=== PATIENT | male | born 1990 | race Caucasian/White ===

== ENCOUNTER 2017-02-11 14:02 | Inpatient (IN) | payer BC, OTHER ==
[~2017-02-11] VITALS: Ht 188 cm; Wt 154.7 kg
[~2017-02-11 14:02] MED LIST: PIPERACILLIN/TAZOBACTAM 4.5 GM/NS 100 ML IVPB IV SCH
--- NOTE | 2017-02-11 14:36 | ED Abdominal Pain ---
General Chief Complaint: Abdominal/GI Problems Stated Complaint: ABD PAIN Nursing Triage Note: FREQUENT UTI'S, BLOODY BM OVER THE PAST YEAR. Sepsis Screen: No Definite Risk Source of Information: Patient Exam Limitations: No Limitations History of Present Illness Time Seen By Provider: 14:34 Initial Comments To ER with intermittent abdominal pain suprapubic and left lower quadrant in location over the past year. [facility] and is told that he has a urinary tract infection but they recur. He also states that he lost about 50 pounds over the past year and has occasionally some bloody or dark black stools. He was told at one point that someone thought he had ulcerative colitis but he is never seen a surgeon for colonoscopy. Timing/Duration: 1-2 Days Severity/Quality: Cramping Location: Suprapubic Radiation: No Radiation Activities at Onset: None Associated Symptoms: No Fever/Chills, No Nausea/Vomiting Allergies and Home Medications Allergies Coded Allergies: No Allergy Information Available (Unverified , 02/11/17) Home Medications Ciprofloxacin HCl 500 Mg Tablet, 500 MG PO BID, #20 Prescribed by: YESY MOSS on 02/11/17 1626 Hydrocodone/Acetaminophen 1 Each Tablet, 1 EACH PO Q4H PRN for PAIN-MODERATE TO SEVERE, #14 Prescribed by: YESY MOSS on 02/11/176 Metronidazole 500 Mg Tablet, 500 MG PO TID for 30 Days Prescribed by: YESY MOSS on 02/11/176 Review of Systems Constitutional: see HPI EENTM: No Symptoms Reported Respiratory: No Symptoms Reported Cardiovascular: No Symptoms Reported Gastrointestinal: See HPI, Abdominal Pain Genitourinary: No Symptoms Reported Musculoskeletal: no symptoms reported Skin: no symptoms reported Psychiatric/Neurological: No Symptoms Reported Endocrine: No Symptoms Reported Hematologic/Lymphatic: No Symptoms Reported Past Mgjgtun-Meycro-Xipjva Hx Patient Social History Alcohol Use: Denies Use Recreational Drug Use: No Smoking Status: Never a Smoker Type Used: Electronic/Vapor Recent Foreign Travel: No Contact w/Someone Who Travel: No Recent Infectious Disease Expo: No Recent Hopitalizations: No Surgeries HX Surgeries: No Respiratory Hx Respiratory Disorders: No Cardiovascular Hx Cardiac Disorders: No Neurological Hx Neurological Disorders: No Genitourinary Hx Genitourinary Disorders: No Musculoskeletal Hx Musculoskeletal Disorders: No Endocrine Hx Endocrine Disorders: No Cancer Hx Cancer: No Physical Exam Vital Signs VS - Last 72 Hours, by Label 02/11/17 14:23 Temp 98.3 Pulse 100 Resp 18 B/P (MAP) 146/102 Pulse Ox 97 Capillary Refill : Less Than 3 Seconds General Appearance: WD/WN, no apparent distress, obese HEENT: PERRL/EOMI, normal ENT inspection Neck: non-tender, full range of motion Respiratory: lungs clear, normal breath sounds, no respiratory distress, no accessory muscle use Cardiovascular: regular rate, rhythm, no murmur Gastrointestinal: normal bowel sounds, non tender, soft Extremities: normal range of motion, non-tender, normal inspection Neurologic/Psychiatric: alert, normal mood/affect, oriented x 3 Skin: normal color, warm/dry Progress/Results/Core Measures Results/Orders Lab Results Laboratory Tests Test 02/11/17 14:22 02/11/17 14:27 02/11/17 14:30 Range/Units White Blood Count 19.2 H 4.3-11.0 10^3/uL Red Blood Count 5.23 4.35-5.85 10^6/uL Hemoglobin 15.5 13.3-17.7 G/DL Hematocrit 45 40-54 % Mean Corpuscular Volume 86 80-99 FL Mean Corpuscular Hemoglobin 30 25-34 PG Mean Corpuscular Hemoglobin Concent 34 32-36 G/DL Red Cell Distribution Width 13.3 10.0-14.5 % Platelet Count 314 130-400 10^3/uL Mean Platelet Volume 9.7 7.4-10.4 FL Neutrophils (%) (Auto) 85 H 42-75 % Lymphocytes (%) (Auto) 8 L 12-44 % Monocytes (%) (Auto) 6 0-12 % Eosinophils (%) (Auto) 1 0-10 % Basophils (%) (Auto) 0 0-10 % Neutrophils # (Auto) 16.3 H 1.8-7.8 X 10^3 Lymphocytes # (Auto) 1.6 1.0-4.0 X 10^3 Monocytes # (Auto) 1.2 H 0.0-1.0 X 10^3 Eosinophils # (Auto) 0.1 0.0-0.3 10^3/uL Basophils # (Auto) 0.1 0.0-0.1 10^3/uL Neutrophils % (Manual) 86 % Lymphocytes % (Manual) 3 % Monocytes % (Manual) 8 % Eosinophils % (Manual) 0 % Basophils % (Manual) 0 % Band Neutrophils 3 % Blood Morphology Comment NORMAL Erythrocyte Sedimentation Rate 5 0-15 MM/HR Sodium Level 139 135-145 MMOL/L Potassium Level 4.3 3.6-5.0 MMOL/L Chloride Level 104 98-107 MMOL/L Carbon Dioxide Level 26 21-32 MMOL/L Anion Gap 9 5-14 MMOL/L Blood Urea Nitrogen 10 7-18 MG/DL Creatinine 0.84 0.60-1.30 MG/DL Estimat Glomerular Filtration Rate > 60 BUN/Creatinine Ratio 12 Glucose Level 94 70-105 MG/DL Calcium Level 9.5 8.5-10.1 MG/DL Total Bilirubin 1.3 H 0.1-1.0 MG/DL Aspartate Amino Transf (AST/SGOT) 26 5-34 U/L Alanine Aminotransferase (ALT/SGPT) 45 0-55 U/L Alkaline Phosphatase 70 40-136 U/L Total Protein 8.5 H 6.4-8.2 G/DL Albumin 4.6 H 3.2-4.5 G/DL Urine Color YELLOW Urine Clarity CLEAR Urine pH 7 5-9 Urine Specific [place] 1.010 L 1.016-1.022 Urine Protein NEGATIVE NEGATIVE Urine Glucose (UA) NEGATIVE NEGATIVE Urine Ketones NEGATIVE NEGATIVE Urine Nitrite NEGATIVE NEGATIVE Urine Bilirubin NEGATIVE NEGATIVE Urine Urobilinogen 1 NORMAL MG/DL Urine Leukocyte Esterase 1+ H NEGATIVE Urine RBC (Auto) NEGATIVE NEGATIVE Urine RBC NONE /HPF Urine WBC RARE /HPF Urine Squamous Epithelial Cells 2-5 /HPF Urine Crystals NONE /LPF Urine Bacteria NEGATIVE /HPF Urine Casts NONE /LPF Urine Mucus NEGATIVE /LPF Urine Culture Indicated NO My Orders Orders - YESY MOSS APRN Cbc With Automated Diff (02/11/17 14:33) Comprehensive Metabolic Panel (02/11/17 14:33) Ua Culture If Indicated (02/11/17 14:33) Saline Lock/Iv-Start (02/11/17 14:33) Erythrocyte Sedimentation Rate (02/11/17 14:33) Ct Abdomen/Pelvis W (02/11/17 14:33) Manual Differential (02/11/17 14:22) Piperacillin Sodium/Tazobactam (Zosyn Vi (02/11/17 16:15) Ketorolac Injection (Toradol Injection) (02/11/17 16:15) Fentanyl Injection (Sublimaze Injection (02/11/17 16:15) Medications Given in ED Current Medications Medications Dose Ordered Sig/Sharon Route Start Time Stop Time Status Last Admin Dose Admin Fentanyl Citrate 50 mcg ONCE ONCE IVP 02/11/17 16:15 02/11/17 16:16 DC 02/11/17 16:41 50 MCG Ketorolac Tromethamine 30 mg ONCE ONCE IVP 02/11/17 16:15 02/11/17 16:16 DC 02/11/17 16:41 30 MG Piperacillin Sod/ Tazobactam Sod 4.5 gm/Sodium Chloride 100 ml @ 200 mls/hr ONCE ONCE IV 02/11/17 16:15 02/11/17 16:44 DC 02/11/17 16:44 200 MLS/HR Vital Signs/I&O Vital Sign - Last 12Hours 02/11/17 14:23 Temp 98.3 Pulse 100 Resp 18 B/P (MAP) 146/102 Pulse Ox 97 Blood Pressure Mean: 117 Departure Communication Time/Spoke to Admitting Phy: 17:29 Communication I discussed the case with Dr. SALDAÑA will review the CT scan and labs and waxes recommend inpatient admission. I just spoke with Dr. Yao Valera who has agreed to see the patient this Saturday at 10 a.m. to establish care. [facility] but states that he is seen him several times for this and couldn't seem to get a straight answer and would like his care transferred. Time/Spoke to Consulting Physi: 17:30 Communication/Consulting We will admit to Dr. Yao Valera, consult Dr. Saldaña. Impression Impression: Primary Impression: Sigmoid diverticulitis Disposition: ADMITTED INPATIENT Condition: Stable Departure-Patient Inst. Decision time for Depature: 16:22 Referrals: [facility] [place]) Primary Care Physician YAO VALERA MD Patient Instructions: Diverticulitis (DC) Add. Discharge Instructions: 1. Clear liquids only for the next 24 hours this includes soup, Gatorade, Jell- O, chicken broth or anything that you can see through 2. You must return probably to the emergency room for any high fevers, worsening pain or other concerns 3. Start the antibiotics tonight 4. Your scheduled to see Dr. Yao Valera Saturday morning at 11 a.m. at his office. The address is been provided. You should bring your insurance card and a photo ID with you. All discharge instructions reviewed with patient and/ or family. Voiced understanding. Scripts Metronidazole (Flagyl) 500 Mg Tablet 500 MG PO TID for 30 Days, TAB Prov: YESY MOSS APRN 02/11/17 Ciprofloxacin HCl (Cipro) 500 Mg Tablet 500 MG PO BID, #20 TAB Prov: YESY MOSS APRN 02/11/17 Hydrocodone/Acetaminophen ([place] 5-325 Tablet) 1 Each Tablet 1 EACH PO Q4H Y for PAIN-MODERATE TO SEVERE, #14 TAB Prov: YESY MOSS APRN 02/11/17 Work/School Note: Work Release Form Date Seen in the Emergency Department: Feb 14, 2017 Return to Work: Feb 11, 2017 Restrictions: No Restrictions Copy Copies To 1: YAO VALERA MD, PETER J APRN Feb 11, 2017 14:36
[2017-02-11 14:42] LABS: BASOPHILS # (AUTO) 0.1 10^3/uL (0.0-0.1); BASOPHILS % (AUTO) 0 % (0-10); EOSINOPHILS # (AUTO) 0.1 10^3/uL (0.0-0.3); EOSINOPHILS % (AUTO) 1 % (0-10); LYMPHOCYTES # (AUTO) 1.6 X 10^3 (1.0-4.0); LYMPHOCYTES % (AUTO) 8 % (12-44); MEAN CORPUSCULAR HEMOGLOBIN 30 PG (25-34); MEAN CORPUSCULAR HGB CONC 34 G/DL (32-36); MEAN CORPUSCULAR VOLUME 86 FL (80-99); MEAN PLATELET VOLUME 9.7 FL (7.4-10.4); MONOCYTES # (AUTO) 1.2 X 10^3 (0.0-1.0); MONOCYTES % (AUTO) 6 % (0-12); NEUTROPHILS # (AUTO) 16.3 X 10^3 (1.8-7.8); NEUTROPHILS % (AUTO) 85 % (42-75); PLATELET COUNT 314 10^3/uL (130-400); RED BLOOD COUNT 5.23 10^6/uL (4.35-5.85); RED CELL DISTRIBUTION WIDTH 13.3 % (10.0-14.5); WHITE BLOOD COUNT 19.2 10^3/uL (4.3-11.0)
[2017-02-11 14:49] LABS: BILIRUBIN,URINE NEGATIVE (NEGATIVE); KETONES,URINE NEGATIVE (NEGATIVE); LEUKOCYTE ESTERASE ,URINE 1+ (NEGATIVE); NITRITE,URINE NEGATIVE (NEGATIVE); PH,URINE 7 (5-9); PROTEIN,URINE NEGATIVE (NEGATIVE); UROBILINOGEN,URINE 1 MG/DL (NORMAL)
[2017-02-11 14:55] LABS: WBC,URINE RARE /HPF
[2017-02-11 14:57] LABS: BAND NEUTROPHILS 3 %; BASOPHILS % (MANUAL) 0 %; EOSINOPHILS % (MANUAL) 0 %; LYMPHOCYTES % (MANUAL) 3 %; NEUTROPHILS % (MANUAL) 86 %
[2017-02-11 15:02] LABS: ERYTHROCYTE SEDIMENTATION RATE 5 MM/HR (0-15)
[2017-02-11 15:02] LABS: ALANINE AMINOTRANSFERASE 45 U/L (0-55); ALBUMIN 4.6 G/DL (3.2-4.5); ANION GAP 9 MMOL/L (5-14); ASPARTATE AMINO TRANSFERASE 26 U/L (5-34); BILIRUBIN,TOTAL 1.3 MG/DL (0.1-1.0); BLOOD UREA NITROGEN 10 MG/DL (7-18); BUN/CREATININE RATIO 12; CALCIUM 9.5 MG/DL (8.5-10.1); CARBON DIOXIDE 26 MMOL/L (21-32); CHLORIDE 104 MMOL/L (98-107); CREATININE SERUM 0.84 MG/DL (0.60-1.30); GFR ESTIMATED > 60; GLUCOSE 94 MG/DL (70-105); POTASSIUM 4.3 MMOL/L (3.6-5.0); SODIUM 139 MMOL/L (135-145); TOTAL PROTEIN 8.5 G/DL (6.4-8.2)
--- NOTE | 2017-02-11 16:12 | Diagnostic Imaging Report ---
PROCEDURE: CT abdomen and pelvis with contrast. TECHNIQUE: Multiple contiguous axial images were obtained through the abdomen and pelvis after administration of intravenous contrast. INDICATION: Abdominal pain. 100 mL of Omnipaque-350 is administered intravenously. FINDINGS: There is sigmoid diverticulitis with significant inflammation around the sigmoid colon and loculated air anteriorly probably related to the ruptured diverticulum. There is minimal amount of fluid seen with no abscess formation. Small amount of free fluid in the pelvis in the cul-de-sac and adjacent to the superior right side aspect of the urinary bladder also noted. There is normal appearance of the appendix. There is no bowel obstruction. The abdominal aorta is normal in caliber. No para-aortic significantly enlarged lymph node is seen. No free air. The kidneys have symmetric contrast enhancement. There is a nonobstructive stone in the mid right kidney measuring 4 mm. No hydronephrosis. The liver demonstrates diffuse steatosis. No focal lesion seen. The gallbladder demonstrates no calcified stone. The spleen is 16.2 cm in AP dimension, mildly enlarged. The adrenals and the pancreas appear unremarkable. The lung bases appear clear. The osseous structures appear grossly unremarkable. IMPRESSION: Acute sigmoid diverticulitis. No abscess. The findings were discussed with Pio Jones, the ER physician esl instructional assistant taking care of the patient, at time of dictation. Dictated by: Dictated on workstation # [id number]
[2017-02-11] MEDS ORDERED: fentaNYL INJECTION 100 MCG/2 ML AMP IVP ONE (16:15)
[2017-02-11] MEDS ORDERED: PIPERACILLIN SODIUM/TAZOBACTAM 4.5 GM in NS (IVPB) 100 ML IV ONE (16:15)
[2017-02-11] MEDS ORDERED: KETOROLAC 30 MG/ML VIAL IVP ONE (16:15)
[2017-02-11] MEDS ORDERED: METR500T PO (16:26)
[2017-02-11] MEDS ORDERED: HYDR-757 PO (16:26)
[2017-02-11] MEDS ORDERED: CIPR-225 PO (16:26)
[2017-02-11] MEDS ORDERED: NS IV 1000 ML 1,000 ML IV SCH (19:15)
--- NOTE | 2017-02-11 19:15 | Consultation ---
History of Present Illness History of Present Illness Patient Consulted On(tyrone/time) 02/11/17 19:08 Date of Admission 02/11/17 History of Present Illness Surgery is consulted regarding Diverticulitis. HPI: Chief Complaint: Abdominal/GI Problems, Pt to ER with intermittent abdominal pain suprapubic and left lower quadrant in location over the past year ; "since March". He has been to [facility] for these episodes and was told that he had a urinary tract infection. However, he states they recur every month. He also states that he lost about 50 pounds over the past year and has occasionally some bloody or dark black stools. He was told at one point that someone thought he had ulcerative colitis but he is never seen a surgeon for colonoscopy. He also states he was told "my liver tests are elevated". Complains of changes in bowel habits, "loose stools and then constipation". Rating the pain as 4-5 out of 10, on 1-10 scale. Helped by taking ABX, not really sure if anything makes it worse. Denies seeing any air, flecks of brown while urinating. This episode has lasted 1-2 Days. Describes it as more of a cramping. Located suprapubically, used to radiate into his back...but not with this episode. Pt denies Fever/Chills, No Nausea/Vomiting. No elevated temp this time, but has had 101 and 102 temps with previous episodes. He thinks it usually starts in LLQ and goes down toward "bladder". Allergies and Home Medications Allergies Coded Allergies: No Allergy Information Available (Unverified , 02/11/17) Home Medications Ciprofloxacin HCl 500 Mg Tablet, 500 MG PO BID, #20 Prescribed by: YESY MOSS on 02/11/17 1626 Hydrocodone/Acetaminophen 1 Each Tablet, 1 EACH PO Q4H PRN for PAIN-MODERATE TO SEVERE, #14 Prescribed by: YESY MOSS on 02/11/17 1626 Metronidazole 500 Mg Tablet, 500 MG PO TID for 30 Days Prescribed by: YESY MOSS on 02/11/17 1626 Past Bpqgjpq-Kfwfvu-Hgkghn Hx Patient Social History Alcohol Use: Denies Use Recreational Drug Use: No Smoking Status: Never a Smoker Type Used: Electronic/Vapor Recent Foreign Travel: No Contact w/Someone Who Travel: No Recent Infectious Disease Expo: No Recent Hopitalizations: No Surgeries HX Surgeries: No Respiratory Hx Respiratory Disorders: No Cardiovascular Hx Cardiac Disorders: No Neurological Hx Neurological Disorders: No Genitourinary Hx Genitourinary Disorders: No Musculoskeletal Hx Musculoskeletal Disorders: No Endocrine Hx Endocrine Disorders: No Cancer Hx Cancer: No Family Medical History Significant Family History: Diabetes (mother type I, father and grandparents type II), GI Disease (Pt denies any history of colon problems in his family) Review of Systems-General Constitutional: No chills, No diaphoresis, No dizziness, malaise, weight loss ( 50 lbs since March) EENTM: No blurred vision, No dental problems, No double vision, No ear pain, No throat pain, No throat swelling Respiratory: No cough, No dyspnea on exertion, No hemoptysis, No short of breath Cardiovascular: No chest pain, No edema, No palpitations Gastrointestinal: LLQ, constipation, diarrhea, melena, No vomiting Genitourinary: dysuria, frequency, No hematuria Musculoskeletal: back pain, No joint pain, No muscle pain, No muscle weakness Skin: No change in color, No change in hair/nails, No lesions Psychiatric/Neurological: Denies Anxiety, Denies Seizure, Denies Tingling, Denies Tremors Other pt denies any abnormal bleeding, no heat or cold intolerance. Denies any swollen lymph nodes Physical Exam-General Problems Physical Exam Vital Signs Vital Sign - Last 12Hours 02/11/17 14:23 Temp 98.3 Pulse 100 Resp 18 B/P (MAP) 146/102 Pulse Ox 97 Capillary Refill : Less Than 3 Seconds General Appearance: WD/WN, mild distress, obese Eyes: Bilateral Eye EOMI, Bilateral Eye PERRL HEENT: pharynx normal, No scleral icterus (R), No scleral icterus (L), No pale conjunctivae (R), No pale conjunctivae (L) Neck: non-tender, full range of motion, supple, normal inspection Respiratory: chest non-tender, lungs clear, normal breath sounds, no respiratory distress, no accessory muscle use Cardiovascular: regular rate, rhythm, no edema, no gallop, no murmur Peripheral Pulses: 4+ Carotid (R), 4+ Carotid (L), 4+ Radial Pulses (R), 4+ Radial Pulses (L) Gastrointestinal: normal bowel sounds, no organomegaly, no pulsatile mass, guarding (voluntary in LLQ), No rebound, hernia (small UH, questionable small RIH) Back: normal inspection, no CVA tenderness, no vertebral tenderness Extremities: normal range of motion, non-tender, normal inspection, no pedal edema, no calf tenderness 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3H, Lymphocytes # (Auto) 1.6, Monocytes # (Auto) 1.2H, Eosinophils # (Auto) 0.1, Basophils # (Auto) 0.1, Neutrophils % (Manual) 86, Lymphocytes % (Manual) 3, Monocytes % (Manual) 8, Eosinophils % (Manual) 0, Basophils % (Manual) 0, Band Neutrophils 3, Blood Morphology Comment NORMAL, Erythrocyte Sedimentation Rate 5 02/11/17 14:27: Sodium Level 139, Potassium Level 4.3, Chloride Level 104, Carbon Dioxide Level 26, Anion Gap 9, Blood Urea Nitrogen 10, Creatinine 0.84, Estimat Glomerular Filtration Rate > 60, BUN/Creatinine Ratio 12, Glucose Level 94, Calcium Level 9.5, Total Bilirubin 1.3H, Aspartate Amino Transf (AST/SGOT) 26, Alanine Aminotransferase (ALT/SGPT) 45, Alkaline Phosphatase 70, Total Protein 8.5H, Albumin 4.6H 02/11/17 14:30: Urine Color YELLOW, Urine Clarity CLEAR, Urine pH 7, Urine Specific [place] 1.010L, Urine Protein NEGATIVE, Urine Glucose (UA) NEGATIVE, Urine Ketones NEGATIVE, Urine Nitrite NEGATIVE, Urine Bilirubin NEGATIVE, Urine Urobilinogen 1 , Urine Leukocyte Esterase 1+H, Urine RBC (Auto) NEGATIVE, Urine RBC NONE, Urine WBC RARE, Urine Squamous Epithelial Cells 2-5, Urine Crystals NONE, Urine Bacteria NEGATIVE, Urine Casts NONE, Urine Mucus NEGATIVE, Urine Culture Indicated NO Assessment/Plan Assessment/Plan Assessment/Plan 1. Acute Diverticulitis with contained perforation 2. Chronic UTI's 3. Leukocytosis secondary to #1 4. Hypertension Plan is IVF, IV ABX, NPO, recheck labs. Pt may have a [place]-vesical fistula, will obtain a Urology consult (which can be done as an outpt). Pt will need a colonoscopy, also can probably be done as an outpt. I talked with pt and his for over 40 min, we talked about the amount of time he has had symptoms and problems. Discussed the natural course of Diverticulitis and whether it is affecting his daily life. I also talked about my suspicions of a fistula. He most likely will need surgery sooner rather than; but not during this admission. We talked about surgery and timing; don't want to risk a possible ostomy. All questions answered to their satisfaction. I will follow while he is in the hospital and then would schedule a visit once he is discharged. His high blood pressure may be due to pain, but could be due to body habitus; should be monitored. BESS JACKSON DO Feb 11, 2017 19:15
[2017-02-11] MEDS: LACTATED RINGERS 1,000 ML IV SCH (19:53)
[2017-02-11 19:55] VITALS: BP 122/69
[2017-02-11] MEDS: fentaNYL INJECTION 100 MCG/2 ML AMP IVP PRN (20:47)
--- NOTE | 2017-02-11 21:49 | History & Physical ---
History of Present Illness History of Present Illness Reason for visit/HPI 26 yo Male admitted for acute sigmoid diverticulitis- patient reports this abdominal pain has been going on for a while estimates about March 2016 at least. Patient has been a patient of [facility] and plans to transfer to [facility] for further evaluation of his medical concerns. Patient reports he's had approximately 10 urinary tract infections and he has been on antibiotics by [facility] and he improves during the duration of being on antibiotic but the abdominal pain returns. He has not had any further workup for these recurrent UTIs just treated with antibiotics each time. Patient does report a 50 pound weight loss over the past year but he cannot explain it as he hasn't really changed his diet much nor has he increased his exercise regimen. Patient has had bloody and/or dark black stools along with sometimes diarrhea sometimes constipation. 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 Patient denies any drug use nor any tobacco use but does use a vapor device. Patient also quit drinking right after his honeymoon as he was told his liver function tests were elevated. Patient's abdominal pain is LLQ currently- IVF, zosyn and fentanyl are helping him currently. He is NPO. CT of abdomen demonstrating diverticulitis concern for possible contained perforation. Admitted for further work up. Dr. Kong consulted and on the case. He he got in August 2016 and reports he remembers taking pain medications just to get through wedding pictures. Date of Admission Feb 11, 2017 at 17:25 I consulted on this patient on 02/11/17 21:37 Attending Physician Yao Valera MD Admitting Physician Yao Valera MD Consult Dr. Kong Allergies and Home Medications Allergies Coded Allergies: cat dander (Verified Allergy, Unknown, 02/11/17) Home Medications Loratadine 10 Mg Tablet, 10 MG PO DAILY PRN for ALLERGIES, (Reported) Naproxen Sodium 220 Mg Tablet, 220-440 MG PO Q8H PRN for PAIN-MILD, (Reported) Past Bsnoxbo-Omobbd-Zyeita Hx Patient Social History Alcohol Use: Denies Use Recreational Drug Use: No Smoking Status: Never a Smoker Type Used: Electronic/Vapor Recent Foreign Travel: No Contact w/other who traveled: No Recent Hopitalizations: No Recent Infectious Disease Expo: No Surgeries HX Surgeries: No Respiratory Hx Respiratory Disorders: No Cardiovascular Hx Cardiovascular Disorders: No Neurological Hx Neurological Disorders: No Genitourinary Hx Genitourinary Disorders: No Musculoskeletal Hx Musculoskeletal Disorders: No Endocrine Hx Endocrine Disorders: No Cancer Hx Cancer: No Family Medical History Significant Family History: Diabetes (mother type I, father and grandparents type II), GI Disease (Pt denies any history of colon problems in his family) Family Hx: Diabetes mellitus 19 FATHER 19 MOTHER Review of Systems Review of Systems General: No Chills, No Night Sweats, Fatigue, Malaise, Appetite HEENT: Head Aches (occassional) Pulmonary: No Dyspnea, No Cough Cardiovascular: No: Chest Pain, Palpitations Gastrointestinal: Abdominal Pain, No: Nausea, Vomiting Genitourinary: No Dysuria Musculoskeletal: back pain, No: neck pain Neurological: No: Numbness, Weakness Physical Exam Vital Signs Vital Sign - Last 12Hours 02/11/17 02/11/17 14:23 19:55 Temp 98.3 Pulse 100 Resp 18 B/P (MAP) 146/102 Pulse Ox 97 O2 Delivery Room Air Capillary Refill : Less Than 3 Seconds General Appearance: Mild Distress HEENT: PERRL/EOMI Neck: Full Range of Motion, Non Tender Respiratory: Chest Non Tender, Lungs Clear, Normal Breath Sounds, No Accessory Muscle Use, No Respiratory Distress Cardiovascular: Regular Rate, Rhythm, No Edema Gastrointestinal: Normal Bowel Sounds, Tenderness (LLQ) Rectal: Deferred Back: No CVA Tenderness Extremity: Non Tender, No Calf Tenderness Neurologic/Psychiatric: Alert, Oriented x3, No Motor/Sensory Deficits, Normal Mood/Affect Skin: Warm/Dry Assessment/Plan Assessment/Plan Assessment/Plan 26 yo M Acute sigmoid diverticulitis- IVF, fentanyl, zosyn- NPO for now- monitor WBC , fever, appetite -ulcerative colitis? Abdominal pain due to above- plan as above elevated BP w/o diagnosis of HTN- monitor, may be due to pain h/o recurrent UTIs- no work up- urology outpt referral for cystoscopy- possible fistula (colo-vesicular fistula)- Dispo: IVF, pain management, NPO- monitor- plan to d/c 02/13 or 2016- will need outpt colonoscopy- and likely surgery to resect bowel. Outpt workup with urology for recurrent uti. Problems: YAO VALERA MD Feb 11, 2017 21:49
[2017-02-11] MEDS: ONDANSETRON 4 MG/2 ML (SDV) Z0FRAN IVP PRN (22:44)
[2017-02-11] MEDS: PIPERACILLIN/TAZOBACTAM 4.5 GM/NS 100 ML IVPB IV SCH ×2 (22:57)
[2017-02-12 00:35] VITALS: BP 121/59
[2017-02-12] MEDS: LACTATED RINGERS 1,000 ML IV SCH ×4 (01:51→18:17)
[2017-02-12 04:28] VITALS: BP 110/55
[2017-02-12 05:12] LABS: BASOPHILS % (AUTO) 0 % (0-10); EOSINOPHILS % (AUTO) 0 % (0-10); LYMPHOCYTES % (AUTO) 11 % (12-44); MEAN CORPUSCULAR HEMOGLOBIN 30 PG (25-34); MEAN CORPUSCULAR HGB CONC 34 G/DL (32-36); MEAN CORPUSCULAR VOLUME 88 FL (80-99); MEAN PLATELET VOLUME 9.9 FL (7.4-10.4); MONOCYTES % (AUTO) 11 % (0-12); NEUTROPHILS # (AUTO) 14.4 X 10^3 (1.8-7.8); NEUTROPHILS % (AUTO) 78 % (42-75); PLATELET COUNT 287 10^3/uL (130-400); RED BLOOD COUNT 4.63 10^6/uL (4.35-5.85); RED CELL DISTRIBUTION WIDTH 13.2 % (10.0-14.5); WHITE BLOOD COUNT 18.4 10^3/uL (4.3-11.0)
[2017-02-12] MEDS: PIPERACILLIN/TAZOBACTAM 4.5 GM/NS 100 ML IVPB IV SCH ×6 (06:02→23:53)
[2017-02-12] MEDS: fentaNYL INJECTION 100 MCG/2 ML AMP IVP PRN ×2 (06:05→08:32)
[2017-02-12] MEDS: ONDANSETRON 4 MG/2 ML (SDV) Z0FRAN IVP PRN (06:05)
[2017-02-12 06:24] LABS: ALANINE AMINOTRANSFERASE 31 U/L (0-55); ALBUMIN 3.8 G/DL (3.2-4.5); ANION GAP 13 MMOL/L (5-14); ASPARTATE AMINO TRANSFERASE 21 U/L (5-34); BLOOD UREA NITROGEN 10 MG/DL (7-18); BUN/CREATININE RATIO 11; CALCIUM 8.9 MG/DL (8.5-10.1); CARBON DIOXIDE 23 MMOL/L (21-32); CHLORIDE 101 MMOL/L (98-107); CREATININE SERUM 0.89 MG/DL (0.60-1.30); GFR ESTIMATED > 60; GLUCOSE 104 MG/DL (70-105); POTASSIUM 3.9 MMOL/L (3.6-5.0); SODIUM 137 MMOL/L (135-145); TOTAL PROTEIN 7.1 G/DL (6.4-8.2)
[2017-02-12 08:00] VITALS: BP 138/86
[2017-02-12] MEDS ORDERED: NAPR220T66 PO (08:37)
[2017-02-12] MEDS ORDERED: LORA10TA76 PO (08:37)
[2017-02-12] MEDS: morphine INJ 4 MG/ML 1 ML (VIAL/SYRINGE) IVP PRN ×4 (10:33→22:24)
[2017-02-12 11:40] VITALS: BP 154/80
--- NOTE | 2017-02-12 13:12 | Progress Note ---
Subjective Subjective/Events-last exam Pt seen and examined, was having more pain this am; not helped by Fentanyl. I switched him to IV Morphine and that has helped. He states he felt "dehydrated" and was given some ice chips. Has not had a fever (not 100.4 or more yet). Pain rated as 3 out of 10 after morphine, but comes back in 2 hours. Review of Systems General: Fatigue, Malaise HEENT: No Head Aches, No Eye Pain Pulmonary: No Dyspnea, No Cough Cardiovascular: No: Chest Pain, Palpitations Gastrointestinal: Abdominal Pain, No: Vomiting Genitourinary: Dysuria, No Hematuria Objective Exam Vital Signs Date Time Temp Pulse Resp B/P (MAP) Pulse Ox O2 Delivery O2 Flow Rate FiO2 02/12/17 11:40 100.0 106 16 154/80 93 Room Air 02/12/17 10:10 98 02/12/17 08:36 99.8 02/12/17 08:00 97.6 83 18 138/86 98 Room Air 02/12/17 04:28 98.7 85 18 110/55 97 Room Air 02/12/17 00:35 97.7 100 20 121/59 97 Room Air 02/11/17 19:55 99.4 112 18 122/69 98 Room Air 02/11/17 18:44 98 16 96 02/11/17 14:23 98.3 100 18 146/102 97 I & O 02/12/17 07:00 Intake Total 1200 ml Output Total 825 ml Balance 375 ml Capillary Refill : Less Than 3 Seconds General Appearance: WD/WN, Mild Distress HEENT: PERRL/EOMI Neck: Full Range of Motion, Non Tender Respiratory: Chest Non Tender, Lungs Clear, Normal Breath Sounds, No Accessory Muscle Use, No Respiratory Distress Cardiovascular: Regular Rate, Rhythm, No Edema Peripheral Pulses: 4+ Carotid (R), 4+ Carotid (L), 4+ Radial Pulses (R), 4+ Radial Pulses (L) Gastrointestinal: normal bowel sounds, no organomegaly, no pulsatile mass, guarding (voluntary in LLQ), No rebound, hernia (small UH, questionable small RIH) Extremity: Non Tender, No Calf Tenderness Neurologic/Psychiatric: Alert, Oriented x3, No Motor/Sensory Deficits, Normal Mood/Affect Skin: Warm/Dry Results Lab Laboratory Tests 02/11/17 14:22: White Blood Count 19.2H, Red Blood Count 5.23, Hemoglobin 15.5, Hematocrit 45, Mean Corpuscular Volume 86, Mean Corpuscular Hemoglobin 30, Mean Corpuscular Hemoglobin Concent 34, Red Cell Distribution Width 13.3, Platelet Count 314, Mean Platelet Volume 9.7, Neutrophils (%) (Auto) 85H, Lymphocytes (%) (Auto) 8L , Monocytes (%) (Auto) 6, Eosinophils (%) (Auto) 1, Basophils (%) (Auto) 0, Neutrophils # (Auto) 16.3H, Lymphocytes # (Auto) 1.6, Monocytes # (Auto) 1.2H, Eosinophils # (Auto) 0.1, Basophils # (Auto) 0.1, Neutrophils % (Manual) 86, Lymphocytes % (Manual) 3, Monocytes % (Manual) 8, Eosinophils % (Manual) 0, Basophils % (Manual) 0, Band Neutrophils 3, Blood Morphology Comment NORMAL, Erythrocyte Sedimentation Rate 5 02/11/17 14:27: Sodium Level 139, Potassium Level 4.3, Chloride Level 104, Carbon Dioxide Level 26, Anion Gap 9, Blood Urea Nitrogen 10, Creatinine 0.84, Estimat Glomerular Filtration Rate > 60, BUN/Creatinine Ratio 12, Glucose Level 94, Calcium Level 9.5, Total Bilirubin 1.3H, Aspartate Amino Transf (AST/SGOT) 26, Alanine Aminotransferase (ALT/SGPT) 45, Alkaline Phosphatase 70, Total Protein 8.5H, Albumin 4.6H 02/11/17 14:30: Urine Color YELLOW, Urine Clarity CLEAR, Urine pH 7, Urine Specific [place] 1.010L, Urine Protein NEGATIVE, Urine Glucose (UA) NEGATIVE, Urine Ketones NEGATIVE, Urine Nitrite NEGATIVE, Urine Bilirubin NEGATIVE, Urine Urobilinogen 1 , Urine Leukocyte Esterase 1+H, Urine RBC (Auto) NEGATIVE, Urine RBC NONE, Urine WBC RARE, Urine Squamous Epithelial Cells 2-5, Urine Crystals NONE, Urine Bacteria NEGATIVE, Urine Casts NONE, Urine Mucus NEGATIVE, Urine Culture Indicated NO 02/12/17 04:10: White Blood Count 18.4H, Red Blood Count 4.63, Hemoglobin 13.9, Hematocrit 41, Mean Corpuscular Volume 88, Mean Corpuscular Hemoglobin 30, Mean Corpuscular Hemoglobin Concent 34, Red Cell Distribution Width 13.2, Platelet Count 287, Mean Platelet Volume 9.9, Neutrophils (%) (Auto) 78H, Lymphocytes (%) (Auto) 11L , Monocytes (%) (Auto) 11, Eosinophils (%) (Auto) 0, Basophils (%) (Auto) 0, Neutrophils # (Auto) 14.4H, Lymphocytes # (Auto) 2.0, Monocytes # (Auto) 2.0H, Eosinophils # (Auto) 0.0, Basophils # (Auto) 0.0, Sodium Level 137, Potassium Level 3.9, Chloride Level 101, Carbon Dioxide Level 23, Anion Gap 13, Blood Urea Nitrogen 10, Creatinine 0.89, Estimat Glomerular Filtration Rate > 60, BUN/ Creatinine Ratio 11, Glucose Level 104, Calcium Level 8.9, Total Bilirubin 2.0H , Aspartate Amino Transf (AST/SGOT) 21, Alanine Aminotransferase (ALT/SGPT) 31, Alkaline Phosphatase 58, Total Protein 7.1, Albumin 3.8 Assessment/Plan Assessment/Plan Assessment/Plan 1. Acute Sigmoid Diverticulitis with ?? Colovesical fistula 2. HTN 3. Chronic UTI 4. Elevated Bilirubin Plan: Continue IV fluids and IV ABX. Recheck labs. Not sure why Bilirubin is elevated, will order liver panel. Switched pain meds for better pain control. Spoke with Dr. Castillo, will see pt as outpt. Ice chips ok, would avoid PO because Diverticulitis does not seem to be improving quickly. Would hold PO until pain almost gone and WBC down to almost normal. Dr. Byrd will cover for me from 02/13-02/18. Clinical Quality Measures DVT/VTE Risk/Contraindication: Risk Factor Score Per Nursin RFS Level Per Nursing on Admit: 2=Moderate BESS JACKSON DO Feb 12, 2017 13:12
[2017-02-12 16:32] VITALS: BP 104/62
[2017-02-12 20:55] VITALS: BP 103/66
[2017-02-12] MEDS: metroNIDAZOLE 500MG/100ML IVPB 100 ML IV SCH (22:23)
--- NOTE | 2017-02-12 23:13 | Progress Note (SOAP) ---
Subjective Subjective 26 yo M- doing okay- feels dehydrated- would like a drink of water- feels like he would improve if he could get some fluids. Fentanyl not quite lasting long enough for pain management. Denies having a bowel movement- as he thought he would have one overnight. Review of Systems General: Fatigue, Malaise HEENT: No Head Aches, No Eye Pain Pulmonary: No Dyspnea, No Cough Cardiovascular: No: Chest Pain, Palpitations Gastrointestinal: Abdominal Pain, No: Vomiting Genitourinary: Dysuria, No Hematuria Musculoskeletal: back pain, No: neck pain Neurological: No: Numbness, Weakness Objective Exam Vital Signs Vital Signs Date Time Temp Pulse Resp B/P (MAP) Pulse Ox O2 Delivery O2 Flow Rate FiO2 02/12/17 20:55 101.9 101 20 103/66 97 Room Air 02/12/17 16:32 101.8 120 20 104/62 92 Room Air 02/12/17 11:40 100.0 106 16 154/80 93 Room Air 02/12/17 10:10 98 02/12/17 08:36 99.8 02/12/17 08:00 97.6 83 18 138/86 98 Room Air 02/12/17 04:28 98.7 85 18 110/55 97 Room Air 02/12/17 00:35 97.7 100 20 121/59 97 Room Air I & O 02/12/17 07:00 Intake Total 1200 ml Output Total 825 ml Balance 375 ml General Appearance: WD/WN, Mild Distress Eyes: Bilateral Eye EOMI, Bilateral Eye PERRL HEENT: PERRL/EOMI Neck: Full Range of Motion, Non Tender Respiratory: Chest Non Tender, Lungs Clear, Normal Breath Sounds, No Accessory Muscle Use, No Respiratory Distress Cardiovascular: Regular Rate, Rhythm, No Edema Gastrointestinal: Normal Bowel Sounds, Tenderness (LLQ) Rectal: Deferred Back: No CVA Tenderness Extremity: Non Tender, No Calf Tenderness Neurologic/Psychiatric: Alert, Oriented x3, No Motor/Sensory Deficits, Normal Mood/Affect Skin: Warm/Dry Results Lab Laboratory Tests 02/12/17 04:10: White Blood Count 18.4H, Red Blood Count 4.63, Hemoglobin 13.9, Hematocrit 41, Mean Corpuscular Volume 88, Mean Corpuscular Hemoglobin 30, Mean Corpuscular Hemoglobin Concent 34, Red Cell Distribution Width 13.2, Platelet Count 287, Mean Platelet Volume 9.9, Neutrophils (%) (Auto) 78H, Lymphocytes (%) (Auto) 11L , Monocytes (%) (Auto) 11, Eosinophils (%) (Auto) 0, Basophils (%) (Auto) 0, Neutrophils # (Auto) 14.4H, Lymphocytes # (Auto) 2.0, Monocytes # (Auto) 2.0H, Eosinophils # (Auto) 0.0, Basophils # (Auto) 0.0, Sodium Level 137, Potassium Level 3.9, Chloride Level 101, Carbon Dioxide Level 23, Anion Gap 13, Blood Urea Nitrogen 10, Creatinine 0.89, Estimat Glomerular Filtration Rate > 60, BUN/ Creatinine Ratio 11, Glucose Level 104, Calcium Level 8.9, Total Bilirubin 2.0H , Aspartate Amino Transf (AST/SGOT) 21, Alanine Aminotransferase (ALT/SGPT) 31, Alkaline Phosphatase 58, Total Protein 7.1, Albumin 3.8 02/12/17 13:20: 02/12/17 16:10: Lactic Acid Level 1.33 Assessment/Plan Assessment/Plan Assessment/Plan 26 yo M sepsis due to Acute sigmoid diverticulitis- IVF, morphine, zosyn- NPO for now - monitor WBC, fever, appetite may have ice chips. -ulcerative colitis? Abdominal pain due to above- plan as above elevated BP w/o diagnosis of HTN- monitor, may be due to pain- currently low normal. h/o recurrent UTIs- he has not had a work up- urology Dr. Castillo as an outpt referral for cystoscopy- possible fistula (colo-vesicular fistula)- Dispo: IVF, pain management, NPO- monitor- will need outpt colonoscopy- and likely surgery to resect bowel. Outpt workup with urology for recurrent uti. Condition- guarded- will monitor clinic exam. Problems: Clinical Quality Measures DVT/VTE Risk/Contraindication: Risk Factor Score Per Nursin RFS Level Per Nursing on Admit: 2=Moderate GILDARDO VALERA MD Feb 12, 2017 23:13
[2017-02-13] VITALS (7 sets, daily range): BP systolic 107–133; BP diastolic 56–88
[2017-02-13] MEDS: ACETAMINOPHEN 500 MG TAB (TYLENOL) PO PRN ×3 (00:32→18:29)
[2017-02-13] MEDS: morphine INJ 4 MG/ML 1 ML (VIAL/SYRINGE) IVP PRN ×3 (03:36→15:01)
[2017-02-13 05:05] LABS: BASOPHILS % (AUTO) 0 % (0-10); EOSINOPHILS % (AUTO) 0 % (0-10); LYMPHOCYTES % (AUTO) 5 % (12-44); MEAN CORPUSCULAR HEMOGLOBIN 30 PG (25-34); MEAN CORPUSCULAR HGB CONC 34 G/DL (32-36); MEAN CORPUSCULAR VOLUME 87 FL (80-99); MONOCYTES # (AUTO) 1.2 X 10^3 (0.0-1.0); MONOCYTES % (AUTO) 6 % (0-12); NEUTROPHILS % (AUTO) 89 % (42-75); PLATELET COUNT 268 10^3/uL (130-400); RED BLOOD COUNT 4.68 10^6/uL (4.35-5.85); RED CELL DISTRIBUTION WIDTH 13.4 % (10.0-14.5); WHITE BLOOD COUNT 20.3 10^3/uL (4.3-11.0)
[2017-02-13 05:29] LABS: ALBUMIN 3.7 G/DL (3.2-4.5); BILIRUBIN,DIRECT 1.2 MG/DL (0.0-0.3); BILIRUBIN,INDIRECT 1.2 MG/DL; BILIRUBIN,TOTAL 2.4 MG/DL (0.1-1.0); TOTAL PROTEIN 7.2 G/DL (6.4-8.2)
[2017-02-13] MEDS: metroNIDAZOLE 500MG/100ML IVPB 100 ML IV SCH (05:39)
[2017-02-13] MEDS: LACTATED RINGERS 1,000 ML IV SCH ×3 (05:39→17:42)
[2017-02-13] MEDS: ONDANSETRON 4 MG/2 ML (SDV) Z0FRAN IVP PRN ×3 (06:02→15:30)
[2017-02-13] MEDS: PIPERACILLIN/TAZOBACTAM 4.5 GM/NS 100 ML IVPB IV SCH ×4 (07:25→15:02)
--- NOTE | 2017-02-13 09:24 | Progress Note ---
Subjective Subjective/Events-last exam Patient states able to draw out pain medication more. Pain overall feeling better. Wbc up a little. Patient with fever overnight but 98.6 this am. No new complaints. Objective Exam Vital Signs Date Time Temp Pulse Resp B/P (MAP) Pulse Ox O2 Delivery O2 Flow Rate FiO2 02/13/17 08:00 98.6 91 16 129/84 96 Room Air 02/13/17 04:52 97.9 102 16 112/56 92 Room Air 02/13/17 01:31 98.9 02/13/17 00:32 101.2 02/13/17 00:00 101.2 111 20 122/60 91 Room Air 02/12/17 20:55 101.9 101 20 103/66 97 Room Air 02/12/17 16:32 101.8 120 20 104/62 92 Room Air 02/12/17 11:40 100.0 106 16 154/80 93 Room Air 02/12/17 10:10 98 I & O 02/13/17 07:00 Intake Total 2400 ml Output Total 275 ml Balance 2125 ml Capillary Refill : Less Than 3 Seconds General Appearance: Mild Distress HEENT: PERRL/EOMI Neck: Full Range of Motion, Non Tender Respiratory: Chest Non Tender, Lungs Clear, Normal Breath Sounds, No Accessory Muscle Use, No Respiratory Distress Cardiovascular: Regular Rate, Rhythm, No Edema Peripheral Pulses: 4+ Carotid (R), 4+ Carotid (L), 4+ Radial Pulses (R), 4+ Radial Pulses (L) Gastrointestinal: normal bowel sounds, no organomegaly, no pulsatile mass, No guarding, No rebound, tenderness (minimal tenderness suprapubic/llq), hernia ( small UH, questionable small RIH) Extremity: Non Tender, No Calf Tenderness Neurologic/Psychiatric: Alert, Oriented x3, No Motor/Sensory Deficits, Normal Mood/Affect Skin: Warm/Dry Lymphatic: No Adenopathy Results Lab Laboratory Tests 02/12/17 13:20: Hepatitis A IgM Antibody Non-Reactive, Hepatitis B Surface Antigen Non-Reactive , Hepatitis B Core IgM Antibody Non-Reactive, Hepatitis C Antibody Non-Reactive 02/12/17 16:10: Lactic Acid Level 1.33 02/13/17 04:05: White Blood Count 20.3H, Red Blood Count 4.68, Hemoglobin 14.0, Hematocrit 41, Mean Corpuscular Volume 87, Mean Corpuscular Hemoglobin 30, Mean Corpuscular Hemoglobin Concent 34, Red Cell Distribution Width 13.4, Platelet Count 268, Mean Platelet Volume 10.0, Neutrophils (%) (Auto) 89H, Lymphocytes (%) (Auto) 5L , Monocytes (%) (Auto) 6, Eosinophils (%) (Auto) 0, Basophils (%) (Auto) 0, Neutrophils # (Auto) 18.0H, Lymphocytes # (Auto) 1.0, Monocytes # (Auto) 1.2H, Eosinophils # (Auto) 0.0, Basophils # (Auto) 0.0, Total Bilirubin 2.4H, Direct Bilirubin 1.2H, Indirect Bilirubin 1.2, Aspartate Amino Transf (AST/SGOT) 14, Alanine Aminotransferase (ALT/SGPT) 23, Alkaline Phosphatase 56, Total Protein 7.2, Albumin 3.7 Assessment/Plan Assessment/Plan Assessment/Plan acute diverticulitis with 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 patient wbc up. fever overnight which is back to normal will continue to monitor fever bilirubin has been elevating up unknown cause. will switch to Meropenem May need repeat ct scan if no improvement, could be forming abscess will continue conservative management at this time Clinical Quality Measures DVT/VTE Risk/Contraindication: Risk Factor Score Per Nursin RFS Level Per Nursing on Admit: 2=Moderate CHHAYA WINTERS DO Feb 13, 2017 09:24
[2017-02-13] MEDS: MEROPENEM 500 MG/NS 100 ML IVPB IV SCH ×6 (10:11→20:35)
--- NOTE | 2017-02-13 10:22 | Progress Note (SOAP) ---
Subjective Subjective 26 yo M- doing okay- he did have a few fevers- apap given. Pt down in spirit this AM due to not getting progressively better- he would like to drink fluids and/or eat. Abdominal pain doing okay. Not worsening. He is passing gas, belching. No bowel movements. Review of Systems General: No Chills, No Night Sweats, Fatigue, Malaise, Appetite HEENT: Head Aches (occassional) Pulmonary: No Dyspnea, No Cough Cardiovascular: No: Chest Pain, Palpitations Gastrointestinal: Abdominal Pain, No: Nausea, Vomiting Genitourinary: No Dysuria Musculoskeletal: back pain, No: neck pain Neurological: No: Numbness, Weakness Objective Exam Vital Signs Vital Signs Date Time Temp Pulse Resp B/P (MAP) Pulse Ox O2 Delivery O2 Flow Rate FiO2 02/13/17 08:00 98.6 91 16 129/84 96 Room Air 02/13/17 04:52 97.9 102 16 112/56 92 Room Air 02/13/17 01:31 98.9 02/13/17 00:32 101.2 02/13/17 00:00 101.2 111 20 122/60 91 Room Air 02/12/17 20:55 101.9 101 20 103/66 97 Room Air 02/12/17 16:32 101.8 120 20 104/62 92 Room Air 02/12/17 11:40 100.0 106 16 154/80 93 Room Air I & O 02/13/17 07:00 Intake Total 2400 ml Output Total 275 ml Balance 2125 ml General Appearance: Mild Distress Eyes: Bilateral Eye EOMI, Bilateral Eye PERRL HEENT: PERRL/EOMI Neck: Full Range of Motion, Non Tender Respiratory: Chest Non Tender, Lungs Clear, Normal Breath Sounds, No Accessory Muscle Use, No Respiratory Distress Cardiovascular: Regular Rate, Rhythm, No Edema Gastrointestinal: Normal Bowel Sounds, Tenderness (LLQ) Rectal: Deferred Back: No CVA Tenderness Extremity: Non Tender, No Calf Tenderness Neurologic/Psychiatric: Alert, Oriented x3, No Motor/Sensory Deficits, Normal Mood/Affect Skin: Warm/Dry Lymphatic: No Adenopathy Results Lab Laboratory Tests 02/12/17 13:20: Hepatitis A IgM Antibody Non-Reactive, Hepatitis B Surface Antigen Non-Reactive , Hepatitis B Core IgM Antibody Non-Reactive, Hepatitis C Antibody Non-Reactive 02/12/17 16:10: Lactic Acid Level 1.33 02/13/17 04:05: White Blood Count 20.3H, Red Blood Count 4.68, Hemoglobin 14.0, Hematocrit 41, Mean Corpuscular Volume 87, Mean Corpuscular Hemoglobin 30, Mean Corpuscular Hemoglobin Concent 34, Red Cell Distribution Width 13.4, Platelet Count 268, Mean Platelet Volume 10.0, Neutrophils (%) (Auto) 89H, Lymphocytes (%) (Auto) 5L , Monocytes (%) (Auto) 6, Eosinophils (%) (Auto) 0, Basophils (%) (Auto) 0, Neutrophils # (Auto) 18.0H, Lymphocytes # (Auto) 1.0, Monocytes # (Auto) 1.2H, Eosinophils # (Auto) 0.0, Basophils # (Auto) 0.0, Total Bilirubin 2.4H, Direct Bilirubin 1.2H, Indirect Bilirubin 1.2, Aspartate Amino Transf (AST/SGOT) 14, Alanine Aminotransferase (ALT/SGPT) 23, Alkaline Phosphatase 56, Total Protein 7.2, Albumin 3.7 Assessment/Plan Assessment/Plan Assessment/Plan 26 yo M sepsis due to Acute sigmoid diverticulitis- IVF, morphine, zosyn/flagyl- adding meropenem- NPO for now- monitor WBC, fever, appetite may have ice chips. -ulcerative colitis? Abdominal pain due to above- plan as above elevated BP w/o diagnosis of HTN- monitor, may be due to pain- currently low normal. h/o recurrent UTIs- he has not had a work up- urology Dr. Castillo as an outpt referral for cystoscopy- possible fistula (colo-vesicular fistula)- hyperbilirubinemia- mild- will monitor- may be Gilbert disease. Dispo: IVF, pain management, NPO- monitor- will need outpt colonoscopy- and likely surgery to resect bowel. Outpt workup with urology for recurrent uti. Condition- guarded- will monitor clinic exam and labs - likely will have repeat CT abdomen tomorrow to reevaluate if fever continues and WBC continue to trend up. Problems: Clinical Quality Measures DVT/VTE Risk/Contraindication: Risk Factor Score Per Nursin RFS Level Per Nursing on Admit: 2=Moderate GILDARDO VALERA MD Feb 13, 2017 10:22
[2017-02-13] MEDS ORDERED: NS IV 500 ML 500 ML IV SCH (16:45)
[2017-02-13] MEDS: PANTOPRAZOLE 40 MG/10 ML (PROTONIX) VIAL IV SCH (17:08)
[2017-02-13] MEDS ORDERED: METOCLOPRAMIDE INJ 10 MG/2 ML (REGLAN) IVP PRN (18:00)
[2017-02-13] MEDS ORDERED: NS IV 1000 ML 1,000 ML ONE (18:14)
[2017-02-13] MEDS ORDERED: fentaNYL INJECTION 100 MCG/2 ML AMP IVP PRN (18:15)
[2017-02-13] MEDS ORDERED: NS IV 1000 ML 1,000 ML IV SCH (18:15)
[2017-02-13] MEDS: fentaNYL INJECTION 100 MCG/2 ML AMP IVP PRN ×2 (18:28→23:42)
[2017-02-13 19:10] LABS: KETONES,URINE 4+ (NEGATIVE); LEUKOCYTE ESTERASE ,URINE 1+ (NEGATIVE); NITRITE,URINE NEGATIVE (NEGATIVE); PH,URINE 6.5 (5-9); PROTEIN,URINE 2+ (NEGATIVE); UROBILINOGEN,URINE 8 MG/DL (NORMAL)
[2017-02-13 19:23] LABS: BILIRUBIN,URINE 1+ (NEGATIVE)
[2017-02-13 19:24] LABS: SQUAMOUS EPITHELIAL CELL,UR 0-2 /HPF; WBC,URINE 0-2 /HPF
[2017-02-14] VITALS (20 sets, daily range): BP systolic 98–133; BP diastolic 34–77
[2017-02-14] MEDS: LACTATED RINGERS 1,000 ML IV SCH ×4 (01:33→19:59)
[2017-02-14] MEDS: MEROPENEM 500 MG/NS 100 ML IVPB IV SCH ×10 (01:33→23:44)
[2017-02-14] MEDS: fentaNYL INJECTION 100 MCG/2 ML AMP IVP PRN ×16 (02:37→23:45)
[2017-02-14] MEDS: ACETAMINOPHEN 500 MG TAB (TYLENOL) PO PRN ×4 (03:17→19:58)
[2017-02-14 04:39] LABS: BASOPHILS % (AUTO) 0 % (0-10); EOSINOPHILS # (AUTO) 0.1 10^3/uL (0.0-0.3); EOSINOPHILS % (AUTO) 1 % (0-10); LYMPHOCYTES # (AUTO) 1.2 X 10^3 (1.0-4.0); LYMPHOCYTES % (AUTO) 6 % (12-44); MEAN CORPUSCULAR HEMOGLOBIN 29 PG (25-34); MEAN CORPUSCULAR HGB CONC 34 G/DL (32-36); MEAN CORPUSCULAR VOLUME 87 FL (80-99); MEAN PLATELET VOLUME 9.9 FL (7.4-10.4); MONOCYTES # (AUTO) 1.4 X 10^3 (0.0-1.0); MONOCYTES % (AUTO) 7 % (0-12); NEUTROPHILS % (AUTO) 86 % (42-75); PLATELET COUNT 277 10^3/uL (130-400); RED BLOOD COUNT 4.32 10^6/uL (4.35-5.85); RED CELL DISTRIBUTION WIDTH 13.1 % (10.0-14.5); WHITE BLOOD COUNT 19.8 10^3/uL (4.3-11.0)
[2017-02-14 05:05] LABS: ALANINE AMINOTRANSFERASE 16 U/L (0-55); ALBUMIN 3.2 G/DL (3.2-4.5); ANION GAP 11 MMOL/L (5-14); ASPARTATE AMINO TRANSFERASE 12 U/L (5-34); BILIRUBIN,TOTAL 1.4 MG/DL (0.1-1.0); BLOOD UREA NITROGEN 8 MG/DL (7-18); BUN/CREATININE RATIO 11; CALCIUM 8.6 MG/DL (8.5-10.1); CARBON DIOXIDE 24 MMOL/L (21-32); CHLORIDE 101 MMOL/L (98-107); CREATININE SERUM 0.75 MG/DL (0.60-1.30); GFR ESTIMATED > 60; GLUCOSE 104 MG/DL (70-105); POTASSIUM 3.3 MMOL/L (3.6-5.0); SODIUM 136 MMOL/L (135-145); TOTAL PROTEIN 6.5 G/DL (6.4-8.2)
[2017-02-14] MEDS: CATHETER FLUSH 10 ML SYR IV PRN (07:52)
[2017-02-14] MEDS: PANTOPRAZOLE 40 MG/10 ML (PROTONIX) VIAL IV SCH (07:52)
--- NOTE | 2017-02-14 08:18 | Progress Note (SOAP) ---
Subjective Subjective 26 yo M- admitted for abdominal pain, diverticutilitis- he did have fevers yesterday evening and overnight- he was given 1.5L IVF bolus- and apap. Pt also complaining of increased belching and GERD- started on PPI iv with improvement- Pt does not feel much worse with the fever. He does feel a little better with have a couple bowel movements- no issue urinating. Review of Systems General: No Chills, No Night Sweats, Fatigue, Malaise, Appetite, Other (fever) HEENT: Head Aches (occassional) Pulmonary: No Dyspnea, No Cough Cardiovascular: No: Chest Pain, Palpitations Gastrointestinal: Abdominal Pain (lower abdomen), No: Nausea, Vomiting Genitourinary: No Dysuria Musculoskeletal: back pain, No: neck pain Neurological: No: Numbness, Weakness Objective Exam Vital Signs Vital Signs Date Time Temp Pulse Resp B/P (MAP) Pulse Ox O2 Delivery O2 Flow Rate FiO2 02/14/17 04:17 99.8 96 18 124/58 93 Room Air 02/14/17 03:17 99.8 02/14/17 01:37 100.7 100 16 132/61 95 Room Air 02/14/17 00:00 100.8 101 20 126/63 94 Room Air 02/13/17 20:32 100.8 101 18 111/73 95 Room Air 02/13/17 19:48 101.8 101 20 111/74 95 Room Air 02/13/17 19:47 101.4 02/13/17 18:29 103.5 02/13/17 17:32 102.9 02/13/17 16:00 103.4 123 20 107/63 92 Room Air 02/13/17 12:00 100.0 114 16 133/88 96 Room Air I & O 02/14/17 07:00 Intake Total 3000 ml Output Total 1000 ml Balance 2000 ml General Appearance: Mild Distress Eyes: Bilateral Eye EOMI, Bilateral Eye PERRL HEENT: PERRL/EOMI Neck: Full Range of Motion, Non Tender Respiratory: Chest Non Tender, Lungs Clear, Normal Breath Sounds, No Accessory Muscle Use, No Respiratory Distress Cardiovascular: Regular Rate, Rhythm, No Edema Gastrointestinal: Normal Bowel Sounds, Tenderness (LLQ, RLLQ, low middle abdomen) Rectal: Deferred Back: No CVA Tenderness Extremity: Non Tender, No Calf Tenderness Neurologic/Psychiatric: Alert, Oriented x3, No Motor/Sensory Deficits, Normal Mood/Affect Skin: Warm/Dry Lymphatic: No Adenopathy Results Lab Laboratory Tests 02/13/17 17:05: Lactic Acid Level 1.02 02/13/17 18:30: Urine Color AMBERH, Urine Clarity SLIGHTLY CLOUDY, Urine pH 6.5, Urine Specific [place] 1.015L, Urine Protein 2+H, Urine Glucose (UA) NEGATIVE, Urine Ketones 4+ H, Urine Nitrite NEGATIVE, Urine Bilirubin 1+H, Urine Urobilinogen 8H, Urine Leukocyte Esterase 1+H, Urine RBC (Auto) 1+H, Urine RBC RARE, Urine WBC 0-2, Urine Squamous Epithelial Cells 0-2, Urine Crystals NONE, Urine Bacteria NEGATIVE, Urine Casts NONE, Urine Mucus SMALLH, Urine Culture Indicated NO 02/14/17 04:10: White Blood Count 19.8H, Red Blood Count 4.32L, Hemoglobin 12.7L, Hematocrit 38L , Mean Corpuscular Volume 87, Mean Corpuscular Hemoglobin 29, Mean Corpuscular Hemoglobin Concent 34, Red Cell Distribution Width 13.1, Platelet Count 277, Mean Platelet Volume 9.9, Neutrophils (%) (Auto) 86H, Lymphocytes (%) (Auto) 6L , Monocytes (%) (Auto) 7, Eosinophils (%) (Auto) 1, Basophils (%) (Auto) 0, Neutrophils # (Auto) 17.0H, Lymphocytes # (Auto) 1.2, Monocytes # (Auto) 1.4H, Eosinophils # (Auto) 0.1, Basophils # (Auto) 0.0, Sodium Level 136, Potassium Level 3.3L, Chloride Level 101, Carbon Dioxide Level 24, Anion Gap 11, Blood Urea Nitrogen 8, Creatinine 0.75, Estimat Glomerular Filtration Rate > 60, BUN/ Creatinine Ratio 11, Glucose Level 104, Calcium Level 8.6, Total Bilirubin 1.4H , Aspartate Amino Transf (AST/SGOT) 12, Alanine Aminotransferase (ALT/SGPT) 16, Alkaline Phosphatase 54, Total Protein 6.5, Albumin 3.2, Smear Scan YES Assessment/Plan Assessment/Plan Assessment/Plan 26 yo M sepsis due to Acute sigmoid diverticulitis- IVF, morphine, fentanyl, meropenem 02/13/17- NPO for now- monitor WBC, fever, appetite may have ice chips. -ulcerative colitis? -blood culture pending Abdominal pain due to above- plan as above elevated BP w/o diagnosis of HTN- monitor, may be due to pain- currently low normal. h/o recurrent UTIs- he has not had a work up- urology Dr. Castillo as an outpt referral for cystoscopy- possible fistula (colo-vesicular fistula)- hyperbilirubinemia- mild- will monitor- Dispo: IVF, pain management, NPO- monitor- Condition- guarded- will monitor clinic exam and labs - likely will have repeat CT abdomen to reevaluate if fever continues and WBC continue to trend up. -clinical exam has not changed much- minimal abdominal pain to palpation. will need outpt colonoscopy- and likely surgery to resect bowel. Outpt workup with urology for recurrent uti. Problems: Clinical Quality Measures DVT/VTE Risk/Contraindication: Risk Factor Score Per Nursin RFS Level Per Nursing on Admit: 2=Moderate GILDARDO VALERA MD Feb 14, 2017 08:18
--- NOTE | 2017-02-14 09:15 | Progress Note ---
Subjective Subjective/Events-last exam Patient rest in Chair by bedside. Even respirations. No distress. Alert and oriented x 3. c/o of pain to abdomen around the periumbilical area. Rates 4/10 with no movement. Patient reports recently having a bowel movement and passing gas. Objective Exam Vital Signs Date Time Temp Pulse Resp B/P (MAP) Pulse Ox O2 Delivery O2 Flow Rate FiO2 02/14/17 08:00 100.5 95 16 116/70 93 Room Air 02/14/17 04:17 99.8 96 18 124/58 93 Room Air 02/14/17 03:17 99.8 02/14/17 01:37 100.7 100 16 132/61 95 Room Air 02/14/17 00:00 100.8 101 20 126/63 94 Room Air 02/13/17 20:32 100.8 101 18 111/73 95 Room Air 02/13/17 19:48 101.8 101 20 111/74 95 Room Air 02/13/17 19:47 101.4 02/13/17 18:29 103.5 02/13/17 17:32 102.9 02/13/17 16:00 103.4 123 20 107/63 92 Room Air 02/13/17 12:00 100.0 114 16 133/88 96 Room Air I & O 02/14/17 07:00 Intake Total 3000 ml Output Total 1000 ml Balance 2000 ml Capillary Refill : Less Than 3 Seconds General Appearance: Mild Distress HEENT: PERRL/EOMI Neck: Full Range of Motion, Non Tender Respiratory: Chest Non Tender, No Accessory Muscle Use, No Respiratory Distress Cardiovascular: Regular Rate, Rhythm Peripheral Pulses: 4+ Carotid (R), 4+ Carotid (L), 4+ Radial Pulses (R), 4+ Radial Pulses (L) Gastrointestinal: soft, no organomegaly, no pulsatile mass, No guarding, No rebound, tenderness (minimal tenderness umbilical area. rate 4/10. dull in nature. ), hernia (small UH, questionable small RIH) Extremity: Non Tender, No Calf Tenderness Neurologic/Psychiatric: Alert, Oriented x3, No Motor/Sensory Deficits, Normal Mood/Affect Skin: Warm/Dry Lymphatic: No Adenopathy Results Lab Laboratory Tests Test 02/12/17 13:20 02/12/17 16:10 02/13/17 04:05 02/13/17 17:05 Range/Units Hepatitis A IgM Antibody Non-Reactive Non-Reactive Hepatitis B Surface Antigen Non-Reactive Non-Reactive Hepatitis B Core IgM Antibody Non-Reactive Non-Reactive Hepatitis C Antibody Non-Reactive Non-Reactive Lactic Acid Level 1.33 1.02 0.50-2.00 MMOL/L White Blood Count 20.3 H 4.3-11.0 10^3/uL Red Blood Count 4.68 4.35-5.85 10^6/uL Hemoglobin 14.0 13.3-17.7 G/DL Hematocrit 41 40-54 % Mean Corpuscular Volume 87 80-99 FL Mean Corpuscular Hemoglobin 30 25-34 PG Mean Corpuscular Hemoglobin Concent 34 32-36 G/DL Red Cell Distribution Width 13.4 10.0-14.5 % Platelet Count 268 130-400 10^3/uL Mean Platelet Volume 10.0 7.4-10.4 FL Neutrophils (%) (Auto) 89 H 42-75 % Lymphocytes (%) (Auto) 5 L 12-44 % Monocytes (%) (Auto) 6 0-12 % Eosinophils (%) (Auto) 0 0-10 % Basophils (%) (Auto) 0 0-10 % Neutrophils # (Auto) 18.0 H 1.8-7.8 X 10^3 Lymphocytes # (Auto) 1.0 1.0-4.0 X 10^3 Monocytes # (Auto) 1.2 H 0.0-1.0 X 10^3 Eosinophils # (Auto) 0.0 0.0-0.3 10^3/uL Basophils # (Auto) 0.0 0.0-0.1 10^3/uL Total Bilirubin 2.4 H 0.1-1.0 MG/DL Direct Bilirubin 1.2 H 0.0-0.3 MG/DL Indirect Bilirubin 1.2 MG/DL Aspartate Amino Transf (AST/SGOT) 14 5-34 U/L Alanine Aminotransferase (ALT/SGPT) 23 0-55 U/L Alkaline Phosphatase 56 40-136 U/L Total Protein 7.2 6.4-8.2 G/DL Albumin 3.7 3.2-4.5 G/DL Test 02/13/17 18:30 02/14/17 04:10 Range/Units Urine Color CATALINA H Urine Clarity SLIGHTLY CLOUDY Urine pH 6.5 5-9 Urine Specific [place] 1.015 L 1.016-1.022 Urine Protein 2+ H NEGATIVE Urine Glucose (UA) NEGATIVE NEGATIVE Urine Ketones 4+ H NEGATIVE Urine Nitrite NEGATIVE NEGATIVE Urine Bilirubin 1+ H NEGATIVE Urine Urobilinogen 8 H NORMAL MG/DL Urine Leukocyte Esterase 1+ H NEGATIVE Urine RBC (Auto) 1+ H NEGATIVE Urine RBC RARE /HPF Urine WBC 0-2 /HPF Urine Squamous Epithelial Cells 0-2 /HPF Urine Crystals NONE /LPF Urine Bacteria NEGATIVE /HPF Urine Casts NONE /LPF Urine Mucus SMALL H /LPF Urine Culture Indicated NO White Blood Count 19.8 H 4.3-11.0 10^3/uL Red Blood Count 4.32 L 4.35-5.85 10^6/uL Hemoglobin 12.7 L 13.3-17.7 G/DL Hematocrit 38 L 40-54 % Mean Corpuscular Volume 87 80-99 FL Mean Corpuscular Hemoglobin 29 25-34 PG Mean Corpuscular Hemoglobin Concent 34 32-36 G/DL Red Cell Distribution Width 13.1 10.0-14.5 % Platelet Count 277 130-400 10^3/uL Mean Platelet Volume 9.9 7.4-10.4 FL Neutrophils (%) (Auto) 86 H 42-75 % Lymphocytes (%) (Auto) 6 L 12-44 % Monocytes (%) (Auto) 7 0-12 % Eosinophils (%) (Auto) 1 0-10 % Basophils (%) (Auto) 0 0-10 % Neutrophils # (Auto) 17.0 H 1.8-7.8 X 10^3 Lymphocytes # (Auto) 1.2 1.0-4.0 X 10^3 Monocytes # (Auto) 1.4 H 0.0-1.0 X 10^3 Eosinophils # (Auto) 0.1 0.0-0.3 10^3/uL Basophils # (Auto) 0.0 0.0-0.1 10^3/uL Sodium Level 136 135-145 MMOL/L Potassium Level 3.3 L 3.6-5.0 MMOL/L Chloride Level 101 98-107 MMOL/L Carbon Dioxide Level 24 21-32 MMOL/L Anion Gap 11 5-14 MMOL/L Blood Urea Nitrogen 8 7-18 MG/DL Creatinine 0.75 0.60-1.30 MG/DL Estimat Glomerular Filtration Rate > 60 BUN/Creatinine Ratio 11 Glucose Level 104 70-105 MG/DL Calcium Level 8.6 8.5-10.1 MG/DL Total Bilirubin 1.4 H 0.1-1.0 MG/DL Aspartate Amino Transf (AST/SGOT) 12 5-34 U/L Alanine Aminotransferase (ALT/SGPT) 16 0-55 U/L Alkaline Phosphatase 54 40-136 U/L Total Protein 6.5 6.4-8.2 G/DL Albumin 3.2 3.2-4.5 G/DL Smear Scan YES Laboratory Tests 02/13/17 17:05: Lactic Acid Level 1.02 02/13/17 18:30: Urine Color AMBERH, Urine Clarity SLIGHTLY CLOUDY, Urine pH 6.5, Urine Specific [place] 1.015L, Urine Protein 2+H, Urine Glucose (UA) NEGATIVE, Urine Ketones 4+ H, Urine Nitrite NEGATIVE, Urine Bilirubin 1+H, Urine Urobilinogen 8H, Urine Leukocyte Esterase 1+H, Urine RBC (Auto) 1+H, Urine RBC RARE, Urine WBC 0-2, Urine Squamous Epithelial Cells 0-2, Urine Crystals NONE, Urine Bacteria NEGATIVE, Urine Casts NONE, Urine Mucus SMALLH, Urine Culture Indicated NO 02/14/17 04:10: White Blood Count 19.8H, Red Blood Count 4.32L, Hemoglobin 12.7L, Hematocrit 38L , Mean Corpuscular Volume 87, Mean Corpuscular Hemoglobin 29, Mean Corpuscular Hemoglobin Concent 34, Red Cell Distribution Width 13.1, Platelet Count 277, Mean Platelet Volume 9.9, Neutrophils (%) (Auto) 86H, Lymphocytes (%) (Auto) 6L , Monocytes (%) (Auto) 7, Eosinophils (%) (Auto) 1, Basophils (%) (Auto) 0, Neutrophils # (Auto) 17.0H, Lymphocytes # (Auto) 1.2, Monocytes # (Auto) 1.4H, Eosinophils # (Auto) 0.1, Basophils # (Auto) 0.0, Sodium Level 136, Potassium Level 3.3L, Chloride Level 101, Carbon Dioxide Level 24, Anion Gap 11, Blood Urea Nitrogen 8, Creatinine 0.75, Estimat Glomerular Filtration Rate > 60, BUN/ Creatinine Ratio 11, Glucose Level 104, Calcium Level 8.6, Total Bilirubin 1.4H , Aspartate Amino Transf (AST/SGOT) 12, Alanine Aminotransferase (ALT/SGPT) 16, Alkaline Phosphatase 54, Total Protein 6.5, Albumin 3.2, Smear Scan YES Assessment/Plan Assessment/Plan Assessment/Plan acute diverticulitis with 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 patient wbc is trending down slightly. Pt receiving Tylenol for fever. bilirubin is trending down. Meropenem will continue conservative management at this time CT scan of abdomen and pelvis with IV and Rectal contrast possible. Patient encouraged to do IS 10x Q1hr Carson- 02/14/17 Patient with fever overnight. Patient abdominal pain better. No nausea or vomiting. Passes some flatus and small bm. general laying in bed heart reg lungs nonlabored abdomen minimal tenderness llq no guarding or rebounding. ext nontender acute diverticultis with contained perforation and colovesicular fistula suspect abscess with fevers will repeat ct abd/pelv drain if necessary continue meropenem Clinical Quality Measures DVT/VTE Risk/Contraindication: Risk Factor Score Per Nursin RFS Level Per Nursing on Admit: 2=Moderate VITALIY TAYLOR APRN Feb 14, 2017 9:15 am CHHAYA WINTERS DO Feb 15, 2017 8:28 am
[2017-02-14] MEDS ORDERED: IOHEXOL 350 MG/ML 100 ML (OMNIPAQUE 350) VIAL IV ONE (10:00)
[2017-02-14] MEDS ORDERED: CATHETER FLUSH 10 ML SYR IV PRN (10:00)
[2017-02-14] MEDS ORDERED: NS 100 ML (IVPB) BAG IV ONE (10:00)
[2017-02-14] MEDS ORDERED: NS IV 1000 ML 1,000 ML IV SCH (10:00)
[2017-02-14] MEDS ORDERED: DIATRIZOATE MEGLUM/SODIUM 37% 120 ML (GASTROGRAFIN) PO ONE (10:00)
[2017-02-14] MEDS ORDERED: LIDOCAINE 1% INJ 20 ML (XYLOCAINE) VIAL ONE (11:23)
[2017-02-14] MEDS: ONDANSETRON 4 MG/2 ML (SDV) Z0FRAN IVP PRN ×2 (11:34→19:58)
[2017-02-14] MEDS ORDERED: MIDAZOLAM 2 MG/2 ML (VERSED) VIAL ONE (11:55)
[2017-02-14] MEDS: MIDAZOLAM 10 MG/2 ML (VERSED) VIAL IVP PRN ×3 (12:00→12:18)
[2017-02-14] MEDS ORDERED: LIDOCAINE 1% INJ 20 ML (XYLOCAINE) VIAL INJ ONE (12:15)
--- NOTE | 2017-02-14 12:44 | Pre-Op Note & Conscious Sedat ---
Pre-Operative Progress Note H&P Reviewed The H&P was reviewed, patient examined and no changes noted. Date H&P Reviewed: Feb 14, 2017 Time H&P Reviewed: 11:30 Pre-Op Diagnosis: abscesses Conscious Sedation Pre-Proced Time Reviewed: 11:40 ASA Class: 2 Airway Mallampati Classification: (la posta appropriate class) I. II. III, IV Lungs Heart ASA score ASA 1: a normal healthy patient ASA 2: a patient with a mild systemic disease (mid diabetes, controlled hypertension, obesity ASA 3: a patient with a severe systemic disease that limits activity (angina , COPD, prior Myocardial infarction) ASA 4: a patient with an incapacitating disease that is a constant threat to life (CHF, renal failure) ASA 5: a moribund patient not expected to survive 24 hrs. (ruptured aneurysm) ASA 6: a declared brain patient whose organs are being harvested. For emergent operations, add the letter E after the classification Grade 3 Sedation Plan: Analgesia Note The patient is an appropriate candidate to undergo the planned procedure, sedation, and anesthesia. The patient immediately re-assessed prior to indication. MANE CHADWICK MD Feb 14, 2017 12:43
--- NOTE | 2017-02-14 12:45 | Radiology Progress Note ---
Progress Note-Radiology Progress Note s/p drain placement x2. see full note under imaging. Pus obtained and sent for cultures. MANE CHADWICK MD Feb 14, 2017 12:45
--- NOTE | 2017-02-14 13:01 | Diagnostic Imaging Report ---
PROCEDURE: CT abdomen and pelvis with contrast. TECHNIQUE: Multiple contiguous axial images were obtained through the abdomen and pelvis after administration of intravenous contrast. INDICATION: Acute diverticulitis and colovesicular fistula. CONTRAST: 14 cc of rectal contrast was administered. 100 mL of Omnipaque-350 was also administered. COMPARISON: 02/11/2017. FINDINGS: There is bilateral lung base atelectasis. There is diffuse hepatic steatosis. No calcified gallstones. The spleen is mildly enlarged measuring 17 cm in length. The pancreas and adrenal glands appear unremarkable. The kidneys have symmetric enhancement and contrast excretion. The aorta is normal in caliber. No para-aortic significantly enlarged lymph nodes are seen. There is an interval significant worsening of the inflammation in the lower abdomen and pelvis. There is an abscess in the lower abdomen measuring 8 x 3.3 x 3.3 cm. This has an air-fluid level and significant surrounding inflammation with posterior deep superior extension near the root of the mesentery. Other fluid collections without internal air are seen measuring 3.5 x 2.7 cm in the anterior right side of the mid pelvis and another mid pelvic fluid collection measuring 6.6 x 4.7 cm. These have enhancing sotelo suggestive of abscesses. The inflamed thickened segments of the distal descending and proximal sigmoid colon are again noted with no evidence of active leakage of rectal contrast seen. The upper left side aspect of the urinary bladder is thickened with question of connection to the sigmoid colon. No intravesical air is seen at this time. IMPRESSION: 1. There is worsening of inflammation with abscess formation in the lower abdomen and in the anterior and posterior mid pelvis. Significant inflammation around the descending/sigmoid colon junction from diverticulitis is still present. 2. Thickening of the anterior left superior aspect of the urinary bladder without intravesical air seen at this time. A small colovesical fistula is still suspected. The findings were discussed with Dr. Byrd by Dr. White at time of dictation. Dictated by: Dictated on workstation # [id number]
--- NOTE | 2017-02-14 14:06 | Diagnostic Imaging Report ---
EXAMINATION: CT-guided drain placement. Abdomen. INDICATION: Diverticulitis complicated by the lower abdominal and pelvic abscesses. The patient's vital signs, cardiac rhythm, and pulse oximetry with observed throughout the procedure by qualified nursing personnel. Sedation/medications: Versed 1.5 mg and fentanyl 150 mcg with the total sedation time of one hour utilized. CONSENT: Informed consent was obtained from the patient. The risks, benefits, potential complications and alternatives were reviewed and all questions answered to the patient's satisfaction. FINDINGS: Pelvic and abdominal abscesses PROCEDURE: After maximal sterile barrier preparation and draping, 1% lidocaine was utilized for local anesthesia. With the patient in supine position, anterior approach was selected. A 19-gauge Yueh sheathed needle was introduced utilizing CT guidance into the lower abdominal abscess. CT images confirm appropriate positioning. After standard over a guidewire exchange technique and after serial dilatation, a 12 Guamanian drain is placed and distal loop formed in the collection. A 60 ml of purulent fluid is aspirated and sent to microbiology. The drainage catheter is connected to suction type draining bag. The patient tolerated the procedure well with no immediate complications. IMPRESSION: Successful CT-guided, 12 Guamanian, drain placement in lower abdominal abscess. Dictated by: Dictated on workstation # [id number]
--- NOTE | 2017-02-14 14:10 | Diagnostic Imaging Report ---
EXAMINATION: CT-guided aspiration pelvis. CT-guided drain placement. Pelvis. INDICATION: Diverticulitis complicated by the lower abdominal and pelvic abscesses. 2 separate the pelvic collections are seen. The patient's vital signs, cardiac rhythm, and pulse oximetry with observed throughout the procedure by qualified nursing personnel. Sedation/medications: Versed 1.5 mg and fentanyl 150 mcg with the total sedation time of one hour utilized. CONSENT: Informed consent was obtained from the patient. The risks, benefits, potential complications and alternatives were reviewed and all questions answered to the patient's satisfaction. FINDINGS: Pelvic and abdominal abscesses. 2 separate pelvic collections are seen. The abdominal collection. PROCEDURE: After maximal sterile barrier preparation and draping, 1% lidocaine was utilized for local anesthesia. With the patient in supine position, anterior approach was selected. A 19-gauge Yueh sheathed needle was introduced utilizing CT guidance into the anterior right the pelvic fluid collection. Aspiration is performed and the thin yellow serous fluid is obtained. Based on the appearance of serous noninfected fluid, a separate the drain is not inserted into this collection. Afterwards, 19-gauge Yueh sheathed needle was advanced into the deeper posterior central pelvic fluid collection. Initial aspiration obtained puss confirming diagnosis of abscess. CT images confirm appropriate positioning. After standard over a guidewire exchange technique and after serial dilatation, a 12 Albanian drain is placed and distal loop formed in the collection. A 40 ml of purulent fluid is aspirated and sent to microbiology. The drainage catheter is connected to suction type draining bag. The patient tolerated the procedure well with no immediate complications. IMPRESSION: Successful CT-guided, 12 Albanian, drain placement in deep pelvis abscess. The more superficial smaller right pelvic fluid collection anteriorly was aspirated demonstrating serous yellow fluid. A dedicated drain was not placed in this more superficial collection. Dictated by: Dictated on workstation # [id number]
[2017-02-14] MEDS: CATHETER FLUSH 10 ML SYR IV SCH (21:15)
[2017-02-14] MEDS: PROCHLORPERAZINE 10 MG TAB (COMPAZINE) PO PRN (22:44)
[2017-02-15] VITALS (7 sets, daily range): BP systolic 103–131; BP diastolic 57–77
[2017-02-15] MEDS: fentaNYL INJECTION 100 MCG/2 ML AMP IVP PRN ×12 (01:45→23:25)
[2017-02-15] MEDS: LACTATED RINGERS 1,000 ML IV SCH ×3 (03:34→17:20)
[2017-02-15] MEDS: PROCHLORPERAZINE 10 MG TAB (COMPAZINE) PO PRN ×3 (05:27→21:41)
[2017-02-15] MEDS: MEROPENEM 500 MG/NS 100 ML IVPB IV SCH ×8 (05:28→23:25)
--- NOTE | 2017-02-15 08:19 | Progress Note ---
Subjective Subjective/Events-last exam Patient is resting in the bed. Reports that the pain that he was feeling yesterday is diminished. His pain currently is from the drains put in by Dr. White to drain abscess from his abdomen. Patient is alert and oriented x 3. Objective Exam Vital Signs Date Time Temp Pulse Resp B/P (MAP) Pulse Ox O2 Delivery O2 Flow Rate FiO2 02/15/17 04:10 99.8 78 20 105/57 97 Room Air 02/15/17 00:10 98.5 88 20 103/66 96 Room Air 02/14/17 21:00 Room Air 02/14/17 19:50 101.0 97 18 110/63 94 Room Air 02/14/17 16:40 100.2 92 20 111/67 93 Room Air 02/14/17 15:40 100.7 88 20 102/65 94 Room Air 02/14/17 14:20 101.4 78 16 102/68 94 Room Air 02/14/17 13:50 101.8 78 16 110/70 95 02/14/17 13:35 101.0 78 18 106/61 96 Room Air 02/14/17 13:20 87 20 110/77 95 Room Air 02/14/17 13:05 73 18 98/53 94 Room Air 02/14/17 12:50 100.2 70 18 103/55 95 Room Air 02/14/17 12:25 91 18 128/68 96 Nasal Cannula 2.00 02/14/17 12:20 83 18 123/51 96 Nasal Cannula 2.00 02/14/17 12:15 72 18 108/34 96 Nasal Cannula 2.00 02/14/17 12:10 76 18 117/54 94 Nasal Cannula 2.00 02/14/17 12:03 76 18 132/53 94 Nasal Cannula 2.00 02/14/17 11:54 88 18 133/68 94 Nasal Cannula 2.00 02/14/17 11:20 98.0 89 16 117/57 95 Room Air 02/14/17 09:00 Room Air I & O 02/15/17 06:59 Intake Total 4200 ml Output Total 1755 ml Balance 2445 ml Capillary Refill : Less Than 3 Seconds General Appearance: Mild Distress HEENT: PERRL/EOMI Neck: Full Range of Motion, Non Tender Respiratory: Chest Non Tender, No Accessory Muscle Use, No Respiratory Distress Cardiovascular: Regular Rate, Rhythm Peripheral Pulses: 4+ Carotid (R), 4+ Carotid (L), 4+ Radial Pulses (R), 4+ Radial Pulses (L) Gastrointestinal: soft, no organomegaly, no pulsatile mass, No guarding, No rebound, tenderness (tenderness from drain incision ), hernia (small UH, questionable small RIH) Extremity: Non Tender, No Calf Tenderness Neurologic/Psychiatric: Alert, Oriented x3, No Motor/Sensory Deficits, Normal Mood/Affect Skin: Warm/Dry Lymphatic: No Adenopathy Results Lab Laboratory Tests Test 02/13/17 17:05 02/13/17 18:30 02/14/17 04:10 Range/Units Lactic Acid Level 1.02 0.50-2.00 MMOL/L Urine Color CATALINA H Urine Clarity SLIGHTLY CLOUDY Urine pH 6.5 5-9 Urine Specific [place] 1.015 L 1.016-1.022 Urine Protein 2+ H NEGATIVE Urine Glucose (UA) NEGATIVE NEGATIVE Urine Ketones 4+ H NEGATIVE Urine Nitrite NEGATIVE NEGATIVE Urine Bilirubin 1+ H NEGATIVE Urine Urobilinogen 8 H NORMAL MG/DL Urine Leukocyte Esterase 1+ H NEGATIVE Urine RBC (Auto) 1+ H NEGATIVE Urine RBC RARE /HPF Urine WBC 0-2 /HPF Urine Squamous Epithelial Cells 0-2 /HPF Urine Crystals NONE /LPF Urine Bacteria NEGATIVE /HPF Urine Casts NONE /LPF Urine Mucus SMALL H /LPF Urine Culture Indicated NO White Blood Count 19.8 H 4.3-11.0 10^3/uL Red Blood Count 4.32 L 4.35-5.85 10^6/uL Hemoglobin 12.7 L 13.3-17.7 G/DL Hematocrit 38 L 40-54 % Mean Corpuscular Volume 87 80-99 FL Mean Corpuscular Hemoglobin 29 25-34 PG Mean Corpuscular Hemoglobin Concent 34 32-36 G/DL Red Cell Distribution Width 13.1 10.0-14.5 % Platelet Count 277 130-400 10^3/uL Mean Platelet Volume 9.9 7.4-10.4 FL Neutrophils (%) (Auto) 86 H 42-75 % Lymphocytes (%) (Auto) 6 L 12-44 % Monocytes (%) (Auto) 7 0-12 % Eosinophils (%) (Auto) 1 0-10 % Basophils (%) (Auto) 0 0-10 % Neutrophils # (Auto) 17.0 H 1.8-7.8 X 10^3 Lymphocytes # (Auto) 1.2 1.0-4.0 X 10^3 Monocytes # (Auto) 1.4 H 0.0-1.0 X 10^3 Eosinophils # (Auto) 0.1 0.0-0.3 10^3/uL Basophils # (Auto) 0.0 0.0-0.1 10^3/uL Sodium Level 136 135-145 MMOL/L Potassium Level 3.3 L 3.6-5.0 MMOL/L Chloride Level 101 98-107 MMOL/L Carbon Dioxide Level 24 21-32 MMOL/L Anion Gap 11 5-14 MMOL/L Blood Urea Nitrogen 8 7-18 MG/DL Creatinine 0.75 0.60-1.30 MG/DL Estimat Glomerular Filtration Rate > 60 BUN/Creatinine Ratio 11 Glucose Level 104 70-105 MG/DL Calcium Level 8.6 8.5-10.1 MG/DL Total Bilirubin 1.4 H 0.1-1.0 MG/DL Aspartate Amino Transf (AST/SGOT) 12 5-34 U/L Alanine Aminotransferase (ALT/SGPT) 16 0-55 U/L Alkaline Phosphatase 54 40-136 U/L Total Protein 6.5 6.4-8.2 G/DL Albumin 3.2 3.2-4.5 G/DL Smear Scan YES Microbiology 02/13/17 Blood Culture - Preliminary, Resulted No growth 02/14/17 Gram Stain - Final, Resulted 02/14/17 Anaerobic Culture, Resulted Pending 02/14/17 Surgical Culture - Preliminary, Resulted Escherichia Coli Assessment/Plan Assessment/Plan Assessment/Plan acute diverticulitis with colovesicular fistula. Pelvic Abscess with S/P Drainage CT Scan of the abdomen and pelvis with IV and Rectal contrast. The impression reported that There was a worsening of inflammation with abscess formation in the lower abdomen and in the anterior and posterior mid pelvis. Significant inflammation around the descending/sigmoid colon junction from diverticulitis is still present.There was an abscess in the lower abdomen measuring 8 x 3.3 x 3.3 cm. This has an air-fluid level and significant surrounding inflammation with posterior deep superior extension near the root of the mesentery. Other fluid collections without internal air are seen measuring 3.5 x 2.7 cm in the anterior right side of the mid pelvis and another mid pelvic fluid collection measuring 6.6 x 4.7 cm. These have enhancing sotelo suggestive of abscesses. accessed the abscess with a 2 12French drain is placed and distal loop formed in the collection. 100ml of abscess collection was sent for culture. Patient encouraged to do IS 10x Q1hr. Medical Management. We will continue to monitor patient. Carson- Patient feeling better. WBC down. Passing flatus and bm. Patient had drains placed yesterday into abscess. pain rates around a 2-4/10 general no acute distress heart reg lungs nonlabored abdomen soft, no significant tenderness. 2 drains placed ext nontender assessment as above continue Meropenem npo conservative management Clinical Quality Measures DVT/VTE Risk/Contraindication: Risk Factor Score Per Nursin RFS Level Per Nursing on Admit: 2=Moderate VITALIY TAYLOR APRN Feb 15, 2017 08:19 CHHAYA WINTERS DO Feb 15, 2017 11:19
[2017-02-15 08:51] LABS: BASOPHILS % (AUTO) 0 % (0-10); EOSINOPHILS # (AUTO) 0.3 10^3/uL (0.0-0.3); EOSINOPHILS % (AUTO) 2 % (0-10); LYMPHOCYTES # (AUTO) 1.1 X 10^3 (1.0-4.0); LYMPHOCYTES % (AUTO) 8 % (12-44); MEAN CORPUSCULAR HEMOGLOBIN 29 PG (25-34); MEAN CORPUSCULAR HGB CONC 34 G/DL (32-36); MEAN CORPUSCULAR VOLUME 88 FL (80-99); MEAN PLATELET VOLUME 9.4 FL (7.4-10.4); MONOCYTES % (AUTO) 8 % (0-12); NEUTROPHILS # (AUTO) 11.1 X 10^3 (1.8-7.8); NEUTROPHILS % (AUTO) 82 % (42-75); PLATELET COUNT 313 10^3/uL (130-400); RED BLOOD COUNT 4.15 10^6/uL (4.35-5.85); RED CELL DISTRIBUTION WIDTH 13.3 % (10.0-14.5); WHITE BLOOD COUNT 13.5 10^3/uL (4.3-11.0)
[2017-02-15] MEDS: CATHETER FLUSH 10 ML SYR IV PRN (09:02)
[2017-02-15] MEDS: PANTOPRAZOLE 40 MG/10 ML (PROTONIX) VIAL IV SCH (09:02)
[2017-02-15] MEDS: CATHETER FLUSH 10 ML SYR IV SCH ×2 (09:02→21:41)
[2017-02-15] MEDS: POTASSIUM CL 10MEQ/50ML IVPB 50 ML IV SCH ×6 (09:02→16:06)
[2017-02-15 09:15] LABS: ALANINE AMINOTRANSFERASE 14 U/L (0-55); ALBUMIN 3.1 G/DL (3.2-4.5); ANION GAP 12 MMOL/L (5-14); ASPARTATE AMINO TRANSFERASE 15 U/L (5-34); BILIRUBIN,TOTAL 0.9 MG/DL (0.1-1.0); BLOOD UREA NITROGEN 7 MG/DL (7-18); BUN/CREATININE RATIO 10; CALCIUM 8.2 MG/DL (8.5-10.1); CARBON DIOXIDE 25 MMOL/L (21-32); CHLORIDE 100 MMOL/L (98-107); CREATININE SERUM 0.69 MG/DL (0.60-1.30); GFR ESTIMATED > 60; GLUCOSE 89 MG/DL (70-105); MAGNESIUM 1.7 MG/DL (1.8-2.4); SODIUM 137 MMOL/L (135-145); TOTAL PROTEIN 6.4 G/DL (6.4-8.2)
[2017-02-15 09:32] LABS: BAND NEUTROPHILS 0 %; BASOPHILS % (MANUAL) 0 %; EOSINOPHILS % (MANUAL) 2 %; LYMPHOCYTES % (MANUAL) 5 %; NEUTROPHILS % (MANUAL) 89 %
[2017-02-15] MEDS ORDERED: fentaNYL PCA 300 MCG/30 ML VIAL IV PRN (09:45)
[2017-02-15] MEDS ORDERED: MAGNESIUM 1 GM/100 ML IVPB 100 ML IV NR (09:45)
--- NOTE | 2017-02-15 11:59 | Progress Note (SOAP) ---
Subjective Subjective 26 yo M- admitted for abdominal pain, diverticutilitis- Fevers continued- CT repeated with abscessed noted- radiology placed 2 drains with purulent drainage noted. Pain continued overnight- needing fentanyl q1hr. Denies nausea/vomiting. Review of Systems General: No Chills, No Night Sweats, Fatigue, Malaise, Appetite, Other (fever) HEENT: Head Aches (occassional) Pulmonary: No Dyspnea, No Cough Cardiovascular: No: Chest Pain, Palpitations Gastrointestinal: Abdominal Pain (lower abdomen), No: Nausea, Vomiting Genitourinary: No Dysuria Musculoskeletal: back pain, No: neck pain Neurological: No: Numbness, Weakness Objective Exam Vital Signs Vital Sign - Last 12Hours 02/11/17 02/11/17 02/14/17 14:23 19:55 11:54 Temp 98.3 Pulse 100 Resp 18 B/P (MAP) 146/102 Pulse Ox 97 O2 Delivery Room Air O2 Flow Rate 2.00 Capillary Refill : Less Than 3 Seconds General Appearance: Mild Distress Eyes: Bilateral Eye EOMI, Bilateral Eye PERRL HEENT: PERRL/EOMI Neck: Full Range of Motion, Non Tender Respiratory: Chest Non Tender, No Accessory Muscle Use, No Respiratory Distress Cardiovascular: Regular Rate, Rhythm Gastrointestinal: Normal Bowel Sounds, Soft, Tenderness (LLQ, RLLQ, low middle abdomen), Other (2 drains noted draining purulent- lower abdomen.) Rectal: Deferred Back: No CVA Tenderness Extremity: Non Tender, No Calf Tenderness Neurologic/Psychiatric: Alert, Oriented x3, No Motor/Sensory Deficits, Normal Mood/Affect Skin: Warm/Dry Lymphatic: No Adenopathy Results Lab Laboratory Tests 02/15/17 08:24: White Blood Count 13.5H, Red Blood Count 4.15L, Hemoglobin 12.2L, Hematocrit 36L , Mean Corpuscular Volume 88, Mean Corpuscular Hemoglobin 29, Mean Corpuscular Hemoglobin Concent 34, Red Cell Distribution Width 13.3, Platelet Count 313, Mean Platelet Volume 9.4, Neutrophils (%) (Auto) 82H, Lymphocytes (%) (Auto) 8L , Monocytes (%) (Auto) 8, Eosinophils (%) (Auto) 2, Basophils (%) (Auto) 0, Neutrophils # (Auto) 11.1H, Lymphocytes # (Auto) 1.1, Monocytes # (Auto) 1.0, Eosinophils # (Auto) 0.3, Basophils # (Auto) 0.0, Neutrophils % (Manual) 89, Lymphocytes % (Manual) 5, Monocytes % (Manual) 4, Eosinophils % (Manual) 2, Basophils % (Manual) 0, Band Neutrophils 0, Blood Morphology Comment NORMAL, Sodium Level 137, Potassium Level 3.0L, Chloride Level 100, Carbon Dioxide Level 25, Anion Gap 12, Blood Urea Nitrogen 7, Creatinine 0.69, Estimat Glomerular Filtration Rate > 60, BUN/Creatinine Ratio 10, Glucose Level 89, Calcium Level 8.2L, Magnesium Level 1.7L, Total Bilirubin 0.9, Aspartate Amino Transf (AST/SGOT) 15, Alanine Aminotransferase (ALT/SGPT) 14, Alkaline Phosphatase 55, Total Protein 6.4, Albumin 3.1L, Smear Scan NO Microbiology 02/13/17 Blood Culture - Preliminary, Resulted No growth 02/14/17 Gram Stain - Final, Resulted 02/14/17 Anaerobic Culture, Resulted Pending 02/14/17 Surgical Culture - Preliminary, Resulted Escherichia Coli Assessment/Plan Assessment/Plan Assessment/Plan 26 yo M sepsis due to Acute sigmoid diverticulitis- IVF, fentanyl, meropenem 02/13/17 - NPO for now- monitor WBC, fever, appetite may have ice chips. -ulcerative colitis vs Crohns? 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 Abdominal abscesses- culture growing e.coli elevated BP w/o diagnosis of HTN- monitor, may be due to pain- currently normal. h/o recurrent UTIs- he has not had a work up- urology Dr. 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 Outpt workup with urology for recurrent uti. continue meropenem- monitor cultures- abscess growing E.coli monitor pain. Continue conservative management. Surgery -Dr. Byrd covering. Problems: Clinical Quality Measures DVT/VTE Risk/Contraindication: Risk Factor Score Per Nursin RFS Level Per Nursing on Admit: 2=Moderate GILDARDO VALERA MD Feb 15, 2017 11:59
[2017-02-15] MEDS ORDERED: MAGNESIUM 1 GM/100 ML IVPB 100 ML IV SCH (13:30)
[2017-02-15] MEDS ORDERED: MAGNESIUM 1 GM/100 ML IVPB 100 ML IV ONE (14:30)
[2017-02-16] MEDS: fentaNYL INJECTION 100 MCG/2 ML AMP IVP PRN ×11 (01:22→22:32)
[2017-02-16] MEDS: LACTATED RINGERS 1,000 ML IV SCH ×4 (02:15→21:57)
[2017-02-16 04:04] VITALS: BP 103/69
[2017-02-16 04:30] LABS: BASOPHILS # (AUTO) 0.1 10^3/uL (0.0-0.1); BASOPHILS % (AUTO) 1 % (0-10); EOSINOPHILS # (AUTO) 0.3 10^3/uL (0.0-0.3); EOSINOPHILS % (AUTO) 2 % (0-10); LYMPHOCYTES # (AUTO) 1.7 X 10^3 (1.0-4.0); LYMPHOCYTES % (AUTO) 14 % (12-44); MEAN CORPUSCULAR HEMOGLOBIN 30 PG (25-34); MEAN CORPUSCULAR HGB CONC 34 G/DL (32-36); MEAN CORPUSCULAR VOLUME 88 FL (80-99); MEAN PLATELET VOLUME 9.3 FL (7.4-10.4); MONOCYTES # (AUTO) 1.1 X 10^3 (0.0-1.0); MONOCYTES % (AUTO) 9 % (0-12); NEUTROPHILS # (AUTO) 9.2 X 10^3 (1.8-7.8); NEUTROPHILS % (AUTO) 75 % (42-75); PLATELET COUNT 339 10^3/uL (130-400); RED CELL DISTRIBUTION WIDTH 13.2 % (10.0-14.5); WHITE BLOOD COUNT 12.3 10^3/uL (4.3-11.0)
[2017-02-16 04:55] LABS: ALANINE AMINOTRANSFERASE 14 U/L (0-55); ANION GAP 12 MMOL/L (5-14); ASPARTATE AMINO TRANSFERASE 19 U/L (5-34); BILIRUBIN,TOTAL 0.8 MG/DL (0.1-1.0); BLOOD UREA NITROGEN 8 MG/DL (7-18); BUN/CREATININE RATIO 11; CALCIUM 8.2 MG/DL (8.5-10.1); CARBON DIOXIDE 24 MMOL/L (21-32); CHLORIDE 102 MMOL/L (98-107); CREATININE SERUM 0.72 MG/DL (0.60-1.30); GFR ESTIMATED > 60; GLUCOSE 86 MG/DL (70-105); MAGNESIUM 2.2 MG/DL (1.8-2.4); POTASSIUM 3.2 MMOL/L (3.6-5.0); SODIUM 138 MMOL/L (135-145); TOTAL PROTEIN 6.2 G/DL (6.4-8.2)
[2017-02-16] MEDS: MEROPENEM 500 MG/NS 100 ML IVPB IV SCH ×8 (05:23→23:39)
[2017-02-16] MEDS: PROCHLORPERAZINE 10 MG TAB (COMPAZINE) PO PRN ×3 (05:24→22:32)
[2017-02-16 07:35] VITALS: BP 120/64
--- NOTE | 2017-02-16 09:16 | Progress Note ---
Subjective Subjective/Events-last exam continues to feel better. Pain improving. Patient passing flatus and bm. wbc trending down. urine output improved. Objective Exam Vital Signs Date Time Temp Pulse Resp B/P (MAP) Pulse Ox O2 Delivery O2 Flow Rate FiO2 02/16/17 07:35 99.2 82 16 120/64 94 Room Air 02/16/17 04:04 100.1 89 16 103/69 97 Room Air 02/15/17 23:59 100.8 87 20 118/77 95 Room Air 02/15/17 21:40 Room Air 02/15/17 20:40 98.9 87 18 115/74 95 Room Air 02/15/17 16:21 99.8 93 18 131/66 96 Room Air 02/15/17 14:37 100.5 02/15/17 12:30 100.8 87 19 115/74 93 Room Air 02/15/17 10:17 16 02/15/17 10:05 92 2.00 I & O 02/16/17 07:00 Intake Total 2500 ml Output Total 2983 ml Balance -483 ml Capillary Refill : Less Than 3 Seconds General Appearance: No Apparent Distress HEENT: PERRL/EOMI Neck: Full Range of Motion, Non Tender Respiratory: Chest Non Tender, No Accessory Muscle Use, No Respiratory Distress Cardiovascular: Regular Rate, Rhythm Peripheral Pulses: 4+ Carotid (R), 4+ Carotid (L), 4+ Radial Pulses (R), 4+ Radial Pulses (L) Gastrointestinal: soft, no organomegaly, no pulsatile mass, No guarding, No rebound, tenderness (at drains, minimal tenderness otherwise.), hernia (small UH , questionable small RIH) Extremity: Non Tender, No Calf Tenderness Neurologic/Psychiatric: Alert, Oriented x3, No Motor/Sensory Deficits, Normal Mood/Affect Skin: Warm/Dry Lymphatic: No Adenopathy Results Lab Laboratory Tests 02/16/17 03:51: White Blood Count 12.3H, Red Blood Count 4.10L, Hemoglobin 12.1L, Hematocrit 36L , Mean Corpuscular Volume 88, Mean Corpuscular Hemoglobin 30, Mean Corpuscular Hemoglobin Concent 34, Red Cell Distribution Width 13.2, Platelet Count 339, Mean Platelet Volume 9.3, Neutrophils (%) (Auto) 75, Lymphocytes (%) (Auto) 14, Monocytes (%) (Auto) 9, Eosinophils (%) (Auto) 2, Basophils (%) (Auto) 1, Neutrophils # (Auto) 9.2H, Lymphocytes # (Auto) 1.7, Monocytes # (Auto) 1.1H, Eosinophils # (Auto) 0.3, Basophils # (Auto) 0.1, Sodium Level 138, Potassium Level 3.2L, Chloride Level 102, Carbon Dioxide Level 24, Anion Gap 12, Blood Urea Nitrogen 8, Creatinine 0.72, Estimat Glomerular Filtration Rate > 60, BUN/ Creatinine Ratio 11, Glucose Level 86, Calcium Level 8.2L, Magnesium Level 2.2, Total Bilirubin 0.8, Aspartate Amino Transf (AST/SGOT) 19, Alanine Aminotransferase (ALT/SGPT) 14, Alkaline Phosphatase 54, Total Protein 6.2L, Albumin 3.0L Microbiology 02/13/17 Blood Culture - Preliminary, Resulted No growth 02/14/17 Gram Stain - Final, Resulted 02/14/17 Anaerobic Culture, Resulted Pending 02/14/17 Surgical Culture - Preliminary, Resulted Escherichia Coli Assessment/Plan Assessment/Plan Assessment/Plan acute diverticulitis with contained perforation, colovesicular fistula pelvic abscess s/p IR drain placement patient feeling better and wbc trending down. cultures sensitive to Meropenem continue may have sips of clears continue conservative management Clinical Quality Measures DVT/VTE Risk/Contraindication: Risk Factor Score Per Nursin RFS Level Per Nursing on Admit: 2=Moderate CHHAYA WINTERS DO Feb 16, 2017 09:16
[2017-02-16] MEDS: PANTOPRAZOLE 40 MG/10 ML (PROTONIX) VIAL IV SCH (09:46)
[2017-02-16] MEDS: CATHETER FLUSH 10 ML SYR IV SCH ×2 (09:47→21:58)
--- NOTE | 2017-02-16 10:53 | Progress Note (SOAP) ---
Subjective Subjective/Events-last exam Fwup acute diverticulitis with perforation and abdominal abscess. Abdominal pain improving. Passing flatus. Objective Exam Vital Signs Date Time Temp Pulse Resp B/P (MAP) Pulse Ox O2 Delivery O2 Flow Rate FiO2 02/16/17 07:35 99.2 82 16 120/64 94 Room Air 02/16/17 04:04 100.1 89 16 103/69 97 Room Air 02/15/17 23:59 100.8 87 20 118/77 95 Room Air 02/15/17 21:40 Room Air 02/15/17 20:40 98.9 87 18 115/74 95 Room Air 02/15/17 16:21 99.8 93 18 131/66 96 Room Air 02/15/17 14:37 100.5 02/15/17 12:30 100.8 87 19 115/74 93 Room Air I & O 02/16/17 07:00 Intake Total 2500 ml Output Total 2983 ml Balance -483 ml Capillary Refill : Less Than 3 Seconds General Appearance: No Apparent Distress Neck: Supple Respiratory: Lungs Clear Cardiovascular: Regular Rate, Rhythm Gastrointestinal: normal bowel sounds, non tender, soft, other (bilateral drains in place) Extremity: Non Tender, No Calf Tenderness, No Pedal Edema Neurologic/Psychiatric: Alert, Oriented x3 Results Lab Laboratory Tests 02/16/17 03:51: White Blood Count 12.3H, Red Blood Count 4.10L, Hemoglobin 12.1L, Hematocrit 36L , Mean Corpuscular Volume 88, Mean Corpuscular Hemoglobin 30, Mean Corpuscular Hemoglobin Concent 34, Red Cell Distribution Width 13.2, Platelet Count 339, Mean Platelet Volume 9.3, Neutrophils (%) (Auto) 75, Lymphocytes (%) (Auto) 14, Monocytes (%) (Auto) 9, Eosinophils (%) (Auto) 2, Basophils (%) (Auto) 1, Neutrophils # (Auto) 9.2H, Lymphocytes # (Auto) 1.7, Monocytes # (Auto) 1.1H, Eosinophils # (Auto) 0.3, Basophils # (Auto) 0.1, Sodium Level 138, Potassium Level 3.2L, Chloride Level 102, Carbon Dioxide Level 24, Anion Gap 12, Blood Urea Nitrogen 8, Creatinine 0.72, Estimat Glomerular Filtration Rate > 60, BUN/ Creatinine Ratio 11, Glucose Level 86, Calcium Level 8.2L, Magnesium Level 2.2, Total Bilirubin 0.8, Aspartate Amino Transf (AST/SGOT) 19, Alanine Aminotransferase (ALT/SGPT) 14, Alkaline Phosphatase 54, Total Protein 6.2L, Albumin 3.0L Microbiology 02/13/17 Blood Culture - Preliminary, Resulted No growth 02/14/17 Gram Stain - Final, Resulted 02/14/17 Anaerobic Culture, Resulted Pending 02/14/17 Surgical Culture - Preliminary, Resulted Escherichia Coli Assessment/Plan Assessment/Plan Assess & Plan/Chief Complaint 1. Acute Diverticulitis with abdominal abscess and drains in place--continue abx, WBC count trending down, slowly advance diet per surgery Clinical Quality Measures DVT/VTE Risk/Contraindication: Risk Factor Score Per Nursin RFS Level Per Nursing on Admit: 2=Moderate DONAL ETIENNE DO Feb 16, 2017 10:53 am
[2017-02-16 12:00] VITALS: BP 132/72
[2017-02-16] MEDS: POTASSIUM CL 10MEQ/50ML IVPB 50 ML IV SCH ×4 (12:58→16:34)
[2017-02-16 16:05] VITALS: BP 117/70
[2017-02-16 20:00] VITALS: BP 121/68
[2017-02-17 00:11] VITALS: BP 131/69
[2017-02-17] MEDS: fentaNYL INJECTION 100 MCG/2 ML AMP IVP PRN ×7 (01:09→23:29)
[2017-02-17 04:00] VITALS: BP 110/67
[2017-02-17] MEDS: MEROPENEM 500 MG/NS 100 ML IVPB IV SCH ×8 (05:00→23:30)
[2017-02-17] MEDS: LACTATED RINGERS 1,000 ML IV SCH ×4 (06:40→22:33)
[2017-02-17 08:00] VITALS: BP 112/61
[2017-02-17] MEDS: PANTOPRAZOLE 40 MG/10 ML (PROTONIX) VIAL IV SCH (08:49)
[2017-02-17] MEDS: PROCHLORPERAZINE 10 MG TAB (COMPAZINE) PO PRN ×2 (08:49→18:21)
[2017-02-17] MEDS: CATHETER FLUSH 10 ML SYR IV SCH ×2 (08:50→22:33)
[2017-02-17 09:03] LABS: BASOPHILS # (AUTO) 0.3 10^3/uL (0.0-0.1); BASOPHILS % (AUTO) 3 % (0-10); EOSINOPHILS # (AUTO) 0.3 10^3/uL (0.0-0.3); EOSINOPHILS % (AUTO) 2 % (0-10); LYMPHOCYTES # (AUTO) 1.9 X 10^3 (1.0-4.0); LYMPHOCYTES % (AUTO) 16 % (12-44); MEAN CORPUSCULAR HEMOGLOBIN 30 PG (25-34); MEAN CORPUSCULAR HGB CONC 34 G/DL (32-36); MEAN CORPUSCULAR VOLUME 87 FL (80-99); MEAN PLATELET VOLUME 8.9 FL (7.4-10.4); MONOCYTES # (AUTO) 1.1 X 10^3 (0.0-1.0); MONOCYTES % (AUTO) 9 % (0-12); NEUTROPHILS # (AUTO) 8.3 X 10^3 (1.8-7.8); NEUTROPHILS % (AUTO) 70 % (42-75); PLATELET COUNT 365 10^3/uL (130-400); RED BLOOD COUNT 4.13 10^6/uL (4.35-5.85); RED CELL DISTRIBUTION WIDTH 13.3 % (10.0-14.5); WHITE BLOOD COUNT 11.8 10^3/uL (4.3-11.0)
[2017-02-17 09:14] LABS: ANION GAP 10 MMOL/L (5-14); BLOOD UREA NITROGEN 6 MG/DL (7-18); BUN/CREATININE RATIO 9; CALCIUM 8.1 MG/DL (8.5-10.1); CARBON DIOXIDE 24 MMOL/L (21-32); CHLORIDE 104 MMOL/L (98-107); CREATININE SERUM 0.66 MG/DL (0.60-1.30); GFR ESTIMATED > 60; GLUCOSE 95 MG/DL (70-105); POTASSIUM 3.2 MMOL/L (3.6-5.0); SODIUM 138 MMOL/L (135-145)
--- NOTE | 2017-02-17 10:31 | Progress Note (SOAP) ---
Subjective Subjective/Events-last exam Fwup acute diverticulitis with perforation and abdominal abscess. Denies pain. Tolerated clear liquids. Passing flatus and small amount of stool. Objective Exam Vital Signs Date Time Temp Pulse Resp B/P (MAP) Pulse Ox O2 Delivery O2 Flow Rate FiO2 02/17/17 08:00 98.5 70 20 112/61 93 Room Air 02/17/17 04:00 97.0 70 19 110/67 94 Room Air 02/17/17 00:11 98.2 81 19 131/69 97 Room Air 02/16/17 21:50 Room Air 02/16/17 20:00 99.1 80 18 121/68 94 Room Air 02/16/17 16:05 96.4 83 20 117/70 96 Room Air 02/16/17 12:00 98.8 89 20 132/72 94 Room Air I & O 02/17/17 07:00 Intake Total 3040 ml Output Total 4410 ml Balance -1370 ml Capillary Refill : Less Than 3 Seconds General Appearance: No Apparent Distress Respiratory: Lungs Clear Cardiovascular: Regular Rate, Rhythm Gastrointestinal: normal bowel sounds, non tender, soft, other (drains in place in bilateral lower quadrants) Extremity: Non Tender, No Calf Tenderness Neurologic/Psychiatric: Alert, Oriented x3 Results Lab Laboratory Tests 02/17/17 08:52: White Blood Count 11.8H, Red Blood Count 4.13L, Hemoglobin 12.3L, Hematocrit 36L , Mean Corpuscular Volume 87, Mean Corpuscular Hemoglobin 30, Mean Corpuscular Hemoglobin Concent 34, Red Cell Distribution Width 13.3, Platelet Count 365, Mean Platelet Volume 8.9, Neutrophils (%) (Auto) 70, Lymphocytes (%) (Auto) 16, Monocytes (%) (Auto) 9, Eosinophils (%) (Auto) 2, Basophils (%) (Auto) 3, Neutrophils # (Auto) 8.3H, Lymphocytes # (Auto) 1.9, Monocytes # (Auto) 1.1H, Eosinophils # (Auto) 0.3, Basophils # (Auto) 0.3H, Sodium Level 138, Potassium Level 3.2L, Chloride Level 104, Carbon Dioxide Level 24, Anion Gap 10, Blood Urea Nitrogen 6L, Creatinine 0.66, Estimat Glomerular Filtration Rate > 60, BUN/ Creatinine Ratio 9, Glucose Level 95, Calcium Level 8.1L Microbiology 02/13/17 Blood Culture - Preliminary, Resulted No growth 02/14/17 Gram Stain - Final, Resulted 02/14/17 Anaerobic Culture, Resulted Pending 02/14/17 Surgical Culture - Preliminary, Resulted Escherichia Coli Assessment/Plan Assessment/Plan Assess & Plan/Chief Complaint 1. Acute Diverticulitis with abdominal abscess and drains in place--continue abx, WBC count trending down, slowly advance diet per surgery Clinical Quality Measures DVT/VTE Risk/Contraindication: Risk Factor Score Per Nursin RFS Level Per Nursing on Admit: 2=Moderate DONAL ETIENNE DO Feb 17, 2017 10:31 am
--- NOTE | 2017-02-17 10:37 | Progress Note ---
Subjective Subjective/Events-last exam Continues to feel better. Tolerating sips of clears. WBC continues to go down. Passing flatus and small bm. Denies n/v fever sweats chills shortness of breath or chest pain. Objective Exam Vital Signs Date Time Temp Pulse Resp B/P (MAP) Pulse Ox O2 Delivery O2 Flow Rate FiO2 02/17/17 08:00 98.5 70 20 112/61 93 Room Air 02/17/17 04:00 97.0 70 19 110/67 94 Room Air 02/17/17 00:11 98.2 81 19 131/69 97 Room Air 02/16/17 21:50 Room Air 02/16/17 20:00 99.1 80 18 121/68 94 Room Air 02/16/17 16:05 96.4 83 20 117/70 96 Room Air 02/16/17 12:00 98.8 89 20 132/72 94 Room Air I & O 02/17/17 07:00 Intake Total 3040 ml Output Total 4410 ml Balance -1370 ml Capillary Refill : Less Than 3 Seconds General Appearance: No Apparent Distress HEENT: PERRL/EOMI Neck: Supple Respiratory: Lungs Clear Cardiovascular: Regular Rate, Rhythm Peripheral Pulses: 4+ Carotid (R), 4+ Carotid (L), 4+ Radial Pulses (R), 4+ Radial Pulses (L) Gastrointestinal: normal bowel sounds, non tender, soft, other (drains- bilateral lower quadrants ) Extremity: Non Tender, No Calf Tenderness Neurologic/Psychiatric: Alert, Oriented x3 Skin: Warm/Dry Lymphatic: No Adenopathy Results Lab Laboratory Tests 02/17/17 08:52: White Blood Count 11.8H, Red Blood Count 4.13L, Hemoglobin 12.3L, Hematocrit 36L , Mean Corpuscular Volume 87, Mean Corpuscular Hemoglobin 30, Mean Corpuscular Hemoglobin Concent 34, Red Cell Distribution Width 13.3, Platelet Count 365, Mean Platelet Volume 8.9, Neutrophils (%) (Auto) 70, Lymphocytes (%) (Auto) 16, Monocytes (%) (Auto) 9, Eosinophils (%) (Auto) 2, Basophils (%) (Auto) 3, Neutrophils # (Auto) 8.3H, Lymphocytes # (Auto) 1.9, Monocytes # (Auto) 1.1H, Eosinophils # (Auto) 0.3, Basophils # (Auto) 0.3H, Sodium Level 138, Potassium Level 3.2L, Chloride Level 104, Carbon Dioxide Level 24, Anion Gap 10, Blood Urea Nitrogen 6L, Creatinine 0.66, Estimat Glomerular Filtration Rate > 60, BUN/ Creatinine Ratio 9, Glucose Level 95, Calcium Level 8.1L Microbiology 02/13/17 Blood Culture - Preliminary, Resulted No growth 02/14/17 Gram Stain - Final, Resulted 02/14/17 Anaerobic Culture, Resulted Pending 02/14/17 Surgical Culture - Preliminary, Resulted Escherichia Coli Assessment/Plan Assessment/Plan Assessment/Plan Acute Diverticulitis with abdominal abscess colovesicular fistula s/p drains patient continue on ABX sips clears to clear liquid diet since tolerating Clinical Quality Measures DVT/VTE Risk/Contraindication: Risk Factor Score Per Nursin RFS Level Per Nursing on Admit: 2=Moderate CHHAYA WINTERS DO Feb 17, 2017 10:37 am
[2017-02-17 12:00] VITALS: BP 120/69
[2017-02-17] MEDS: POTASSIUM CL 10MEQ/50ML IVPB 50 ML IV SCH ×4 (12:36→16:12)
[2017-02-17 16:24] VITALS: BP 115/68
[2017-02-17 20:00] VITALS: BP 115/57
[2017-02-18 00:06] VITALS: BP 115/64
[2017-02-18] MEDS: PROCHLORPERAZINE 10 MG TAB (COMPAZINE) PO PRN ×3 (01:34→21:27)
[2017-02-18] MEDS: fentaNYL INJECTION 100 MCG/2 ML AMP IVP PRN ×5 (02:58→21:07)
[2017-02-18 04:14] VITALS: BP 116/60
[2017-02-18] MEDS: LACTATED RINGERS 1,000 ML IV SCH ×3 (05:43→16:12)
[2017-02-18] MEDS: MEROPENEM 500 MG/NS 100 ML IVPB IV SCH ×6 (06:20→18:00)
[2017-02-18 08:00] VITALS: BP 124/61
[2017-02-18] MEDS: CATHETER FLUSH 10 ML SYR IV SCH ×2 (08:03→21:00)
[2017-02-18] MEDS: PANTOPRAZOLE 40 MG/10 ML (PROTONIX) VIAL IV SCH (08:03)
[2017-02-18] MEDS: POTASSIUM CL 10MEQ/50ML IVPB 50 ML IV SCH ×3 (08:56→11:41)
[2017-02-18 08:59] LABS: BASOPHILS # (AUTO) 0.1 10^3/uL (0.0-0.1); BASOPHILS % (AUTO) 1 % (0-10); EOSINOPHILS # (AUTO) 0.3 10^3/uL (0.0-0.3); EOSINOPHILS % (AUTO) 2 % (0-10); LYMPHOCYTES # (AUTO) 1.7 X 10^3 (1.0-4.0); LYMPHOCYTES % (AUTO) 16 % (12-44); MEAN CORPUSCULAR HEMOGLOBIN 29 PG (25-34); MEAN CORPUSCULAR HGB CONC 34 G/DL (32-36); MEAN CORPUSCULAR VOLUME 88 FL (80-99); MONOCYTES # (AUTO) 0.8 X 10^3 (0.0-1.0); MONOCYTES % (AUTO) 8 % (0-12); NEUTROPHILS # (AUTO) 7.7 X 10^3 (1.8-7.8); NEUTROPHILS % (AUTO) 73 % (42-75); PLATELET COUNT 416 10^3/uL (130-400); RED BLOOD COUNT 4.33 10^6/uL (4.35-5.85); RED CELL DISTRIBUTION WIDTH 13.3 % (10.0-14.5); WHITE BLOOD COUNT 10.5 10^3/uL (4.3-11.0)
--- NOTE | 2017-02-18 09:01 | Progress Note (SOAP) ---
Subjective Subjective 26 yo M- admitted for abdominal pain, diverticutilitis- Doing better. Sitting up in the chair - drains decreasing output- 10cc overnight. Denies nausea/vomiting. Review of Systems General: No Chills, No Night Sweats, Fatigue, Malaise, Appetite HEENT: Head Aches Pulmonary: No Dyspnea, No Cough Cardiovascular: No: Chest Pain, Palpitations Gastrointestinal: Abdominal Pain (lower abdomen where the drains are), No: Nausea, Vomiting Genitourinary: No Dysuria Musculoskeletal: back pain, No: neck pain Neurological: No: Numbness, Weakness Objective Exam Vital Signs Vital Signs Date Time Temp Pulse Resp B/P (MAP) Pulse Ox O2 Delivery O2 Flow Rate FiO2 02/18/17 08:00 98.2 63 16 124/61 94 02/18/17 04:14 98.9 66 20 116/60 96 02/18/17 00:06 99.3 80 18 115/64 94 Room Air 02/17/17 21:00 Room Air 02/17/17 20:00 98.7 74 18 115/57 94 Room Air 02/17/17 16:24 98.5 85 20 115/68 95 Room Air 02/17/17 12:00 98.2 66 16 120/69 96 Room Air 02/17/17 09:00 Room Air I & O 02/18/17 07:00 Intake Total 5180 ml Output Total 4427 ml Balance 753 ml General Appearance: No Apparent Distress Eyes: Bilateral Eye EOMI, Bilateral Eye PERRL HEENT: PERRL/EOMI Neck: Supple Respiratory: Lungs Clear Cardiovascular: Regular Rate, Rhythm Gastrointestinal: Normal Bowel Sounds, Soft, Other (2 drains- lower abdomen.) Rectal: Deferred Back: No CVA Tenderness Extremity: Non Tender, No Calf Tenderness Neurologic/Psychiatric: Alert, Oriented x3 Skin: Warm/Dry Lymphatic: No Adenopathy Results Lab Laboratory Tests 02/18/17 08:38: Microbiology 02/13/17 Blood Culture - Preliminary, Resulted No growth 02/14/17 Gram Stain - Final, Resulted 02/14/17 Anaerobic Culture - Preliminary, Resulted Bacteroides Fragilis Group 02/14/17 Surgical Culture - Preliminary, Resulted Escherichia Coli Enterococcus Faecalis Probable Actinomyces Yeast Species Assessment/Plan Assessment/Plan Assessment/Plan 26 yo M sepsis due to Acute sigmoid diverticulitis- IVF, fentanyl, meropenem 02/13/17 - sips/chips- -ulcerative colitis vs Crohns? given concern for the fistula -blood culture NGTD Abdominal pain due to above and drain placement- plan as above Abdominal abscesses- culture -multi organisms. elevated BP w/o diagnosis of HTN- monitor, may be due to pain- currently normal. h/o recurrent UTIs- he has not had a work up- urology Dr. 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 Outpt workup with urology for recurrent uti. Problems: Clinical Quality Measures DVT/VTE Risk/Contraindication: Risk Factor Score Per Nursin RFS Level Per Nursing on Admit: 2=Moderate GLIDARDO VALERA MD Feb 18, 2017 09:01
--- NOTE | 2017-02-18 10:57 | Progress Note ---
Subjective Subjective/Events-last exam Pt seen and examined, no new complaints. Pt denies abdominal pain, tolerating clears and ambulating. + BM's and passing flatus, denies hematochezia. Denies problems urinating. Review of Systems General: No Chills, No Night Sweats HEENT: No Head Aches, No Visual Changes Pulmonary: No Dyspnea, No Cough Cardiovascular: No: Chest Pain, Palpitations Gastrointestinal: No: Abdominal Pain, Nausea, Vomiting Genitourinary: No Dysuria, No Hematuria Objective Exam Vital Signs Date Time Temp Pulse Resp B/P (MAP) Pulse Ox O2 Delivery O2 Flow Rate FiO2 02/18/17 08:00 98.2 63 16 124/61 94 02/18/17 04:14 98.9 66 20 116/60 96 02/18/17 00:06 99.3 80 18 115/64 94 Room Air 02/17/17 21:00 Room Air 02/17/17 20:00 98.7 74 18 115/57 94 Room Air 02/17/17 16:24 98.5 85 20 115/68 95 Room Air 02/17/17 12:00 98.2 66 16 120/69 96 Room Air I & O 02/18/17 07:00 Intake Total 5180 ml Output Total 4427 ml Balance 753 ml Capillary Refill : Less Than 3 Seconds General Appearance: No Apparent Distress, WD/WN HEENT: PERRL/EOMI, No Scleral Icterus (L), No Scleral Icterus (R) Neck: Full Range of Motion, Supple Respiratory: Lungs Clear, No Accessory Muscle Use Cardiovascular: Regular Rate, Rhythm, No Murmur Peripheral Pulses: 4+ Carotid (R), 4+ Carotid (L), 4+ Radial Pulses (R), 4+ Radial Pulses (L) Gastrointestinal: normal bowel sounds, non tender, soft, other (drains- bilateral lower quadrants ) Extremity: Non Tender, No Calf Tenderness Neurologic/Psychiatric: Alert, Oriented x3 Skin: Warm/Dry Lymphatic: No Adenopathy Results Lab Laboratory Tests 02/18/17 08:38: White Blood Count 10.5, Red Blood Count 4.33L, Hemoglobin 12.7L, Hematocrit 38L , Mean Corpuscular Volume 88, Mean Corpuscular Hemoglobin 29, Mean Corpuscular Hemoglobin Concent 34, Red Cell Distribution Width 13.3, Platelet Count 416H, Mean Platelet Volume 9.0, Neutrophils (%) (Auto) 73, Lymphocytes (%) (Auto) 16, Monocytes (%) (Auto) 8, Eosinophils (%) (Auto) 2, Basophils (%) (Auto) 1, Neutrophils # (Auto) 7.7, Lymphocytes # (Auto) 1.7, Monocytes # (Auto) 0.8, Eosinophils # (Auto) 0.3, Basophils # (Auto) 0.1 Microbiology 02/13/17 Blood Culture - Preliminary, Resulted No growth 02/14/17 Gram Stain - Final, Resulted 02/14/17 Anaerobic Culture - Preliminary, Resulted Bacteroides Fragilis Group 02/14/17 Surgical Culture - Preliminary, Resulted Escherichia Coli Enterococcus Faecalis Probable Actinomyces Yeast Species Assessment/Plan Assessment/Plan Assessment/Plan Acute sigmoid diverticulitis with perforation- s/p CT guided drainage, WBC down to normal, no abdominal pain, tolerating clears abscesses drained and cultured, pt on correct ABX. Plan to switch to soft diet, change to oral ABX tomorrow. Hopefully can send home by Saturday with drains. Abdominal abscesses- culture -multi organisms. h/o recurrent UTIs- he has not had a work up- urology Dr. 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
[2017-02-18 16:37] VITALS: BP 117/60
[2017-02-19] VITALS: BP 124/63
[2017-02-19] MEDS: fentaNYL INJECTION 100 MCG/2 ML AMP IVP PRN ×3 (00:06→06:01)
[2017-02-19] MEDS: LACTATED RINGERS 1,000 ML IV SCH ×4 (00:06→21:55)
[2017-02-19] MEDS: MEROPENEM 500 MG/NS 100 ML IVPB IV SCH ×6 (00:06→12:38)
[2017-02-19] MEDS: PROCHLORPERAZINE 10 MG TAB (COMPAZINE) PO PRN ×2 (06:01→18:40)
[2017-02-19 06:19] LABS: ALBUMIN 3.1 G/DL (3.2-4.5); ANION GAP 10 MMOL/L (5-14); BLOOD UREA NITROGEN 5 MG/DL (7-18); BUN/CREATININE RATIO 8; CALCIUM 8.3 MG/DL (8.5-10.1); CARBON DIOXIDE 23 MMOL/L (21-32); CHLORIDE 105 MMOL/L (98-107); CREATININE SERUM 0.63 MG/DL (0.60-1.30); GFR ESTIMATED > 60; GLUCOSE 89 MG/DL (70-105); MAGNESIUM 2.2 MG/DL (1.8-2.4); POTASSIUM 3.6 MMOL/L (3.6-5.0); SODIUM 138 MMOL/L (135-145)
[2017-02-19 08:00] VITALS: BP 119/57
[2017-02-19] MEDS: CATHETER FLUSH 10 ML SYR IV SCH ×2 (10:01→20:21)
[2017-02-19] MEDS: oxyCODONE/APAP 5/325MG (PERCOCET 5) TABLET PO PRN ×2 (10:01→18:34)
[2017-02-19] MEDS: PANTOPRAZOLE 40 MG/10 ML (PROTONIX) VIAL IV SCH (10:01)
[2017-02-19] MEDS: CATHETER FLUSH 10 ML SYR IV PRN (10:01)
[2017-02-19 15:20] VITALS: BP 109/58
--- NOTE | 2017-02-19 17:03 | Progress Note (SOAP) ---
Subjective Subjective 26 yo M- admitted for abdominal pain, diverticutilitis- Doing better. Sitting up in the chair - drains decreasing output- Denies nausea/vomiting. No new issues- pt would like drains to be removed cutting back on fentanyl- transition to po oxycodone/apap Review of Systems General: No Chills, No Night Sweats HEENT: No Head Aches, No Visual Changes Pulmonary: No Dyspnea, No Cough Cardiovascular: No: Chest Pain, Palpitations Gastrointestinal: No: Abdominal Pain, Nausea, Vomiting Genitourinary: No Dysuria, No Hematuria Musculoskeletal: back pain, No: neck pain Neurological: No: Numbness, Weakness Objective Exam Vital Signs Vital Signs Date Time Temp Pulse Resp B/P (MAP) Pulse Ox O2 Delivery O2 Flow Rate FiO2 02/20/17 00:37 98.0 55 20 114/67 99 Room Air 02/19/17 15:20 99.0 63 16 109/58 94 Room Air I & O 02/20/17 07:00 Intake Total 5415 ml Output Total 5180 ml Balance 235 ml General Appearance: No Apparent Distress, WD/WN Eyes: Bilateral Eye EOMI, Bilateral Eye PERRL HEENT: PERRL/EOMI, No Scleral Icterus (L), No Scleral Icterus (R) Neck: Full Range of Motion, Supple Respiratory: Lungs Clear, No Accessory Muscle Use Cardiovascular: Regular Rate, Rhythm, No Murmur Gastrointestinal: Normal Bowel Sounds, Soft, Other (2 drains- lower abdomen.) Rectal: Deferred Back: No CVA Tenderness Extremity: Non Tender, No Calf Tenderness Neurologic/Psychiatric: Alert, Oriented x3 Skin: Warm/Dry Lymphatic: No Adenopathy Results Lab Laboratory Tests 02/19/17 04:30: Sodium Level 138, Potassium Level 3.6, Chloride Level 105, Carbon Dioxide Level 23, Anion Gap 10, Blood Urea Nitrogen 5L, Creatinine 0.63, Estimat Glomerular Filtration Rate > 60, BUN/Creatinine Ratio 8, Glucose Level 89, Calcium Level 8.3L, Phosphorus Level 4.0, Magnesium Level 2.2, Albumin 3.1L Microbiology 02/13/17 Blood Culture - Final, Complete No growth 02/14/17 Gram Stain - Final, Complete 02/14/17 Anaerobic Culture - Final, Complete Bacteroides Fragilis Group 02/14/17 Surgical Culture - Final, Complete Escherichia Coli Enterococcus Faecalis Probable Actinomyces Presumptive Katie Albicans Assessment/Plan Assessment/Plan Assessment/Plan 26 yo M sepsis due to Acute sigmoid diverticulitis- IVF, meropenem 02/13/17-02/19/17 advancing diet. switching to flagyl, ciprofloxacin -ulcerative colitis vs Crohns? given concern for the fistula actinomyces in culture- -blood culture NGTD Abdominal pain due to above and drain placement- plan as above Abdominal abscesses- culture -multi organisms. including bacteroides, ecoli, actinomyces -- abdominal actinomycosis elevated BP w/o diagnosis of HTN- monitor h/o recurrent UTIs- he has not had a work up- urology Dr. 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 Kong next week. will need outpt colonoscopy- and likely surgery to resect bowel. Outpt workup with urology for recurrent uti. Problems: Clinical Quality Measures DVT/VTE Risk/Contraindication: Risk Factor Score Per Nursin RFS Level Per Nursing on Admit: 2=Moderate GILDARDO VALERA MD Feb 19, 2017 17:03
[2017-02-19] MEDS: metroNIDAZOLE 500 MG (FLAGYL) TAB PO SCH (20:21)
[2017-02-19] MEDS: CIPROFLOXACIN 500 MG (CIPRO) TABLET PO SCH (20:21)
[2017-02-20 00:37] VITALS: BP 114/67
[2017-02-20] MEDS: oxyCODONE/APAP 5/325MG (PERCOCET 5) TABLET PO PRN (04:23)
[2017-02-20] MEDS: metroNIDAZOLE 500 MG (FLAGYL) TAB PO SCH (07:55)
[2017-02-20] MEDS: CIPROFLOXACIN 500 MG (CIPRO) TABLET PO SCH (07:55)
[2017-02-20] MEDS: CATHETER FLUSH 10 ML SYR IV SCH (07:58)
[2017-02-20] MEDS: PANTOPRAZOLE 40 MG/10 ML (PROTONIX) VIAL IV SCH (07:59)
[2017-02-20 08:00] VITALS: BP 118/77
[2017-02-20] MEDS ORDERED: PANTOPRAZOLE 40 MG (PROTONIX) TAB PO SCH (09:15)
[2017-02-20] MEDS ORDERED: PROC10TA PO (09:28)
[2017-02-20] MEDS ORDERED: OXYC-471 PO (09:28)
[2017-02-20] MEDS ORDERED: PANT40TA3 PO (09:28)
[2017-02-20] MEDS ORDERED: AMOX875T2 PO (09:28)
[2017-02-20] MEDS ORDERED: METR500T21 PO (09:28)
[2017-02-20] MEDS ORDERED: CIPR500T4 PO ×2 (09:28→10:14)
--- NOTE | 2017-02-20 09:32 | Discharge Inst-Simple/Standard ---
Discharge Inst-Standard Discharge Medications New, Converted or Re-Newed RX: Transmitted to Pharmacy Patient Instructions/Follow Up Plan of Care/Instructions/FU: will complete 1 week of metronidazole and ciprofloxacin will be on amoxicillin for 6 months. Needs appt with Dr. Castillo Follow up appt with Dr. Kong Follow up appt with Dr. Moreira in 2 weeks Activity as Tolerated: Yes Discharge Diet: Eat Small Frequent Meals Return to The Hospital For: fever worsening abdominal pain GILDARDO MOREIRA MD Feb 20, 2017 09:32
--- NOTE | 2017-02-20 09:33 | Discharge Summary ---
Diagnosis/Chief Complaint Date of Admission Feb 11, 2017 at 17:25 Date of Discharge February 20, 2017 Admission Diagnosis Admission Diagnosis sepsis due to Acute sigmoid diverticulitis- Abdominal pain due to above and drain placement- Abdominal abscesses- elevated BP w/o diagnosis of HTN- h/o recurrent UTIs- . Discharge Diagnosis 26 yo M sepsis due to Acute sigmoid diverticulitis- Abdominal pain due to above and drain placement- Abdominal abscesses- elevated BP w/o diagnosis of HTN- h/o recurrent UTIs- hyperbilirubinemia hypomagnesemia hypokalemia Reason Hospital Visit 26 yo Male admitted for acute sigmoid diverticulitis- patient reports this abdominal pain has been going on for a while estimates about March 2016 at least. Patient has been a patient of [facility] and plans to transfer to [facility] for further evaluation of his medical concerns. Patient reports he's had approximately 10 urinary tract infections and he has been on antibiotics by [facility] and he improves during the duration of being on antibiotic but the abdominal pain returns. He has not had any further workup for these recurrent UTIs just treated with antibiotics each time. Patient does report a 50 pound weight loss over the past year but he cannot explain it as he hasn't really changed his diet much nor has he increased his exercise regimen. Patient has had bloody and/or dark black stools along with sometimes diarrhea sometimes constipation. 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 Patient denies any drug use nor any tobacco use but does use a vapor device. Patient also quit drinking right after his honeymoon as he was told his liver function tests were elevated. Patient's abdominal pain is LLQ currently- IVF, zosyn and fentanyl are helping him currently. He is NPO. CT of abdomen demonstrating diverticulitis concern for possible contained perforation. Admitted for further work up. Dr. Kong consulted and on the case. He he got in August 2016 and reports he remembers taking pain medications just to get through wedding pictures. Discharge Summary Hospital Course Hospital Course 26-year-old male admitted for acute sigmoid diverticulitis. Patient was placed on Flagyl and ciprofloxacin. Patient started to have fevers and white blood cells continued to climb and he became septic. A CT of his abdomen was repeated on the following day. The CT demonstrated abscesses in his abdomen. Radiology consulted for percutaneous drain placement. 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 Patient was placed on meropenem 02/13/17-02/19/17. His fevers resolved, white blood cells trended back down. His diet was advanced. Pt did continue to improve; he was not happy about leaving the drains in but agreed. He will follow up with Dr. Kong on February 25, 2017- He has a follow up appt with Dr. Castillo in a week or two. Pt's pain improved- and he went home with oxycodone/apap for pain control. Likely will not need pain medication once drains are pulled. Pt will complete course of metronidazole and ciprofloxacin for 5 more days, as well as fluconazole for the jose aspect- Pharmacy and Dr. Kong agreed to stop/ hold the amoxicillin. Will follow up with pt regarding this because if pt truly has abdominal actinomycosis he will need prolonged treatment with amoxicillin/penicillin for 6 months. will need outpt colonoscopy- and likely surgery to resect bowel. Dr Kong plans in 6 weeks doing the colonoscopy and bowel resection. Outpt workup with urology for recurrent uti. Labs Laboratory Tests 02/18/17 08:38: Red Blood Count 4.33L, Hemoglobin 12.7L, Hematocrit 38L, Platelet Count 416H 02/19/17 04:30: Blood Urea Nitrogen 5L, Calcium Level 8.3L, Albumin 3.1L Procedures None. Consultations Dr. Kong, Surgery Discharge Physical Examination Allergies: Coded Allergies: cat dander (Verified Allergy, Unknown, 02/11/17) Vitals & I&Os Vital Signs Date Time Temp Pulse Resp B/P (MAP) Pulse Ox O2 Delivery O2 Flow Rate FiO2 02/20/17 08:00 97.6 63 20 118/77 98 Room Air 02/15/17 10:05 2.00 General Appearance: Alert, Oriented X3, Cooperative HEENT: Atraumatic Respiratory: Clear to Auscultation Cardiovascular: Regular Rate Abdominal: Normal Bowel Sounds, Soft Extremities: No Clubbing, No Cyanosis Skin: No Rashes, No Breakdown Neuro: Normal Speech Psych/Mental Status: Mental Status NL Discharge Home Medications Reviewed and agree with Discharge Medication list on patient's Discharge Instruction sheet Condition at Discharge stable Instructions to Patient/Family Please see electronic discharge instructions given to patient. Clinical Quality Measures DVT/VTE Risk/Contraindication: Risk Factor Score Per Nursin RFS Level Per Nursing on Admit: 2=Moderate GILDARDO VALERA MD Feb 20, 2017 09:33
[2017-02-20] MEDS ORDERED: FLUC150T PO (10:14)
[2017-02-20] MEDS ORDERED: METR500T PO (10:14)
--- NOTE | 2017-02-20 10:22 | Progress Note ---
Subjective Subjective/Events-last exam Pt seen and examined, tolerating diet, having BM's and flatus. No trouble urinating. He is not very happy about leaving drains in to go home with. Pain controlled with meds. Review of Systems General: No Chills HEENT: No Head Aches Pulmonary: No Dyspnea, No Cough Cardiovascular: No: Chest Pain, Palpitations Gastrointestinal: Abdominal Pain (minimal), No: Nausea, Vomiting Genitourinary: No Dysuria, No Hematuria Objective Exam Vital Signs Date Time Temp Pulse Resp B/P (MAP) Pulse Ox O2 Delivery O2 Flow Rate FiO2 02/20/17 08:00 97.6 63 20 118/77 98 Room Air 02/20/17 00:37 98.0 55 20 114/67 99 Room Air 02/19/17 15:20 99.0 63 16 109/58 94 Room Air I & O 02/20/17 07:00 Intake Total 5415 ml Output Total 5180 ml Balance 235 ml Capillary Refill : Less Than 3 Seconds General Appearance: No Apparent Distress, WD/WN HEENT: PERRL/EOMI, Pharynx Normal, No Scleral Icterus (L), No Scleral Icterus ( R) Neck: Full Range of Motion, Supple Respiratory: Lungs Clear, No Accessory Muscle Use Cardiovascular: Regular Rate, Rhythm, No Murmur Peripheral Pulses: 4+ Carotid (R), 4+ Carotid (L), 4+ Radial Pulses (R), 4+ Radial Pulses (L) Gastrointestinal: normal bowel sounds, non tender, soft, other (drains- bilateral lower quadrants ) Extremity: Non Tender, No Calf Tenderness Neurologic/Psychiatric: Alert, Oriented x3, Other (Flat affect) Skin: Warm/Dry Lymphatic: No Adenopathy Results Lab Microbiology 02/13/17 Blood Culture - Final, Complete No growth 02/14/17 Gram Stain - Final, Complete 02/14/17 Anaerobic Culture - Final, Complete Bacteroides Fragilis Group 02/14/17 Surgical Culture - Final, Complete Escherichia Coli Enterococcus Faecalis Probable Actinomyces Presumptive Katie Albicans Assessment/Plan Assessment/Plan Assessment/Plan Sepsis due to Acute sigmoid diverticulitis- Plan to d/c today was on meropenem 02/13/17-02/19/17 Changing orals to flagyl, ciprofloxacin for 5 days and adding DIflucan for 4 days secondary to actinomyces in culture. I changed his ABX on discharge. I also had long talk regarding the necessity for leaving the drains in until he sees me in the office on Saturday. Will need outpt colonoscopy- and surgery to resect bowel. Abdominal pain due to above and drain placement- Rx for Oxycodone given by Dr. Moreira Abdominal abscesses- culture -multi organisms. including bacteroides, ecoli, actinomyces -- abdominal actinomycosis Elevated BP w/o diagnosis of HTN- monitor H/O recurrent UTIs- he has not had a work up- urology Dr. 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
== END 2017-02-20 11:10 | disposition home or self-care (01) | DRG 392 ==
LOC: ER 14:06 → 4TH 17:25
PROVIDERS: ADMIT Family Medicine; ATTEND Family Medicine
PROC: 0W9G30Z Drainage of Peritoneal Cavity with Drainage Device, Percutaneous Approach (ICD-10-PCS; principal; 2017-02-14)
DX: K57.20 Diverticulitis of large intestine with perforation and abscess without bleeding (principal); N32.1 Vesicointestinal fistula; N39.0 Urinary tract infection, site not specified; R17 Unspecified jaundice; K21.9 Gastro-esophageal reflux disease without esophagitis; B96.20 Unspecified Escherichia coli [E. coli] as the cause of diseases classified elsewhere; E83.42 Hypomagnesemia; E87.6 Hypokalemia; R03.0 Elevated blood-pressure reading, without diagnosis of hypertension
CPT/HCPCS: 36415; 74177; 77012; 80048; 80053; 80069; 80074; 80076; 81000; 83605; 83735; 85007; 85025; 85027; 85652; 87040; 87070; 87075; 87077; 87186; 87205; 94664; 94760; 96374; 96375

== ENCOUNTER 2017-03-26 09:36 | Outpatient (CLI) | payer BC, OTHER ==
[~2017-03-26] VITALS: Ht 188 cm; Wt 145.6 kg
[~2017-03-26 09:36] MED LIST changes: +AMOX875T2 PO; +CIPR-225 PO; +CIPR500T4 PO; +FLUC150T PO; +HYDR-757 PO; +LORA10TA76 PO; +METR500T PO; +METR500T21 PO; +NAPR220T66 PO; +OXYC-471 PO; +PANT40TA3 PO; -PIPERACILLIN/TAZOBACTAM 4.5 GM/NS 100 ML IVPB IV SCH; +PROC10TA PO
[2017-03-26] MEDS ORDERED: PANT40TA3 PO (10:05)
[2017-03-26] MEDS ORDERED: AMOX875T2 PO (10:05)
[2017-03-26 10:31] VITALS: BP 129/67
[2017-03-26 10:42] LABS: BASOPHILS # (AUTO) 0.1 10^3/uL (0.0-0.1); BASOPHILS % (AUTO) 0 % (0-10); EOSINOPHILS # (AUTO) 0.2 10^3/uL (0.0-0.3); EOSINOPHILS % (AUTO) 1 % (0-10); LYMPHOCYTES # (AUTO) 2.3 X 10^3 (1.0-4.0); LYMPHOCYTES % (AUTO) 16 % (12-44); MEAN CORPUSCULAR HEMOGLOBIN 29 PG (25-34); MEAN CORPUSCULAR HGB CONC 33 G/DL (32-36); MEAN CORPUSCULAR VOLUME 86 FL (80-99); MEAN PLATELET VOLUME 9.6 FL (7.4-10.4); MONOCYTES # (AUTO) 1.2 X 10^3 (0.0-1.0); MONOCYTES % (AUTO) 8 % (0-12); NEUTROPHILS # (AUTO) 10.2 X 10^3 (1.8-7.8); NEUTROPHILS % (AUTO) 74 % (42-75); PLATELET COUNT 313 10^3/uL (130-400); RED BLOOD COUNT 4.89 10^6/uL (4.35-5.85); RED CELL DISTRIBUTION WIDTH 13.7 % (10.0-14.5); WHITE BLOOD COUNT 13.8 10^3/uL (4.3-11.0)
== END 2017-03-26 10:25 | disposition home or self-care (01) ==
LOC: PREOP 09:36
PROVIDERS: ATTEND Surgery
DX: Z01.812 Encounter for preprocedural laboratory examination (principal); Z11.2 Encounter for screening for other bacterial diseases; K57.92 Diverticulitis of intestine, part unspecified, without perforation or abscess without bleeding
CPT/HCPCS: 36415; 85025; 87081

== ENCOUNTER 2017-04-01 05:56 | Inpatient (IN) | payer BC ==
[~2017-04-01] VITALS: Ht 188 cm; Wt 145.6 kg
[2017-04-01] MEDS ORDERED: ceFAZolin 2 GM/50 ML NS 50 ML ONE (06:26)
[2017-04-01] MEDS: LACTATED RINGERS 1,000 ML IV PRN ×3 (06:30→10:07)
[2017-04-01] MEDS ORDERED: proPOfol 200 MG/20 ML (DIPRIVAN) VIAL IV ONE (06:39)
[2017-04-01] MEDS ORDERED: DEXAMETHASONE PF 10 MG/ML (DECADRON) VIAL ONE (06:39)
[2017-04-01] MEDS ORDERED: SEVOFLURANE (ULTANE) 15 ML INHAL SOLN ONE ×14 (06:39→12:32)
[2017-04-01] MEDS ORDERED: LIDOCAINE PF 2% 5 ML (XYLOCAINE) VIAL ONE (06:39)
[2017-04-01] MEDS ORDERED: LACTATED RINGERS 1,000 ML IV ONE (06:39)
[2017-04-01] MEDS ORDERED: fentaNYL INJECTION 100 MCG/2 ML AMP ONE ×2 (06:39→14:50)
[2017-04-01] MEDS ORDERED: HURRICAINE EXT TUBE (BENZOCAINE) ONE (06:39)
[2017-04-01] MEDS ORDERED: MIDAZOLAM 2 MG/2 ML (VERSED) VIAL ONE (06:45)
[2017-04-01] MEDS ORDERED: LACTATED RINGERS 1,000 ML IV PRN (06:57)
[2017-04-01] MEDS ORDERED: ONDANSETRON 4 MG/2 ML (SDV) Z0FRAN IV ONE (07:00)
[2017-04-01] MEDS ORDERED: FAMOTIDINE 20MG/2ML IV (PEPCID) IV ONE (07:00)
[2017-04-01] MEDS ORDERED: MIDAZOLAM 2 MG/2 ML (VERSED) VIAL IV ONE (07:00)
[2017-04-01] MEDS ORDERED: ATRACURIUM 50 MG/5 ML (TRACRIUM) IV ONE ×2 (07:09→09:00)
[2017-04-01] MEDS ORDERED: ceFAZolin 2 GM/NS 50 ML IV ONE (07:30)
[2017-04-01] MEDS ORDERED: BUP/EPI 0.25% 1:200,000 (MARCAINE) 30 ML VIAL ONE (07:33)
--- NOTE | 2017-04-01 08:11 | Progress Note-Pre Operative ---
Pre-Operative Progress Note H&P Reviewed The H&P was reviewed, patient examined and no changes noted. Time Seen by Provider: 08:03 Date H&P Reviewed: Apr 01, 2017 Time H&P Reviewed: 08:03 Pre-Operative Diagnosis: [place]-Vesical fistula, Diverticulitis BESS JACKSON DO Apr 01, 2017 08:11
[2017-04-01] MEDS ORDERED: LIDOCAINE/EPI 1%-1:100,000 (XYLOCAINE) 20ML ONE ×2 (08:32→09:20)
[2017-04-01] MEDS ORDERED: fentaNYL INJECTION 250 MCG/5 ML AMP ONE (09:09)
[2017-04-01] MEDS ORDERED: ESMOLOL 100 MG/10 ML (BREVIBLOC) VIAL ONE (09:34)
--- NOTE | 2017-04-01 10:07 | OPERATIVE REPORT ---
DATE OF SERVICE: 04/01/2017 PREOPERATIVE DIAGNOSES: Colovesical fistula, diverticulitis. POSTOPERATIVE DIAGNOSES: Colovesical fistula, diverticulitis. PROCEDURE: Colonoscopy. SURGEON: Dr. Dilan DESAI ASSIST: None. ANESTHESIA: General endotracheal tube. BLOOD LOSS: None. SPECIMENS: None. FLUIDS: Per anesthesia. POSTOPERATIVE CONDITION: Stable. 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 FINDINGS: Patient had area of diverticulitis that looked still inflamed, but no signs of ulcerative colitis or Crohn's. PROCEDURE NOTE: After informed consent was obtained, patient was brought to the operating room. He was placed on the table in the left lateral decubitus position after being intubated. The colonoscope was then inserted, pushed all the way to [address] in, noted an area of erythema and inflammation right in the sigmoid. Pushed all the way to the cecum, took pictures of the appendiceal orifice. Able to get into the terminal ileum and took a picture. All of this looked normal. No ulcers or inflammation in the sotelo. Slid the duodenoscope, insufflating to look circumferentially at the sotelo, looked at the cecum, up the ascending colon to the hepatic flexure and down now in the transverse colon to the splenic flexure, into the descending colon and down in the sigmoid. In the sigmoid, saw some inflammation, saw some diverticula. Took pictures of diverticula. This area of inflammation looked like it was probably right where the colovesical fistula was. Did not see actual fistula, did not see any purulence, just some erythema and a little bit of signs of inflammation. Continued down through here into the rectum, retroflexed in the rectal vault and saw some minimal internal hemorrhoids. No other obvious pathology. The scope was then removed. The patient tolerated the procedure and then he was flipped back onto his back because he was then set up for a colon resection. Job ID: [id number] DocumentID: [id number] Dictated Date: 04/01/2017 09:10:05 Billet Cutter Date: 04/01/2017 10:06:49 Dictated By: DO ROSIE TOMLINSON
[2017-04-01] MEDS ORDERED: METHYLENE BLUE 1% INJ 1 ML AMP ONE (12:28)
[2017-04-01] MEDS ORDERED: NEOSTIGMINE (BLOXIVERZ ) 1 MG/1ML 10 ML VIAL ONE (12:37)
[2017-04-01] MEDS ORDERED: GLYCOPYRROLATE 0.2 MG/ML (ROBINUL) 2 ML VIAL ONE (12:37)
[2017-04-01] MEDS: ONDANSETRON 4 MG/2 ML (SDV) Z0FRAN IVP PRN ×2 (12:58→13:28)
[2017-04-01] MEDS ORDERED: ONDANSETRON 4 MG/2 ML (SDV) Z0FRAN ONE (12:58)
[2017-04-01] MEDS ORDERED: MEPERIDINE (DEMEROL) INJ 50 MG/ML IVP PRN (13:15)
[2017-04-01] MEDS ORDERED: HYDROmorphone (DILAUDID) 2 MG/ML VIAL IVP PRN (13:15)
[2017-04-01] MEDS ORDERED: fentaNYL INJECTION 100 MCG/2 ML AMP IVP PRN ×2 (13:15→16:30)
[2017-04-01] MEDS: morphine INJ 10 MG/ML 1ML (SYR OR VIAL) IVP PRN ×5 (13:18→23:26)
--- NOTE | 2017-04-01 13:25 | Progress Note-Post Operative ---
Post-Operative Progess Note Surgeon (s)/Executive Vice President And Chief Financial Officer (s) Surgeon BESS JACKSON DO Executive Vice President And Chief Financial Officer: none Pre-Operative Diagnosis [place]-Vesical fistula, Diverticulitis Post-Operative Diagnosis Same plus Internal Hemorrhoids Procedure & Operative Findings Date of Procedure 04/01/17 Procedure Performed/Findings Colonoscopy Anesthesia Type GET Estimated Blood Loss Estimated blood loss (mL): none Specimens/Packing Specimens Removed none BESS JACKSON DO Apr 01, 2017 13:25
--- NOTE | 2017-04-01 13:28 | Progress Note-Post Operative ---
Post-Operative Progess Note Surgeon (s)/Child Psychometrist (s) Surgeon BESS JACKSON DO Child Psychometrist: [place] Pre-Operative Diagnosis [place]-Vesical fistula, Diverticulitis Post-Operative Diagnosis Same plus...... Indurated firm portion of small intestine Thickened appendiceal base and erythematous tip Procedure & Operative Findings Date of Procedure 04/01/17 Procedure Performed/Findings Colon resection with primary anastomosis Small bowel resection Appendectomy Enterotomy Anesthesia Type GET Estimated Blood Loss Estimated blood loss (mL): appx 50ml Specimens/Packing Specimens Removed Portion of Descending Colon and portion of Sigmoid Colon Portion of small intestine Appendix Packing: none BESS JACKSON DO Apr 01, 2017 13:28
[2017-04-01 14:12] VITALS: BP 127/74
[2017-04-01 15:58] VITALS: BP 148/77
[2017-04-01] MEDS ORDERED: ONDANSETRON 4 MG/2 ML (SDV) Z0FRAN IVP PRN ×2 (16:30→17:00)
[2017-04-01] MEDS ORDERED: LACTATED RINGERS 1,000 ML IV SCH (16:30)
[2017-04-01] MEDS: LACTATED RINGERS 1,000 ML IV SCH ×2 (17:19→23:26)
[2017-04-01] MEDS: KETOROLAC 30 MG/ML VIAL IVP PRN (17:21)
[2017-04-01] MEDS: ENOXAPARIN 40 MG/0.4 ML (LOVENOX) SYR SC SCH (17:24)
[2017-04-01 19:10] VITALS: BP 117/74
[2017-04-01 23:30] VITALS: BP 105/55
[2017-04-02] MEDS: KETOROLAC 30 MG/ML VIAL IVP PRN (02:31)
[2017-04-02 03:15] VITALS: BP 110/58
[2017-04-02] MEDS: morphine INJ 10 MG/ML 1ML (SYR OR VIAL) IVP PRN ×4 (03:23→12:05)
[2017-04-02] MEDS: LACTATED RINGERS 1,000 ML IV SCH ×4 (06:04→21:22)
[2017-04-02 06:38] LABS: BASOPHILS % (AUTO) 0 % (0-10); EOSINOPHILS % (AUTO) 0 % (0-10); LYMPHOCYTES % (AUTO) 14 % (12-44); MEAN CORPUSCULAR HEMOGLOBIN 29 PG (25-34); MEAN CORPUSCULAR HGB CONC 34 G/DL (32-36); MEAN CORPUSCULAR VOLUME 87 FL (80-99); MEAN PLATELET VOLUME 9.4 FL (7.4-10.4); MONOCYTES # (AUTO) 1.4 X 10^3 (0.0-1.0); MONOCYTES % (AUTO) 10 % (0-12); NEUTROPHILS # (AUTO) 10.7 X 10^3 (1.8-7.8); NEUTROPHILS % (AUTO) 76 % (42-75); PLATELET COUNT 334 10^3/uL (130-400); RED BLOOD COUNT 4.62 10^6/uL (4.35-5.85); RED CELL DISTRIBUTION WIDTH 13.8 % (10.0-14.5); WHITE BLOOD COUNT 14.1 10^3/uL (4.3-11.0)
[2017-04-02 06:56] LABS: ALANINE AMINOTRANSFERASE 57 U/L (0-55); ALBUMIN 3.4 G/DL (3.2-4.5); ANION GAP 9 MMOL/L (5-14); ASPARTATE AMINO TRANSFERASE 31 U/L (5-34); BILIRUBIN,TOTAL 1.3 MG/DL (0.1-1.0); BLOOD UREA NITROGEN 8 MG/DL (7-18); BUN/CREATININE RATIO 10; CARBON DIOXIDE 25 MMOL/L (21-32); CHLORIDE 106 MMOL/L (98-107); CREATININE SERUM 0.81 MG/DL (0.60-1.30); GFR ESTIMATED > 60; GLUCOSE 112 MG/DL (70-105); POTASSIUM 3.9 MMOL/L (3.6-5.0); SODIUM 140 MMOL/L (135-145); TOTAL PROTEIN 6.8 G/DL (6.4-8.2)
[2017-04-02 08:00] VITALS: BP 118/60
--- NOTE | 2017-04-02 11:14 | Anesthesia-General Post-Op ---
General Patient Condition Mental Status/LOC: Same as Preop Cardiovascular: Satisfactory Nausea/Vomiting: Absent Respiratory: Satisfactory Pain: Controlled Complications: Absent Post Op Complications Complications None Follow Up Care/Instructions Patient Instructions None needed. Anesthesia/Patient Condition Patient Condition Patient is doing well, no complaints, stable vital signs, no apparent adverse anesthesia problems. No complications reported per nursing. D/C home per [facility] Criteria: MICHELLE Katz DO Apr 02, 2017 11:14
[2017-04-02 12:00] VITALS: BP 109/66
[2017-04-02] MEDS: morphine INJ 4 MG/ML 1 ML (VIAL/SYRINGE) IVP PRN ×4 (14:15→21:21)
[2017-04-02 15:37] VITALS: BP 123/66
--- NOTE | 2017-04-02 15:46 | Progress Note ---
Subjective Date Seen by Provider: Apr 02, 2017 Time Seen by Provider: 15:11 Subjective/Events-last exam Pt seen and examined. He complains of abdominal pain, mainly at incision. Denies N/V or chills. He states he feels like his penis is raw from portillo; had bleeding around it yesterday. He has not walked yet. Tolerating clears without any difficulty. Review of Systems General: No Chills, No Night Sweats HEENT: No Head Aches Pulmonary: No Dyspnea Cardiovascular: No: Chest Pain, Palpitations Gastrointestinal: Abdominal Pain, Other (no flatus or BM) Objective Exam Vital Signs Date Time Temp Pulse Resp B/P (MAP) Pulse Ox O2 Delivery O2 Flow Rate FiO2 04/02/17 12:00 97.7 82 18 109/66 93 04/02/17 08:00 97.4 73 16 118/60 94 04/02/17 03:15 96.9 94 20 110/58 95 04/01/17 23:30 98.2 99 18 105/55 94 04/01/17 19:10 97.8 98 18 117/74 95 04/01/17 15:58 100.0 84 20 148/77 96 I & O 04/02/17 07:00 Intake Total 4850 ml Output Total 2200 ml Balance 2650 ml Capillary Refill : General Appearance: Moderate Distress, Obese HEENT: PERRL/EOMI Respiratory: Lungs Clear Cardiovascular: Regular Rate, Rhythm Gastrointestinal: tenderness (diffusely), other (incision is intact, some bleeding from midline incision) Results Lab Laboratory Tests 04/02/17 06:24: White Blood Count 14.1H, Red Blood Count 4.62, Hemoglobin 13.4, Hematocrit 40, Mean Corpuscular Volume 87, Mean Corpuscular Hemoglobin 29, Mean Corpuscular Hemoglobin Concent 34, Red Cell Distribution Width 13.8, Platelet Count 334, Mean Platelet Volume 9.4, Neutrophils (%) (Auto) 76H, Lymphocytes (%) (Auto) 14 , Monocytes (%) (Auto) 10, Eosinophils (%) (Auto) 0, Basophils (%) (Auto) 0, Neutrophils # (Auto) 10.7H, Lymphocytes # (Auto) 2.0, Monocytes # (Auto) 1.4H, Eosinophils # (Auto) 0.0, Basophils # (Auto) 0.0, Sodium Level 140, Potassium Level 3.9, Chloride Level 106, Carbon Dioxide Level 25, Anion Gap 9, Blood Urea Nitrogen 8, Creatinine 0.81, Estimat Glomerular Filtration Rate > 60, BUN/ Creatinine Ratio 10, Glucose Level 112H, Calcium Level 9.0, Total Bilirubin 1.3H , Aspartate Amino Transf (AST/SGOT) 31, Alanine Aminotransferase (ALT/SGPT) 57H , Alkaline Phosphatase 48, Total Protein 6.8, Albumin 3.4 Assessment/Plan Assessment/Plan Assessment/Plan S/P Colon resection --Pt told to ambulate, use IS 10 times Q1hr. Ok to chew gum (will help stimulate intestinal motility). Pt can continue clear liquids. Will keep portillo in place for at least one more day secondary to possible incorrect placement yesterday. Check labs in am. Clinical Quality Measures DVT/VTE Risk/Contraindication: Risk Factor Score Per Nursin RFS Level Per Nursing on Admit: 3=High BESS JACKSON DO Apr 02, 2017 15:46
[2017-04-02] MEDS: ENOXAPARIN 40 MG/0.4 ML (LOVENOX) SYR SC SCH (16:16)
[2017-04-02 19:15] VITALS: BP 123/66
--- NOTE | 2017-04-02 23:31 | OPERATIVE REPORT ---
DATE OF SERVICE: 04/01/2017 PREOPERATIVE DIAGNOSES: 1. Colovesical fistula. 2. Diverticulitis. POSTOPERATIVE DIAGNOSES: 1. Colovesical fistula. 2. Diverticulitis. 3. Firm, indurated small intestine. 4. Appendix with thickened base and possible erythematous tip. 5. Intestinal distention. PROCEDURES: 1. Colon resection with primary anastomosis. 2. Small bowel resection. 3. Appendectomy. 4. Enterotomy. 5. Takedown of splenic flexure. SURGEON: Dr. Kong BUSINESS ASST: Dr. Byrd ANESTHESIA: General endotracheal tube. SPECIMEN: 1. Portion of descending colon and sigmoid colon. 2. Portion of small intestine. 3. Appendix. ESTIMATED BLOOD LOSS: Less than 50 cc. FLUIDS: Per anesthesia. Post Op Condition: Stable. INDICATION FOR PROCEDURE: The patient is a 26-year-old male who had a severe attack of diverticulitis with large perforation of purulent fluid. He had had this treated nonoperatively with drain placement by CT-guided interventional radiology. Also found to have a probably colovesical fistula because he was having recurrent and chronic UTI, and had air in the bladder on CAT scan which can only occur with colovesical fistula or instrumentation that he had not had a previous Leiva placed. FINDINGS: The patient had a lot of information and colon stuck to the bladder wall, but did not appear to be any connection that may have closed off because expanding the bladder with saline should not show any leaking fluid. He also had an indurated, almost looked to be compromised portion of small intestine. This may have been attached to the area of inflammation from his perforated diverticulitis. It was felt that this needed to come out. Appendix upon visualization, the base was very thickened and the tip was a little bit erythematous, so it was felt needed to take this out. He also had some intestinal dilation that we had to fix to help with the procedure by doing enterotomy. PROCEDURE NOTE: After informed consent was obtained, the patient was in the operating room. He was placed on table in supine and lithotomy position. He was sterilely prepped and draped in normal fashion. He had had a 3-way Leiva catheter placed. Then, sterilely prepped and draped in normal fashion. Elected to start this procedure using hand-assisted laparoscopic technique, placed the hand port, made a small 4 cm to 5 cm incision from just above the umbilicus to just below it, going down to the skin into the subcutaneous tissue with Bovie electrocautery, first with #15 blade, then with a Bovie electrocautery down to the fascia. Fascia was incised with electrocautery and then placed the wound protector into the abdomen and tightened it down. Then placed a Gelport over this. Once this was in place, then placed the scope through the Gelport and then watch as I place two more ports, one in the left lower quadrant just medial to the ASIS and one laterally but just above the umbilicus. Using local lidocaine, 11-blade for the incision and then using a Versaport watching this come into make sure it did not do any damage to bowel. These were placed, then started doing, changed the port to the Versaport and using LigaSure in my hand, started coming across and freeing up the scar down colon, lot of adhesions of the colon into the pelvis as well as some omentum using the LigaSure to clamp and coagulate, and then transect coming across this and bringing these out as well as blunt dissection. Once had carefully pulled all this out of the pelvis, the patient was in Trendelenburg. Then, had the nurse fill up the bladder with 500 cc of normal saline. There did not appear to be any leak. The bladder remained full and then allowed to drain this out. During this procedure, we had a very hard time getting enough pneumoperitoneum to really get good visualization, almost like the patient was relaxed but still confused to struggle along. Then, decided to come up along the left pericolic gutter along the white line of Toldt freeing this up and then taking down the splenic flexure. Took this down laparoscopically to actually the intestine and gastrocolic ligament and omentum was very attached to the spleen, able to carefully take these down to LigaSure, take this away and then roll this corner, the splenic flexure, roll this corner in so it could get a little bit more length. At this point, then decided because there was actually a very long portion of rectum in the sigmoid colon that was good, felt that the best way to probably do this procedure would be to open, cut out the bad portion of the sigmoid and descending colon and then attach to [id number] functional end-to-end and during the procedure, in order to help take down the splenic flexure as well as helping with take down some of the adhesions in the pelvis, I had placed 2 more ports. These were VersaStep port, a 12 mm and a 5 mm on the left side to be able to help get access and get the LigaSure up high enough to help take down the splenic flexure. After we decided we would not be able to finish this laparoscopically, then opened the midline incision, opened it further, took out the wound protector. Attempted to try and pack away some of the small intestine but unfortunately, all the small intestine, even the large intestine was very dilated with air. This was in our way and we could not move it and so elected to do a small enterotomy in the small intestine, grabbed 2 corners of 3-0 Vicryl popoffs and then made an incision in-between these with Bovie electrocautery, and then suctioned out the inner air to then decrease all these intestinal contents. There was actually no fluid. It was just mostly air. Had tried to get it up into the stomach to suction this out with NG tube but unfortunately, anesthesia was unable to get an NG tube down which was why we then did the enterotomy and then closed this enterotomy with 3 more, 3-0 Vicryl popoffs and the 2 that we already down, tied these and then dropped this back in. While running the bowel, we then found a portion that was indurated, firm, appeared like the small bowel was almost compromised, the intestinal lumen and so elected to remove this portion of the small, probably 10 cm portion, used the Hemostat to get into the mesentery and then placed a JOSEP across the intestine, used actually one 75 JOSEP load to cross both intestines. I took this out and then removed the rest of the small intestine with LigaSure, clamping, coagulating and transecting this fashion, removing this portion of the small intestine. Then reattached the small intestine with another JOSEP 75 load, one on either side clamped together on the antimesenteric border and then fired there by creating a [id number] and functional end-to-end small bowel anastomosis, and then closed the open portion with another JOSEP 75 reload and then reinforced the staple with 3-0 Vicryl popoffs. Then closed the mesenteric defect with another 3-0 Vicryl popoff. At this point, elected to go just below the firm portion of sigmoid colon distally, got under the colon to the mesentery of the Hemostat and then placed another JOSEP 75, clamped and fired, thereby transecting it and then coming under the LigaSure, clamping, coagulating and transecting it and removing the portion where the diverticular phlegmon and indurated colon was removing the sigmoid and portion of descending colon up to what we felt was a good portion of descending colon. At this point, decided we could not do a twwy-co-[id number] anastomosis so elected to cut off the proximal portion, the cuff that had been created with the JOSEP and placed a pursestring applicator and then fired a pursestring, and then placed a 29 ILS anvil in the proximal portion of colon, and tied the purestring down around the base of the anvil. Next opened the distal portion, cut off the cuff at the staple line and placed a JOSEP stapling device through here, and then brought it out on the tinea, and then brought the trocar out through the tinea, and then attached this to the anvil and then tightened it down, clamped it for 30 seconds and then fired and held 20 seconds. Removed this stapling device; turned three-quarter turn and then removed the anvil, which moved easily; thereby, getting an end-to-side anastomosis. Finally held the open portion of the distal colon, and then used a TA to fire across here to close this, a TA-60. Then, reinforced this using a 3-0 Vicryl popoff to suture to the distal portion of the colon, the sigmoid and the descending colon to help take some tension of the staple line. It felt and looked as if there was little to no tension with the anastomosis. Also, oversewed the TA stapler line as well. Then while looking around, noted the appendix. The base was a little bit thickened, more than normal, almost a centimeter in size and the tip looked a little bit erythematous so we elected to remove this, used another JOSEP which we had an extra load that had been opened, and used the JOSEP 75 across the base of the appendix, clamps are fired and then took the mesoappendix off using LigaSure clamping, coagulating and transecting and in this fashion taking the mesoappendix off and the appendiceal artery. After this, we copiously irrigated with normal saline, 3 L of warm normal saline was used. We also placed a sigmoidoscope into the rectum. Dr. Byrd went below, placed this in the rectum and then a clamp was placed across the superior portion just above the anastomosis, and then insufflated below. It dilated and there was no leakage of any air coming through. At this point, then allowed the air to escape, took off the clamp, irrigated again with some warm normal saline and then elected to close the midline incision closing with a #1 double-stranded PDS suture, one from the superior portion and one from the inferior portion running together and meet in the middle and then tying, irrigating this incision and then closing this incision with cristin. We looked with the scopes, looked on the inside and the midline incision looked good, and then removed all ports and allow the pneumoperitoneum to escape, closed the skin of the midline, closed the midline incision with cristin and then closed the other 12 mm port sites and the 5 mm port sites with cristin as well. The area was clean and dried, pressure dressing placed, and the patient was then transferred to recovery room in stable condition. Sponge, needle count correct at end of case. Dr. Byrd assisted in this case. He assisted with opening the abdomen, placing trocar ports, holding some of the colon out of the way as well as visualize the anatomy and helping with exposure. His role was vital to this case. Job ID: [id number] DocumentID: [id number] Dictated Date: 04/02/2017 14:49:01 Dance Instructor Date: 04/02/2017 22:32:59 Dictated By: DO ROSIE TOMLINSON
[2017-04-03] VITALS: BP 116/68
[2017-04-03] MEDS: morphine INJ 4 MG/ML 1 ML (VIAL/SYRINGE) IVP PRN ×3 (00:13→04:40)
[2017-04-03 04:57] LABS: BASOPHILS % (AUTO) 0 % (0-10); EOSINOPHILS # (AUTO) 0.1 10^3/uL (0.0-0.3); EOSINOPHILS % (AUTO) 1 % (0-10); LYMPHOCYTES # (AUTO) 2.2 X 10^3 (1.0-4.0); LYMPHOCYTES % (AUTO) 16 % (12-44); MEAN CORPUSCULAR HEMOGLOBIN 29 PG (25-34); MEAN CORPUSCULAR HGB CONC 33 G/DL (32-36); MEAN CORPUSCULAR VOLUME 88 FL (80-99); MEAN PLATELET VOLUME 9.6 FL (7.4-10.4); MONOCYTES # (AUTO) 1.3 X 10^3 (0.0-1.0); MONOCYTES % (AUTO) 10 % (0-12); NEUTROPHILS # (AUTO) 9.6 X 10^3 (1.8-7.8); NEUTROPHILS % (AUTO) 73 % (42-75); PLATELET COUNT 291 10^3/uL (130-400); RED BLOOD COUNT 4.21 10^6/uL (4.35-5.85); RED CELL DISTRIBUTION WIDTH 13.9 % (10.0-14.5); WHITE BLOOD COUNT 13.2 10^3/uL (4.3-11.0)
[2017-04-03 05:17] LABS: ALANINE AMINOTRANSFERASE 43 U/L (0-55); ALBUMIN 3.5 G/DL (3.2-4.5); ANION GAP 11 MMOL/L (5-14); ASPARTATE AMINO TRANSFERASE 25 U/L (5-34); BILIRUBIN,TOTAL 1.3 MG/DL (0.1-1.0); BLOOD UREA NITROGEN 6 MG/DL (7-18); BUN/CREATININE RATIO 8; CALCIUM 8.8 MG/DL (8.5-10.1); CARBON DIOXIDE 24 MMOL/L (21-32); CHLORIDE 104 MMOL/L (98-107); CREATININE SERUM 0.74 MG/DL (0.60-1.30); GFR ESTIMATED > 60; GLUCOSE 97 MG/DL (70-105); POTASSIUM 3.7 MMOL/L (3.6-5.0); SODIUM 139 MMOL/L (135-145)
[2017-04-03] MEDS: LACTATED RINGERS 1,000 ML IV SCH (07:49)
[2017-04-03] MEDS: KETOROLAC 30 MG/ML VIAL IVP PRN (07:57)
[2017-04-03 08:00] VITALS: BP 118/73
--- NOTE | 2017-04-03 10:29 | Progress Note ---
Subjective Date Seen by Provider: Apr 03, 2017 Time Seen by Provider: 10:17 Subjective/Events-last exam Pt seen and examined. States his pain is better, he is not ambulating much though. +Flatus but no BM. Tolerating diet and is ok with removing portillo today. No more blood in portillo. Review of Systems General: No Chills Pulmonary: No Cough Cardiovascular: No: Chest Pain, Palpitations Gastrointestinal: Abdominal Pain, No: Nausea, Vomiting Genitourinary: Dysuria, No Hematuria Objective Exam Vital Signs Date Time Temp Pulse Resp B/P (MAP) Pulse Ox O2 Delivery O2 Flow Rate FiO2 04/03/17 08:00 97.2 98 20 118/73 92 04/03/17 00:00 99.5 108 22 116/68 94 04/02/17 19:15 99.2 100 18 123/66 97 04/02/17 18:28 94 04/02/17 15:37 99.2 79 18 123/66 94 04/02/17 12:00 97.7 82 18 109/66 93 I & O 04/03/17 07:00 Intake Total 4100 ml Output Total 1575 ml Balance 2525 ml Capillary Refill : General Appearance: Mild Distress, Obese HEENT: PERRL/EOMI Respiratory: Lungs Clear Cardiovascular: Regular Rate, Rhythm Gastrointestinal: tenderness (diffusely), other (incision is intact, scant bleeding from midline incision) Results Lab Laboratory Tests 04/03/17 04:22: White Blood Count 13.2H, Red Blood Count 4.21L, Hemoglobin 12.3L, Hematocrit 37L , Mean Corpuscular Volume 88, Mean Corpuscular Hemoglobin 29, Mean Corpuscular Hemoglobin Concent 33, Red Cell Distribution Width 13.9, Platelet Count 291, Mean Platelet Volume 9.6, Neutrophils (%) (Auto) 73, Lymphocytes (%) (Auto) 16, Monocytes (%) (Auto) 10, Eosinophils (%) (Auto) 1, Basophils (%) (Auto) 0, Neutrophils # (Auto) 9.6H, Lymphocytes # (Auto) 2.2, Monocytes # (Auto) 1.3H, Eosinophils # (Auto) 0.1, Basophils # (Auto) 0.0 04/03/17 04:27: Sodium Level 139, Potassium Level 3.7, Chloride Level 104, Carbon Dioxide Level 24, Anion Gap 11, Blood Urea Nitrogen 6L, Creatinine 0.74, Estimat Glomerular Filtration Rate > 60, BUN/Creatinine Ratio 8, Glucose Level 97, Calcium Level 8.8, Total Bilirubin 1.3H, Aspartate Amino Transf (AST/SGOT) 25, Alanine Aminotransferase (ALT/SGPT) 43, Alkaline Phosphatase 45, Total Protein 7.0, Albumin 3.5 Assessment/Plan Assessment/Plan Assessment/Plan S/P Colon resection --Pt told he must ambulate and continue to use IS 10 times Q1hr. Ok to chew gum (will help stimulate intestinal motility). Pt will be started on soft diet. D/C portillo and start oral pain meds. Stop lovenox Clinical Quality Measures DVT/VTE Risk/Contraindication: Risk Factor Score Per Nursin RFS Level Per Nursing on Admit: 3=High BESS JACKSON DO Apr 03, 2017 10:29
[2017-04-03] MEDS ORDERED: CATHETER FLUSH 10 ML SYR IV PRN (10:45)
[2017-04-03] MEDS: KETOROLAC 30 MG/ML VIAL IVP SCH ×3 (11:02→22:57)
[2017-04-03] MEDS ORDERED: ONDANSETRON 4 MG/2 ML (SDV) Z0FRAN IVP NR (14:45)
[2017-04-03] MEDS: oxyCODONE/APAP 5/325MG (PERCOCET 5) TABLET PO PRN ×2 (14:54→20:29)
--- NOTE | 2017-04-03 15:24 | Physical Therapy Evaluation ---
PT Evaluation-General Medical Diagnosis Admission Date Apr 01, 2017 at 05:56 Medical Diagnosis: diverticulitis Onset Date: Apr 01, 2017 Therapy Diagnosis Therapy Diagnosis: abn gait Height/Weight Height (Feet): 6 Height (Inches): 2.00 Weight (Pounds): 321 Weight (Ounces): 0.0 Precautions Precautions/Isolations: Standard Precautions Referral Physician: Dilan Reason for Referral: Gait Medical History Current History Colon resection due to diverticulitis. Pt not walking much. PT ordered received to encourage pt to walk. 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 Pt answers softly and at times doesnt answer at all. Avoids eye contact. Pain Numeric Pain Scale: 5-Moderate Pain Location: Incisional Location Body Site: Abdomen Comment: "sore" Objective Patient Orientation: Person, Place, Time, Situation Problem Solving: Good Attachments: IV ROM/Strength ROM Lower Extremities WFL Strenght Lower Extremities WFL Integumentary/Posture Integumentary intact Bowel Incontinence: No Bladder Incontinence: No Posture upright; symmetrical Neuromuscular (Tone, Coordination, Reflexes) no noted functional deficits Sensory Vision: Functional Hearing: Functional Hand Dominance: Right Sensation Right Lower Extremit: Intact Sensation Left Lower Extremity: Intact Transfers Functional [place] Measure 0=Not Assessed/NA 4=Minimal Assistance 1=Total Assistance 5=Supervision or Setup 2=Maximal Assistance 6=Modified [place] 3=Moderate Assistance 7=Complete [place] Pt is SBA with bed mobility and transfers. Only needs cues to initiate task. Gait Mode of Locomotion: Walk Gait Assistive Device: None Comments/Gait Description Pt ambulated 200 ft without AD with SBA. Safe gait pattern. Balance Sitting Static: Good Sitting Dynamic: Good Standing Static: Good Standing Dynamic: Good Treatment transfers and gait Assessment/Needs Pt has not been mobilizing much since surgery and surgeon hopes to promote bowel activity with functional mobility. Will follow pt 1-2 days to ensure he is ambulating. 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 Time Frame: Apr 05, 2017 Transfers (B,C,W/C) (FIM): 7 Gait (FIM): 7 PT Plan Problem List Problem List: Activity Tolerance, Functional Strength, Gait, Transfer Treatment/Plan Treatment Plan: Continue Plan of Care Treatment Plan: Bed Mobility, Functional Activity Dominique, Functional Strength, Gait, Safety, Transfers Treatment Duration: Apr 05, 2017 # of days/week 5 Visits Per Week: 5 Pt/Family Agrees w/Plan: Yes Safety Risks/Education Patient Education: Gait Training Teaching Recipient: Patient Teaching Methods: Demonstration, Discussion Response to Teaching: Reinforcement Needed Time/GCodes Time In: 1445 Time Out: 1510 Total Billed Treatment Time: 25 Total Billed Treatment visit EVM 15 GT 10 PHILIPPE BERNARD PT Apr 03, 2017 15:24
[2017-04-03 16:17] VITALS: BP 135/87
[2017-04-04 00:05] VITALS: BP 122/66
[2017-04-04] MEDS: KETOROLAC 30 MG/ML VIAL IVP SCH ×2 (04:08→10:23)
[2017-04-04 08:00] VITALS: BP 127/76
[2017-04-04] MEDS: oxyCODONE/APAP 5/325MG (PERCOCET 5) TABLET PO PRN (08:21)
[2017-04-04] MEDS: LACTATED RINGERS 1,000 ML IV SCH (09:25)
--- NOTE | 2017-04-04 10:00 | Progress Note ---
Subjective Time Seen by Provider: 09:53 Subjective/Events-last exam Pt seen and examined, states pain controlled rates it at a 3. Tolerating diet with nausea. + Flatus, still no BM. Urinating without difficulty. Review of Systems General: No Chills, No Night Sweats Pulmonary: No Cough Cardiovascular: No: Chest Pain Objective Exam Vital Signs Date Time Temp Pulse Resp B/P (MAP) Pulse Ox O2 Delivery O2 Flow Rate FiO2 04/04/17 08:00 97.8 88 20 127/76 93 04/04/17 00:05 97.8 93 20 122/66 91 04/03/17 16:17 98.2 91 20 135/87 93 I & O 04/04/17 07:00 Intake Total 2740 ml Output Total 675 ml Balance 2065 ml Capillary Refill : General Appearance: No Apparent Distress, Obese HEENT: PERRL/EOMI Respiratory: Lungs Clear Cardiovascular: Regular Rate, Rhythm Gastrointestinal: tenderness (diffusely), other (incision is intact, scant bleeding from midline incision) Assessment/Plan Assessment/Plan Assessment/Plan S/P Colon resection --Will D/C pt home, with pain meds. F/U in a week. All questions answered to his satisfaction. Clinical Quality Measures DVT/VTE Risk/Contraindication: Risk Factor Score Per Nursin RFS Level Per Nursing on Admit: 3=High BESS JACKSON DO Apr 04, 2017 10:00
[2017-04-04] MEDS ORDERED: OXYC-471 PO (10:01)
--- NOTE | 2017-04-04 10:02 | Discharge Inst-Surgical ---
Discharge Inst-Surgical Depart Medication/Instructions New, Converted or Re-Newed RX: RX Given to Pt/Family Patient Instructions Follow up Appt: Make appointment for 1 week. [phone] Instructions: No lifting greater than 10 pounds. No strenuous activity. May shower in 24 hours, no tub bath or soaking. Use incentive spirometer at home as directed. No Smoking Skin/Wound Care: May remove bandages. You need to leave the cristin. Symptoms to Report: Appetite Changes, Extremity Discoloration, Numbness/Tingling, Swelling Increased , Bleeding Excessive, Eyesight Changes, Pain Increased, Urine Color Change, Constipation(Persistent), Fever over 101 degree F, Pain/Pressure in chest, Urinating Difficulty, Cough Up/Vomit Blood, Heart Beat Irreg/Pounding, Pain/ Pressure in jaw, Vaginal Bleeding Increase, Cramps in feet or legs, Lightheadedness, Pain/Pressure in shoulder, Diarrhea(Persistent), Memory Changes Suddenly, Questions/Concerns, Weight gain consecutive days, Dizziness/ Fainting, Nausea/Vomiting, Shortness of Breath, Weight gain over 2 pounds If questions or concerns contact your physician Or seek help at emergency department. Activity Activity as Tolerated: Yes Activity Instructions: Avoid Pulling & Pushing, Avoid Stress to Incision Driving Instructions: No Driving/Refer to Dr. Hicks Discharge Diet: No Restrictions If Any Problems/Questions/Issu: Contact Your Physician, Go to Emergency Room Skin/Wound Care Infection Signs and Symptoms: Increased Redness, Foul Odor of Wound, Increased Drainage, Skin Itchy or Has a Rash, Increased Swelling, Temperature Above 101 F Bathing Instructions: Shower Stitches/[place]/Dermabond Dis: Care of BESS Wu DO Apr 04, 2017 10:02
--- NOTE | 2017-04-04 10:23 | Physical Therapy Progress Note ---
Therapy Progress Note Date Seen by Provider: Apr 04, 2017 Time Seen by Provider: 10:15 Pt up in [place] with nursing staff to ambulate. Pt is able to ambulate and push his own IV pole without assist. Pt needs encouragement to walk but no skilled PT intervention necessary. Will dc PT at this time with nursing to continue ambulation. PHILIPPE BERNARD PT Apr 04, 2017 10:23
== END 2017-04-04 10:40 | disposition home or self-care (01) | DRG 330 ==
LOC: 4TH 05:56 → SURG 05:57 → 4TH 13:57 → 3RD 14:25
PROVIDERS: ADMIT Surgery; ATTEND Surgery
PROC: 0DB84ZZ Excision of Small Intestine, Percutaneous Endoscopic Approach (ICD-10-PCS; 2017-04-01)
PROC: 0DTJ4ZZ Resection of Appendix, Percutaneous Endoscopic Approach (ICD-10-PCS; 2017-04-01)
PROC: 0DJD8ZZ Inspection of Lower Intestinal Tract, Via Natural or Artificial Opening Endoscopic (ICD-10-PCS; 2017-04-01)
PROC: 0DBM4ZZ Excision of Descending Colon, Percutaneous Endoscopic Approach (ICD-10-PCS; principal; 2017-04-01 08:14)
PROC: 0DBN4ZZ Excision of Sigmoid Colon, Percutaneous Endoscopic Approach (ICD-10-PCS; 2017-04-01 08:14)
DX: K63.2 Fistula of intestine (principal); K57.32 Diverticulitis of large intestine without perforation or abscess without bleeding; K35.80 Unspecified acute appendicitis; E66.01 Morbid (severe) obesity due to excess calories; Z68.41 Body mass index [BMI] 40.0-44.9, adult; K64.8 Other hemorrhoids; K63.89 Other specified diseases of intestine
CPT/HCPCS: 36415; 80053; 85025; 86850; 86900; 86901; 94664

== ENCOUNTER 2017-05-15 12:07 | Inpatient (IN) | payer BC ==
[~2017-05-15] VITALS: Ht 188 cm; Wt 144.2 kg
[2017-05-15] MEDS ORDERED: NS IV 1000 ML 1,000 ML IV ONE (12:17)
[2017-05-15] MEDS ORDERED: fentaNYL INJECTION 100 MCG/2 ML AMP IVP STA ×3 (12:17→14:40)
[2017-05-15 12:28] LABS: BASOPHILS # (AUTO) 0.1 10^3/uL (0.0-0.1); BASOPHILS % (AUTO) 0 % (0-10); EOSINOPHILS # (AUTO) 0.1 10^3/uL (0.0-0.3); EOSINOPHILS % (AUTO) 1 % (0-10); LYMPHOCYTES # (AUTO) 1.9 X 10^3 (1.0-4.0); LYMPHOCYTES % (AUTO) 13 % (12-44); MEAN CORPUSCULAR HEMOGLOBIN 29 PG (25-34); MEAN CORPUSCULAR HGB CONC 34 G/DL (32-36); MEAN CORPUSCULAR VOLUME 85 FL (80-99); MONOCYTES # (AUTO) 0.8 X 10^3 (0.0-1.0); MONOCYTES % (AUTO) 5 % (0-12); NEUTROPHILS # (AUTO) 11.9 X 10^3 (1.8-7.8); NEUTROPHILS % (AUTO) 81 % (42-75); PLATELET COUNT 323 10^3/uL (130-400); RED BLOOD COUNT 5.36 10^6/uL (4.35-5.85); RED CELL DISTRIBUTION WIDTH 15.3 % (10.0-14.5); WHITE BLOOD COUNT 14.7 10^3/uL (4.3-11.0)
--- NOTE | 2017-05-15 12:31 | ED Abdominal Pain ---
General Chief Complaint: Abdominal/GI Problems Stated Complaint: SWEATING,ABD PAIN History of Present Illness Time Seen By Provider: 12:15 Initial Comments Evaluation for right sided abdominal and flank pain. He had resection of the sigmoid colon and appendectomy April 01, [address] Jackson, he had follow-up with him yesterday and was doing well. He reports he has returned to work and is doing all normal activities. He denies any nausea, vomiting or diarrhea. He did have 2 solid bowel movement this morning. He has had nothing to eat since midnight and has only had one bottle of water to drink today. He reports the abdominal pain makes him diaphoretic causes dyspnea. Timing/Duration: 1-3 Hours Severity/Quality: Moderate (/) Location: RLQ, Flank Radiation: No Radiation Activities at Onset: None Modifying Factors: Improves With Lying down, Improves With Resting Associated Symptoms: Diaphoresis, No Fatigue, No Nausea/Vomiting, No Shortness of Air, No Weakness Allergies and Home Medications Allergies Coded Allergies: cat dander (Verified Allergy, Unknown, 02/11/17) Home Medications Loratadine 10 Mg Tablet, 10 MG PO DAILY PRN for ALLERGIES, (Reported) Pantoprazole Sodium 40 Mg Tablet.dr, 40 MG PO DAILY PRN for ACID REFLUX, ( Reported) Review of Systems Constitutional: see HPI, diaphoresis Gastrointestinal: See HPI, Abdominal Pain, Poor Appetite, Poor Fluid Intake Genitourinary: No Symptoms Reported, See HPI, Denies Hematuria All Other Systems Reviewed Negative Unless Noted: Yes Past Dyshimf-Aujkma-Zpegbv Hx Patient Social History Type Used: Electronic/Vapor Recent Foreign Travel: No Contact w/Someone Who Travel: No Recent Hopitalizations: No Seasonal Allergies Seasonal Allergies: Yes (HAY FEVER) Surgeries HX Surgeries: No Respiratory Hx Respiratory Disorders: No Cardiovascular Hx Cardiac Disorders: No Neurological Hx Neurological Disorders: No Genitourinary Hx Genitourinary Disorders: No Gastrointestinal Gastrointestinal Disorders: Diverticulosis Musculoskeletal Hx Musculoskeletal Disorders: No Endocrine Hx Endocrine Disorders: No HEENT Loss of Vision: Denies Hearing Impairment: Denies Cancer Hx Cancer: No Blood Transfusions Adverse Reaction to a Blood Tr: No Family Medical History Significant Family History: Diabetes, GI Disease Family Medial History: Diabetes mellitus 19 FATHER 19 MOTHER Physical Exam Vital Signs VS - Last 72 Hours, by Label 05/15/17 12:07 Temp 96.5 Pulse 88 Resp 18 B/P (MAP) 142/101 Pulse Ox 94 Capillary Refill : General Appearance: mild distress HEENT: PERRL/EOMI, normal ENT inspection, TMs normal, pharynx normal Neck: non-tender, supple, normal inspection Respiratory: chest non-tender, lungs clear, no respiratory distress Gastrointestinal: soft, abnormal bowel sounds (hypoactive in the right lower quadrant, normoactive in the remaining quadrants.), tenderness (right lower quadrant and flank) Extremities: normal range of motion, non-tender Back: normal inspection, no vertebral tenderness, CVA tenderness (R) Neurologic/Psychiatric: no motor/sensory deficits, alert, normal mood/affect, oriented x 3 Skin: normal color, diaphoresis Lymphatic: no adenopathy Focused Exam Lactic Acid Level Laboratory Tests Test 05/15/17 14:51 Lactic Acid Level 1.70 MMOL/L (0.50-2.00) Progress/Results/Core Measures Results/Orders Lab Results Laboratory Tests Test 05/15/17 12:20 05/15/17 12:30 05/15/17 14:51 Range/Units White Blood Count 14.7 H 4.3-11.0 10^3/uL Red Blood Count 5.36 4.35-5.85 10^6/uL Hemoglobin 15.4 13.3-17.7 G/DL Hematocrit 46 40-54 % Mean Corpuscular Volume 85 80-99 FL Mean Corpuscular Hemoglobin 29 25-34 PG Mean Corpuscular Hemoglobin Concent 34 32-36 G/DL Red Cell Distribution Width 15.3 H 10.0-14.5 % Platelet Count 323 130-400 10^3/uL Mean Platelet Volume 10.0 7.4-10.4 FL Neutrophils (%) (Auto) 81 H 42-75 % Lymphocytes (%) (Auto) 13 12-44 % Monocytes (%) (Auto) 5 0-12 % Eosinophils (%) (Auto) 1 0-10 % Basophils (%) (Auto) 0 0-10 % Neutrophils # (Auto) 11.9 H 1.8-7.8 X 10^3 Lymphocytes # (Auto) 1.9 1.0-4.0 X 10^3 Monocytes # (Auto) 0.8 0.0-1.0 X 10^3 Eosinophils # (Auto) 0.1 0.0-0.3 10^3/uL Basophils # (Auto) 0.1 0.0-0.1 10^3/uL Neutrophils % (Manual) 80 % Lymphocytes % (Manual) 11 % Monocytes % (Manual) 7 % Band Neutrophils 2 % Sodium Level 141 135-145 MMOL/L Potassium Level 4.8 3.6-5.0 MMOL/L Chloride Level 108 H 98-107 MMOL/L Carbon Dioxide Level 21 21-32 MMOL/L Anion Gap 12 5-14 MMOL/L Blood Urea Nitrogen 9 7-18 MG/DL Creatinine 0.77 0.60-1.30 MG/DL Estimat Glomerular Filtration Rate > 60 BUN/Creatinine Ratio 12 Glucose Level 110 H 70-105 MG/DL Calcium Level 9.3 8.5-10.1 MG/DL Total Bilirubin 0.5 0.1-1.0 MG/DL Aspartate Amino Transf (AST/SGOT) 48 H 5-34 U/L Alanine Aminotransferase (ALT/SGPT) 77 H 0-55 U/L Alkaline Phosphatase 59 40-136 U/L Total Protein 8.6 H 6.4-8.2 GM/DL Albumin 4.3 3.2-4.5 GM/DL Urine Color YELLOW Urine Clarity CLEAR Urine pH 5 5-9 Urine Specific [place] 1.025 H 1.016-1.022 Urine Protein NEGATIVE NEGATIVE Urine Glucose (UA) NEGATIVE NEGATIVE Urine Ketones NEGATIVE NEGATIVE Urine Nitrite NEGATIVE NEGATIVE Urine Bilirubin NEGATIVE NEGATIVE Urine Urobilinogen NORMAL NORMAL MG/DL Urine Leukocyte Esterase NEGATIVE NEGATIVE Urine RBC (Auto) NEGATIVE NEGATIVE Urine RBC NONE /HPF Urine WBC RARE /HPF Urine Squamous Epithelial Cells 0-2 /HPF Urine Crystals NONE /LPF Urine Bacteria TRACE /HPF Urine Casts NONE /LPF Urine Mucus MODERATE H /LPF Urine Culture Indicated NO Lactic Acid Level 1.70 0.50-2.00 MMOL/L Ammonia 31 11-32 UMOL/L Amylase Level 29 25-125 U/L Lipase 10 8-78 U/L My Orders Orders - JIHAN ANTHONY Cbc With Automated Diff (05/15/17 12:17) Comprehensive Metabolic Panel (05/15/17 12:17) Ua Culture If Indicated (05/15/17 12:17) Saline Lock/Iv-Start (05/15/17 12:17) Ns Iv 1000 Ml (Sodium Chloride 0.9%) (05/15/17 12:17) Fentanyl Injection (Sublimaze Injection (05/15/17 12:17) Abdomen/Kub 1view (05/15/17 12:23) Manual Differential (05/15/17 12:20) Ct Abdomen/Pelvis W (05/15/17 13:15) Fentanyl Injection (Sublimaze Injection (05/15/17 13:16) Iohexol Injection (Omnipaque 350 Mg/Ml 1 (05/15/17 13:30) Sodium Chloride Flush (Catheter Flush Sy (05/15/17 13:30) Ns (Ivpb) (Sodium Chloride 0.9% Ivpb Bag (05/15/17 13:30) Ammonia (05/15/17 13:59) Amylase (05/15/17 13:59) Lipase (05/15/17 13:59) Blood Culture (05/15/17 13:59) Lactic Acid Analyzer (05/15/17 13:59) Fentanyl Injection (Sublimaze Injection (05/15/17 14:40) Medications Given in ED Current Medications Medications Dose Ordered Sig/Sharon Route Start Time Stop Time Status Last Admin Dose Admin Iohexol 100 ml ONCE ONCE IV 05/15/17 13:30 05/15/17 13:31 DC 05/15/17 13:32 100 ML Sodium Chloride 100 ml ONCE ONCE IV 05/15/17 13:30 05/15/17 13:31 DC 05/15/17 13:32 80 ML Sodium Chloride 1,000 ml @ 0 mls/hr Q0M ONCE IV 05/15/17 12:17 05/15/17 12:19 DC 05/15/17 12:25 1,000 MLS/HR Vital Signs/I&O Vital Sign - Last 12Hours 05/15/17 12:07 Temp 96.5 Pulse 88 Resp 18 B/P (MAP) 142/101 Pulse Ox 94 Progress Note : Time: 12:15 Progress Note Initial evaluation completed, will obtain a KUB, CBC, CMP and UA. Reviewed Op reports from 04/01/17 POSTOPERATIVE DIAGNOSES: 1. Colovesical fistula. 2. Diverticulitis. 3. Firm, indurated small intestine. 4. Appendix with thickened base and possible erythematous tip. 5. Intestinal distention. PROCEDURES: 1. Colon resection with primary anastomosis. 2. Small bowel resection. 3. Appendectomy. 4. Enterotomy. 5. Takedown of splenic flexure. 1220 WBC 14.7 with neutrophils 81%, lymph 13%, monocytes 5%, platelets 323, hemoglobin 15.4, hematocrit 46. Chemistry and urine essentially normal. KUB shows a 6 mm stone on the right. Previous CTs from January 2017 showed a 4 mm nonobstructing stone on the right. 1300 patient continues to have lower right abdominal pain. Reports the pain spasms that come and go. With elevated white count we'll obtain CT abdomen and pelvis with contrast. 1400 Temp 99.6 patient's assessment, diagnostic studies and care have been reviewed and agreed upon by Dr. Pepper. 1430 Dr. Jackson present, review CT. 1445 Dr. Jackson to plan admission for patient. Diagnostic Imaging Diagonstic Imaging: Xray Plain Films/CT/US/NM/MRI: abdomen Comments NAME: WON [facility] REC#: [id number] PT STATUS: REG ER : 1990 PHYSICIAN: JIHAN ANTHONY ADMIT DATE: 05/15/17/ER Draft Date of Exam:05/15/17 ABDOMEN/KUB 1VIEW Supine view of the abdomen. INDICATION: Right lower quadrant pain. FINDINGS: There is a small to moderate amount of fecal material in the right colon. There is a 6 mm calcification projecting over the right flank. This could potentially relate to a right kidney stone. No significantly dilated bowel loops are seen. IMPRESSION: 6 mm opacification in the right flank could relate to a kidney stone. Dictated on workstation # [id number] Dict: 05/15/17 1337 Trans: 05/15/17 1342 [facility] [id number] Interpreted by: MANE CHADWICK MD Electronically signed by: Reviewed: Reviewed by Me Diagonstic Imaging: CT Plain Films/CT/US/NM/MRI: abdomen, pelvis Comments NAME: WON MO[facility] REC#: [id number] PT STATUS: REG ER : 1990 PHYSICIAN: JIHAN ANTHONY ADMIT DATE: 05/15/17/ER Draft Date of Exam:05/15/17 CT ABDOMEN/PELVIS W PROCEDURE: CT abdomen and pelvis with contrast. TECHNIQUE: Multiple contiguous axial images were obtained through the abdomen and pelvis after administration of intravenous contrast. INDICATION: Recent abdominal surgery. Right lower quadrant abdominal pain. COMPARISON: 02/14/2017 FINDINGS: Included views of the lung bases are clear. CT abdomen: There is evidence of small bowel obstruction. There is abnormal distended loop of distal small bowel within the right lower abdominal quadrant. At its widest, the small bowel measures approximately 5 cm in diameter. There is suggestion of focal transition point adjacent to surgical suture material (image 64, series 2). Small bowel distal to this is decompressed. Small bowel proximal to this shows gradual tapering to normal caliber. There is small amount of free fluid and free air within the right lower abdominal quadrant. No distinct loculated air-fluid collections are identified. Normal appendix cannot be adequately identified. Nonobstructive right renal calculus is noted. Otherwise, the kidneys, adrenal glands, spleen, pancreas, and liver have a normal CT appearance. No abnormal mesenteric or retroperitoneal adenopathy is seen. Bony structures show no acute abnormalities. CT pelvis: Urinary bladder is grossly unremarkable. There is no loculated fluid collection, free fluid, nor free air within the pelvis. No abnormal lymph nodes are seen. Bony structures show no acute abnormalities. IMPRESSION: 1. Findings consistent with distal small bowel obstruction with probable focal transition point in the right lower abdominal quadrant. 2. Small amount of free fluid and free air within the right lower abdominal quadrant concerning for underlying perforation. 3. Nonobstructive right renal calculus. Results were discussed with Jihan Anthony by Dr. Emmanuel at 1355 hrs. on 05/15/2017. Dictated on workstation # [id number] Dict: 05/15/17 1345 Trans: 05/15/17 1402 [facility] [id number] Interpreted by: MENDEZ EMMANUEL Electronically signed by: Reviewed: Reviewed by Me, Reviewed/Discussed (with radiologist Dr. Pepper and Dr. Jackson.) Departure Impression Impression: Primary Impression: Partial small bowel obstruction Additional Impression: Abdominal wall pain Disposition: ADMITTED INPATIENT Condition: Stable Decision to Admit Reason: Admit from ER (General) Decision to Admit/Date: May 15, 2017 Time/Decision to Admit Time: 14:45 Departure-Patient Inst. Referrals: GILDARDO VALERA MD (PCP) Primary Care Physician Copy Copies To 1: GILDARDO VALERA MD Copies To 2: BESS JACKSON AMY ARNP May 15, 2017 12:31
[2017-05-15 12:36] LABS: BILIRUBIN,URINE NEGATIVE (NEGATIVE); KETONES,URINE NEGATIVE (NEGATIVE); LEUKOCYTE ESTERASE ,URINE NEGATIVE (NEGATIVE); NITRITE,URINE NEGATIVE (NEGATIVE); PH,URINE 5 (5-9); PROTEIN,URINE NEGATIVE (NEGATIVE); UROBILINOGEN,URINE NORMAL (NORMAL)
[2017-05-15 12:48] LABS: SQUAMOUS EPITHELIAL CELL,UR 0-2 /HPF; WBC,URINE RARE /HPF
[2017-05-15 12:55] LABS: ALANINE AMINOTRANSFERASE 77 U/L (0-55); ALBUMIN 4.3 GM/DL (3.2-4.5); ANION GAP 12 MMOL/L (5-14); ASPARTATE AMINO TRANSFERASE 48 U/L (5-34); BILIRUBIN,TOTAL 0.5 MG/DL (0.1-1.0); BLOOD UREA NITROGEN 9 MG/DL (7-18); BUN/CREATININE RATIO 12; CALCIUM 9.3 MG/DL (8.5-10.1); CARBON DIOXIDE 21 MMOL/L (21-32); CHLORIDE 108 MMOL/L (98-107); CREATININE SERUM 0.77 MG/DL (0.60-1.30); GFR ESTIMATED > 60; GLUCOSE 110 MG/DL (70-105); POTASSIUM 4.8 MMOL/L (3.6-5.0); SODIUM 141 MMOL/L (135-145); TOTAL PROTEIN 8.6 GM/DL (6.4-8.2)
[2017-05-15 13:01] LABS: BAND NEUTROPHILS 2 %; LYMPHOCYTES % (MANUAL) 11 %; NEUTROPHILS % (MANUAL) 80 %
[2017-05-15] MEDS ORDERED: IOHEXOL 350 MG/ML 100 ML (OMNIPAQUE 350) VIAL IV ONE (13:30)
[2017-05-15] MEDS ORDERED: CATHETER FLUSH 10 ML SYR IV PRN ×2 (13:30→15:30)
[2017-05-15] MEDS ORDERED: NS 100 ML (IVPB) BAG IV ONE (13:30)
--- NOTE | 2017-05-15 13:43 | Diagnostic Imaging Report ---
Supine view of the abdomen. INDICATION: Right lower quadrant pain. FINDINGS: There is a small to moderate amount of fecal material in the right colon. There is a 6 mm calcification projecting over the right flank. This could potentially relate to a right kidney stone. No significantly dilated bowel loops are seen. IMPRESSION: 6 mm opacification in the right flank could relate to a kidney stone. Dictated by: Dictated on workstation # [id number]
--- NOTE | 2017-05-15 14:02 | Diagnostic Imaging Report ---
PROCEDURE: CT abdomen and pelvis with contrast. TECHNIQUE: Multiple contiguous axial images were obtained through the abdomen and pelvis after administration of intravenous contrast. INDICATION: Recent abdominal surgery. Right lower quadrant abdominal pain. COMPARISON: 02/14/2017 FINDINGS: Included views of the lung bases are clear. CT abdomen: There is evidence of small bowel obstruction. There is abnormal distended loop of distal small bowel within the right lower abdominal quadrant. At its widest, the small bowel measures approximately 5 cm in diameter. There is suggestion of focal transition point adjacent to surgical suture material (image 64, series 2). Small bowel distal to this is decompressed. Small bowel proximal to this shows gradual tapering to normal caliber. There is small amount of free fluid and free air within the right lower abdominal quadrant. No distinct loculated air-fluid collections are identified. Normal appendix cannot be adequately identified. Nonobstructive right renal calculus is noted. Otherwise, the kidneys, adrenal glands, spleen, pancreas, and liver have a normal CT appearance. No abnormal mesenteric or retroperitoneal adenopathy is seen. Bony structures show no acute abnormalities. CT pelvis: Urinary bladder is grossly unremarkable. There is no loculated fluid collection, free fluid, nor free air within the pelvis. No abnormal lymph nodes are seen. Bony structures show no acute abnormalities. IMPRESSION: 1. Findings consistent with distal small bowel obstruction with probable focal transition point in the right lower abdominal quadrant. 2. Small amount of free fluid and free air within the right lower abdominal quadrant concerning for underlying perforation. 3. Nonobstructive right renal calculus. Results were discussed with Jihan Bauer by Dr. Hernandez at 1355 hrs. on 05/15/2017. Dictated by: Dictated on workstation # [id number]
[2017-05-15] MEDS ORDERED: ONDANSETRON 4 MG/2 ML (SDV) Z0FRAN IVP PRN (15:00)
--- NOTE | 2017-05-15 15:10 | History & Physical-Surgical ---
History of Present Illness History of Present Illness Reason for visit/HPI HPI: Pt presented to the ER for evaluation for right sided abdominal and flank pain. He has hx of Sigmoid colon resection, with SBR and appendectomy April 01, 2017. I just saw him yesterday and he looked better than he had at any previous visit. He has returned to work and was doing all normal activities. He denies any nausea vomiting or diarrhea. He did have 2 solid bowel movement this morning. He has had nothing to eat since midnight and has only had one bottle of water to drink today. He reports sudden onset of abdominal pain in the right flank/RLQ that made him diaphoretic and caused dyspnea. Timing/Duration: 1-3 Hours Severity/Quality: Moderate (6/10) Location: RLQ, Flank Radiation: No Radiation Activities at Onset: None Modifying Factors: Improves With Lying down, Improves With Resting Associated Symptoms: Diaphoresis, No Fatigue, No Nausea/Vomiting, No SOB, No Weakness Date of Admission May 15, 2017 at 14:56 Time Seen by Provider: 14:49 I consulted on this patient on 05/15/17 15:05 Attending Physician Jos Kong DO Admitting Physician Yao Moreira MD Consult Allergies and Home Medications Allergies Coded Allergies: cat dander (Verified Allergy, Unknown, 02/11/17) Home Medications No Active Prescriptions or Reported Meds Past Dnyazsz-Fvpmgi-Pdorkj Hx Patient Social History Alcohol Use: Denies Use Recreational Drug Use: No Smoking Status: Former Smoker Type Used: Electronic/Vapor Recent Foreign Travel: No Contact w/Someone Who Travel: No Recent Infectious Disease Expo: No Recent Hopitalizations: Yes (ABD SURG) Immunizations Up To Date Tetanus Booster (TDap): Unknown Seasonal Allergies Seasonal Allergies: Yes (HAY FEVER) Surgeries HX Surgeries: No Surgeries: Abdominal Respiratory Hx Respiratory Disorders: No Cardiovascular Hx Cardiac Disorders: No Neurological Hx Neurological Disorders: No Genitourinary Hx Genitourinary Disorders: No Gastrointestinal Gastrointestinal Disorders: Diverticulosis Musculoskeletal Hx Musculoskeletal Disorders: No Endocrine Hx Endocrine Disorders: No HEENT Loss of Vision: Denies Hearing Impairment: Denies Cancer Hx Cancer: No Psychosocial Hx Psychiatric Problems: No Behavioral Health Disorders: Violent Behavior Blood Transfusions Adverse Reaction to a Blood Tr: No Family Medical History Significant Family History: Diabetes, GI Disease Family Medial History: Diabetes mellitus 19 FATHER 19 MOTHER Constitutional: diaphoresis, malaise, weakness EENTM: No blurred vision, No ear discharge, No epistaxis, No hearing loss, No mouth swelling, No throat swelling Respiratory: No cough, dyspnea on exertion, No hemoptysis, No short of breath Cardiovascular: No chest pain, No palpitations Gastrointestinal: RLQ, No diarrhea, No melena, No nausea, No vomiting Genitourinary: No dysuria, No frequency, No hematuria Musculoskeletal: back pain, muscle stiffness, No muscle weakness Skin: No change in color, No change in hair/nails, No rash Psychiatric/Neurological: Denies Anxiety, Denies Depressed, Denies Seizure, Denies Tremors, Denies Weakness Other no recurrent illnesses, no heat or cold intolerance, no abnormal bruising or bleeding Physical Exam Vital Signs Vital Sign - Last 12Hours 05/15/17 12:07 Temp 96.5 Pulse 88 Resp 18 B/P (MAP) 142/101 Pulse Ox 94 Capillary Refill : Less Than 3 Seconds General Appearance: WD/WN, Mild Distress Eyes: Bilateral Eye EOMI, Bilateral Eye PERRL HEENT: Pharynx Normal, No Pale Conjunctivae (L), No Pale Conjunctivae (R), No Scleral Icterus (L), No Scleral Icterus (R) Neck: Full Range of Motion, Normal Inspection, Non Tender, Supple Respiratory: Chest Non Tender, Lungs Clear, Normal Breath Sounds, No Accessory Muscle Use, No Respiratory Distress Cardiovascular: Regular Rate, Rhythm, No Edema, No Murmur, Normal Peripheral Pulses Gastrointestinal: No Organomegaly, Soft, Tenderness (in RLQ), Other (incision healing, still some skin level opening) Rectal: Deferred Extremity: Normal Capillary Refill, Normal Inspection, Normal Range of Motion, Non Tender, No Calf Tenderness Neurologic/Psychiatric: Alert, Oriented x3, No Motor/Sensory Deficits, Normal 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, 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 Skin: Normal Color, Damp, Diaphoresis Lymphatic: No Adenopathy (neck, axilla or groin) Data Review Labs Laboratory Tests 05/15/17 12:20: White Blood Count 14.7H, Red Blood Count 5.36, Hemoglobin 15.4, Hematocrit 46, Mean Corpuscular Volume 85, Mean Corpuscular Hemoglobin 29, Mean Corpuscular Hemoglobin Concent 34, Red Cell Distribution Width 15.3H, Platelet Count 323, Mean Platelet Volume 10.0, Neutrophils (%) (Auto) 81H, Lymphocytes (%) (Auto) 13 , Monocytes (%) (Auto) 5, Eosinophils (%) (Auto) 1, Basophils (%) (Auto) 0, Neutrophils # (Auto) 11.9H, Lymphocytes # (Auto) 1.9, Monocytes # (Auto) 0.8, Eosinophils # (Auto) 0.1, Basophils # (Auto) 0.1, Neutrophils % (Manual) 80, Lymphocytes % (Manual) 11, Monocytes % (Manual) 7, Band Neutrophils 2, Sodium Level 141, Potassium Level 4.8, Chloride Level 108H, Carbon Dioxide Level 21, Anion Gap 12, Blood Urea Nitrogen 9, Creatinine 0.77, Estimat Glomerular Filtration Rate > 60, BUN/Creatinine Ratio 12, Glucose Level 110H, Calcium Level 9.3, Total Bilirubin 0.5, Aspartate Amino Transf (AST/SGOT) 48H, Alanine Aminotransferase (ALT/SGPT) 77H, Alkaline Phosphatase 59, Total Protein 8.6H, Albumin 4.3 05/15/17 12:30: Urine Color YELLOW, Urine Clarity CLEAR, Urine pH 5, Urine Specific [place] 1.025H, Urine Protein NEGATIVE, Urine Glucose (UA) NEGATIVE, Urine Ketones NEGATIVE, Urine Nitrite NEGATIVE, Urine Bilirubin NEGATIVE, Urine Urobilinogen NORMAL, Urine Leukocyte Esterase NEGATIVE, Urine RBC (Auto) NEGATIVE, Urine RBC NONE, Urine WBC RARE, Urine Squamous Epithelial Cells 0-2, Urine Crystals NONE, Urine Bacteria TRACE, Urine Casts NONE, Urine Mucus MODERATEH, Urine Culture Indicated NO 05/15/17 14:51: Assessment/Plan Assessment/Plan Assessment/Plan 1. RLQ pain 2. PSBO on CT 3. Questionable perforation of intestine on CT 4. Elevated WBC 5. Non-obstructive Renal calculi Plan is admit, NPO, IV fluids, pain control. I discussed CT findings with Radiologist, we are not convinced it is perforation, could just be small piece of bowel at anastomosis. Therefore had pt take PO CT contrast, will get KUB in 2 hours and if looks like contrast has made it to TI area....will repeat CT. If it is true perforation may then need IR help for percutaneous drainage. [facility]. Will repeat labs in am. JOS KONG DO May 15, 2017 15:10
[2017-05-15 15:15] VITALS: BP 117/60
[2017-05-15 15:17] LABS: AMMONIA 31 UMOL/L (11-32); AMYLASE 29 U/L (25-125); LIPASE 10 U/L (8-78)
[2017-05-15] MEDS: LACTATED RINGERS 1,000 ML IV SCH ×2 (15:29→22:29)
[2017-05-15] MEDS: KETOROLAC 30 MG/ML VIAL IVP SCH ×2 (15:30→20:21)
[2017-05-15] MEDS ORDERED: DIATRIZOATE MEGLUM/SODIUM 37% 120 ML (GASTROGRAFIN) PO ONE (15:30)
[2017-05-15] MEDS ORDERED: LORA10TA7 PO (15:32)
[2017-05-15] MEDS ORDERED: PANT40TA2 PO (15:32)
[2017-05-15] MEDS: morphine INJ 10 MG/ML 1ML (SYR OR VIAL) IVP PRN ×4 (15:54→22:29)
--- NOTE | 2017-05-15 17:00 | Diagnostic Imaging Report ---
CLINICAL INDICATION: Patient with history of right kidney stone. Patient also has a history of distal small bowel obstruction seen on a comparison CT scan. EXAM: KUB x-ray. COMPARISON: CT scan of the abdomen and pelvis with contrast and KUB x-ray dated 05/15/2017. FINDINGS: There is interval progression of dilated loops of small bowel overlying the left and mid abdominal region, consistent with a small bowel obstruction. There is no intra-abdominal free air. There is excreted IV contrast within the bilateral renal calyces and bladder. The previously seen right renal stone is not evidenced on this exam and is likely obscured from excreted contrast. The remainder of this exam shows no significant interval change compared to the prior study of comparison. IMPRESSION: 1. Interval worsening of the dilated loops of small bowel overlying the mid left abdomen, consistent with the patient's history of small bowel obstruction. 2. The previously seen right renal stone is likely obscured by excreted contrast within the right kidney. Dictated by: Dictated on workstation # [id number]
[2017-05-15 19:13] VITALS: BP 127/76
--- NOTE | 2017-05-15 21:33 | Diagnostic Imaging Report ---
PROCEDURE: CT abdomen and pelvis without contrast. TECHNIQUE: Multiple contiguous axial images were obtained through the abdomen and pelvis without the use of intravenous contrast. INDICATION: Small bowel obstruction. Free intraperitoneal fluid and air. COMPARISON: CT abdomen and pelvis with IV contrast 05/15/2017 at 1:36 PM. FINDINGS: Since earlier today, there is mildly increasing free intraperitoneal fluid in the right lower quadrant. Locules of gas free and intraperitoneal air relatively stable. Enteric contrast has been administered. There is no focal enteric contrast leak identified. The distal ileum is markedly narrowed immediately superior to the bladder. There are a few moderately distended loops of small bowel in the central anterior abdomen. Small bowel anastomosis in the right lower quadrant appears patent. Enteric contrast has reached the mid transverse colon. Atelectasis in the lung bases. The liver, gallbladder, pancreas, spleen, adrenals, kidneys and collecting systems are unremarkable. No lymphadenopathy. Osseous structures are unremarkable. IMPRESSION: 1. There is only mildly increased free intraperitoneal fluid in the right lower quadrant. The small locules of free intraperitoneal air relatively stable. 2. Enteric contrast has been administered and reaches the transverse colon. There is no evidence of an enteric contrast leak. 3. Markedly narrowed distal ileum immediately superior to the bladder. There are a few moderately distended loops of small bowel in the mid upper abdomen. Dictated by: Dictated on workstation # [id number]
[2017-05-15] MEDS ORDERED: ACETAMINOPHEN 500 MG TAB (TYLENOL) ONE (22:20)
[2017-05-15] MEDS: ACETAMINOPHEN 500 MG TAB (TYLENOL) PO PRN (22:29)
[2017-05-15] MEDS ORDERED: IBUPROFEN 600 MG (MOTRIN) TAB PO ONE (23:50)
[2017-05-16] VITALS (10 sets, daily range): BP systolic 101–117; BP diastolic 46–78
[2017-05-16] MEDS ORDERED: IBUPROFEN 600 MG (MOTRIN) TAB PO PRN
[2017-05-16] MEDS: morphine INJ 10 MG/ML 1ML (SYR OR VIAL) IVP PRN ×5 (00:46→23:37)
[2017-05-16] MEDS: PIPERACILLIN SODIUM/TAZOBACTAM 4.5 GM in NS (IVPB) 100 ML IV SCH ×3 (00:47→15:39)
[2017-05-16] MEDS: KETOROLAC 30 MG/ML VIAL IVP SCH ×4 (03:19→20:56)
[2017-05-16] MEDS: LACTATED RINGERS 1,000 ML IV SCH ×3 (05:38→17:39)
[2017-05-16 06:24] LABS: BASOPHILS % (AUTO) 0 % (0-10); EOSINOPHILS % (AUTO) 0 % (0-10); LYMPHOCYTES # (AUTO) 1.5 X 10^3 (1.0-4.0); LYMPHOCYTES % (AUTO) 8 % (12-44); MEAN CORPUSCULAR HEMOGLOBIN 29 PG (25-34); MEAN CORPUSCULAR HGB CONC 33 G/DL (32-36); MEAN CORPUSCULAR VOLUME 86 FL (80-99); MEAN PLATELET VOLUME 9.9 FL (7.4-10.4); MONOCYTES # (AUTO) 1.1 X 10^3 (0.0-1.0); MONOCYTES % (AUTO) 6 % (0-12); NEUTROPHILS # (AUTO) 16.1 X 10^3 (1.8-7.8); NEUTROPHILS % (AUTO) 86 % (42-75); PLATELET COUNT 248 10^3/uL (130-400); RED BLOOD COUNT 4.93 10^6/uL (4.35-5.85); RED CELL DISTRIBUTION WIDTH 15.4 % (10.0-14.5); WHITE BLOOD COUNT 18.8 10^3/uL (4.3-11.0)
[2017-05-16 06:45] LABS: ALANINE AMINOTRANSFERASE 51 U/L (0-55); ALBUMIN 3.5 GM/DL (3.2-4.5); ANION GAP 9 MMOL/L (5-14); ASPARTATE AMINO TRANSFERASE 24 U/L (5-34); BILIRUBIN,TOTAL 1.9 MG/DL (0.1-1.0); BLOOD UREA NITROGEN 11 MG/DL (7-18); BUN/CREATININE RATIO 14; CALCIUM 8.8 MG/DL (8.5-10.1); CARBON DIOXIDE 23 MMOL/L (21-32); CHLORIDE 107 MMOL/L (98-107); CREATININE SERUM 0.79 MG/DL (0.60-1.30); GFR ESTIMATED > 60; GLUCOSE 108 MG/DL (70-105); POTASSIUM 3.7 MMOL/L (3.6-5.0); SODIUM 139 MMOL/L (135-145); TOTAL PROTEIN 6.6 GM/DL (6.4-8.2)
--- NOTE | 2017-05-16 07:18 | Diagnostic Imaging Report ---
INDICATION: Fever. COMPARISON: CT abdomen and pelvis of 05/15/17. FINDINGS: There are bibasilar bandlike opacities. No pleural effusion or pneumothorax. Heart is normal in size. Normal pulmonary vasculature. IMPRESSION: Bibasilar opacities have bandlike configuration most compatible with atelectasis. A superimposed pneumonia is thought less likely but could have this appearance. Dictated by: Dictated on workstation # [id number]
[2017-05-16] MEDS: PANTOPRAZOLE 40 MG/10 ML (PROTONIX) VIAL IV SCH (08:04)
--- NOTE | 2017-05-16 10:25 | Progress Note ---
Subjective Time Seen by Provider: 09:22 Subjective/Events-last exam Pt seen and examined, events of last night noted. Pt states he feels better now , minimal abdominal pain. Denies nausea or vomiting. No diarrhea. Has not had chills since around midnight. Review of Systems General: Chills, Night Sweats HEENT: Head Aches, No Visual Changes Pulmonary: No Dyspnea, No Cough Cardiovascular: No: Chest Pain, Palpitations Gastrointestinal: Abdominal Pain, No: Diarrhea, Nausea, Vomiting Neurological: Weakness, No: Change in speech, Seizures Objective Exam Vital Signs Date Time Temp Pulse Resp B/P (MAP) Pulse Ox O2 Delivery O2 Flow Rate FiO2 05/16/17 09:00 93 Room Air 05/16/17 07:19 98.1 90 20 117/46 93 Room Air 05/16/17 05:38 98.0 05/16/17 04:00 100.6 114 22 103/54 92 Room Air 05/16/17 01:20 99.6 05/16/17 00:15 125 20 109/55 94 Room Air 05/16/17 00:00 101.9 124 21 106/57 93 Room Air 05/15/17 23:20 101.9 05/15/17 22:29 101.8 05/15/17 20:58 101.7 05/15/17 20:21 102.4 05/15/17 20:20 Room Air 05/15/17 19:13 100.0 99 18 127/76 95 Room Air 05/15/17 15:15 96.5 91 18 117/60 95 Room Air 05/15/17 15:06 88 18 99 05/15/17 12:07 96.5 88 18 142/101 94 I & O 05/16/17 06:59 Intake Total 3100 ml Balance 3100 ml Capillary Refill : Less Than 3 Seconds General Appearance: WD/WN, Mild Distress HEENT: Pharynx Normal, No Pale Conjunctivae (L), No Pale Conjunctivae (R), No Scleral Icterus (L), No Scleral Icterus (R) Neck: Full Range of Motion, Normal Inspection, Non Tender, Supple Respiratory: Chest Non Tender, Lungs Clear, Normal Breath Sounds, No Accessory Muscle Use, No Respiratory Distress Cardiovascular: Regular Rate, Rhythm, No Edema, No Murmur, Normal Peripheral Pulses Gastrointestinal: soft, abnormal bowel sounds (hypoactive in the right lower quadrant, normoactive in the remaining quadrants.), tenderness (right lower quadrant and flank) Extremity: Normal Capillary Refill, Normal Inspection, Normal Range of Motion, Non Tender, No Calf Tenderness Neurologic/Psychiatric: Alert, Oriented x3, No Motor/Sensory Deficits, Normal Mood/Affect, consulting solution manager II-XII Norm as Tested Skin: Normal Color, Damp, Diaphoresis Lymphatic: No Adenopathy (neck, axilla or groin) Results Lab Laboratory Tests 05/15/17 12:20: White Blood Count 14.7H, Red Blood Count 5.36, Hemoglobin 15.4, Hematocrit 46, Mean Corpuscular Volume 85, Mean Corpuscular Hemoglobin 29, Mean Corpuscular Hemoglobin Concent 34, Red Cell Distribution Width 15.3H, Platelet Count 323, Mean Platelet Volume 10.0, Neutrophils (%) (Auto) 81H, Lymphocytes (%) (Auto) 13 , Monocytes (%) (Auto) 5, Eosinophils (%) (Auto) 1, Basophils (%) (Auto) 0, Neutrophils # (Auto) 11.9H, Lymphocytes # (Auto) 1.9, Monocytes # (Auto) 0.8, Eosinophils # (Auto) 0.1, Basophils # (Auto) 0.1, Neutrophils % (Manual) 80, Lymphocytes % (Manual) 11, Monocytes % (Manual) 7, Band Neutrophils 2, Sodium Level 141, Potassium Level 4.8, Chloride Level 108H, Carbon Dioxide Level 21, Anion Gap 12, Blood Urea Nitrogen 9, Creatinine 0.77, Estimat Glomerular Filtration Rate > 60, BUN/Creatinine Ratio 12, Glucose Level 110H, Calcium Level 9.3, Total Bilirubin 0.5, Aspartate Amino Transf (AST/SGOT) 48H, Alanine Aminotransferase (ALT/SGPT) 77H, Alkaline Phosphatase 59, Total Protein 8.6H, Albumin 4.3 05/15/17 12:30: Urine Color YELLOW, Urine Clarity CLEAR, Urine pH 5, Urine Specific [place] 1.025H, Urine Protein NEGATIVE, Urine Glucose (UA) NEGATIVE, Urine Ketones NEGATIVE, Urine Nitrite NEGATIVE, Urine Bilirubin NEGATIVE, Urine Urobilinogen NORMAL, Urine Leukocyte Esterase NEGATIVE, Urine RBC (Auto) NEGATIVE, Urine RBC NONE, Urine WBC RARE, Urine Squamous Epithelial Cells 0-2, Urine Crystals NONE, Urine Bacteria TRACE, Urine Casts NONE, Urine Mucus MODERATEH, Urine Culture Indicated NO 05/15/17 14:51: Lactic Acid Level 1.70, Ammonia 31, Amylase Level 29, Lipase 10 05/16/17 00:28: Lactic Acid Level 1.46 05/16/17 05:55: White Blood Count 18.8H, Red Blood Count 4.93, Hemoglobin 14.1, Hematocrit 43, Mean Corpuscular Volume 86, Mean Corpuscular Hemoglobin 29, Mean Corpuscular Hemoglobin Concent 33, Red Cell Distribution Width 15.4H, Platelet Count 248, Mean Platelet Volume 9.9, Neutrophils (%) (Auto) 86H, Lymphocytes (%) (Auto) 8L , Monocytes (%) (Auto) 6, Eosinophils (%) (Auto) 0, Basophils (%) (Auto) 0, Neutrophils # (Auto) 16.1H, Lymphocytes # (Auto) 1.5, Monocytes # (Auto) 1.1H, Eosinophils # (Auto) 0.0, Basophils # (Auto) 0.0, Sodium Level 139, Potassium Level 3.7, Chloride Level 107, Carbon Dioxide Level 23, Anion Gap 9, Blood Urea Nitrogen 11, Creatinine 0.79, Estimat Glomerular Filtration Rate > 60, BUN/ Creatinine Ratio 14, Glucose Level 108H, Calcium Level 8.8, Total Bilirubin 1.9H , Aspartate Amino Transf (AST/SGOT) 24, Alanine Aminotransferase (ALT/SGPT) 51, Alkaline Phosphatase 42, Total Protein 6.6, Albumin 3.5 Assessment/Plan Assessment/Plan Assessment/Plan 1. RLQ pain with Pyrexia 2. PSBO - seems to be resolving, contrast through area and into transverse colon 3. Perforation of intestine....unsure site - plan to drain fluid and get culture , leave drain 4. Elevated WBC - started on IV Zosyn and blood cultures obtained 5. Non-obstructive Renal calculi Plan is continue NPO, IV fluids, pain control. IV ABX, CT guided drainage, await culture results. Will repeat labs in am. Clinical Quality Measures DVT/VTE Risk/Contraindication: Risk Factor Score Per Nursin RFS Level Per Nursing on Admit: 1=Low/No VTE PPX BESS JACKSON DO May 16, 2017 10:25
[2017-05-16] MEDS ORDERED: LIDOCAINE 1% INJ 20 ML (XYLOCAINE) VIAL ONE (13:56)
[2017-05-16] MEDS ORDERED: fentaNYL INJECTION 100 MCG/2 ML AMP ONE ×2 (13:56→14:19)
[2017-05-16] MEDS ORDERED: MIDAZOLAM 2 MG/2 ML (VERSED) VIAL ONE (13:57)
--- NOTE | 2017-05-16 14:54 | Pre-Op Note & Conscious Sedat ---
Pre-Operative Progress Note H&P Reviewed The H&P was reviewed, patient examined and no changes noted. Date H&P Reviewed: May 16, 2017 Time H&P Reviewed: 14:00 Pre-Op Diagnosis: RLQ fluid collection Conscious Sedation Pre-Proced Time Reviewed: 14:00 ASA Class: 2 Airway Mallampati Classification: ([place] appropriate class) I. II. III, IV Lungs Heart ASA score ASA 1: a normal healthy patient ASA 2: a patient with a mild systemic disease (mid diabetes, controlled hypertension, obesity ASA 3: a patient with a severe systemic disease that limits activity (angina , COPD, prior Myocardial infarction) ASA 4: a patient with an incapacitating disease that is a constant threat to life (CHF, renal failure) ASA 5: a moribund patient not expected to survive 24 hrs. (ruptured aneurysm) ASA 6: a declared brain patient whose organs are being harvested. For emergent operations, add the letter E after the classification Grade 4 Sedation Plan: Analgesia Note The patient is an appropriate candidate to undergo the planned procedure, sedation, and anesthesia. The patient immediately re-assessed prior to indication. MANE CHADWICK MD May 16, 2017 14:54
--- NOTE | 2017-05-16 14:58 | Radiology-Procedure Note ---
Procedures/Interventions Procedure/Intervention s/p RLQ drain placement. After removing the dilator over the wire, relatively significant blood return was seen from the skin orifice. This is questioned to be related to a small arterial branch source, potentially in this region from the right inferior epigastric artery. Pressure was held for from 3 minutes and the lesion of the tract. This appears to control the bleeding. Subsequently 10 Maltese drain was advanced carefully over the wire and no further bleeding seen from the skin site. There is however blood return seen from the drain itself. Findings were discussed with the Dr. Kong. The vital signs are stable and the patient is asymptomatic at this time. Close monitoring is recommended. MANE CHADWICK MD May 16, 2017 14:58
--- NOTE | 2017-05-16 16:58 | Diagnostic Imaging Report ---
EXAMINATION: CT-guided drain placement. Abdomen right lower quadrant collection. INDICATION: Right lower quadrant fluid collection. Estimated blood loss: 50 ml The patient's vital signs, cardiac rhythm, and pulse oximetry with observed throughout the procedure by qualified nursing personnel. Sedation/medications: Versed 2 mg and fentanyl 150 mcg. CONSENT: Informed consent was obtained from the patient. The risks, benefits, potential complications and alternatives were reviewed and all questions answered to the patient's satisfaction. FINDINGS: Right lower quadrant fluid collection with a serous fluid obtained. Hemorrhage was noted during the drain placement. PROCEDURE: After maximal sterile barrier preparation and draping, 1% lidocaine was utilized for local anesthesia. With the patient in supine position, anterior approach was selected. A 19-gauge Yueh sheathed needle was introduced utilizing CT guidance into the right lower quadrant fluid collection. CT images confirm appropriate positioning. After standard over a guidewire exchange technique and after serial dilatation, a 10 Azeri drain is placed and distal loop formed in the collection. After removal of 8 Azeri dilator over the wire, blood return was seen around the wire from the skin site. Pressure was applied for 3 minutes which appears to control the bleeding. Subsequently the drain was placed over the wire with no active bleeding identified. There is ultrasound however seen from drain. A 5 ml of serous minimally cloudy yellow fluid is aspirated and sent to microbiology. There is no enteric contents or cleve pus seen. The drainage catheter is connected to suction drain. The patient tolerated the procedure well with stable vital signs and no complaints. Bleeding from the skin entry site stopped after applying pressure and placement of the drain. IMPRESSION: 1. Successful CT-guided, 10 Azeri, drain placement in right lower quadrant fluid collection. 2. Approximately 50 mL of blood return from the skin site within 2 minutes was seen after removal of the dilator over the wire. This appears to be controlled after manual compression. The patient vital signs were stable and the patient continued to be asymptomatic. Dr. Kong was informed. Dictated by: Dictated on workstation # [id number]
[2017-05-16] MEDS: ACETAMINOPHEN 500 MG TAB (TYLENOL) PO PRN (17:37)
[2017-05-17] MEDS: PIPERACILLIN SODIUM/TAZOBACTAM 4.5 GM in NS (IVPB) 100 ML IV SCH ×3 (00:13→16:14)
[2017-05-17] MEDS: LACTATED RINGERS 1,000 ML IV SCH ×6 (00:13→16:08)
[2017-05-17 00:25] VITALS: BP 115/59
[2017-05-17] MEDS: KETOROLAC 30 MG/ML VIAL IVP SCH ×4 (03:21→21:18)
[2017-05-17] MEDS: ACETAMINOPHEN 500 MG TAB (TYLENOL) PO PRN (03:52)
[2017-05-17 04:00] VITALS: BP 111/58
[2017-05-17 06:06] LABS: BASOPHILS % (AUTO) 0 % (0-10); EOSINOPHILS % (AUTO) 0 % (0-10); LYMPHOCYTES # (AUTO) 1.2 X 10^3 (1.0-4.0); LYMPHOCYTES % (AUTO) 8 % (12-44); MEAN CORPUSCULAR HEMOGLOBIN 29 PG (25-34); MEAN CORPUSCULAR HGB CONC 34 G/DL (32-36); MEAN CORPUSCULAR VOLUME 86 FL (80-99); MEAN PLATELET VOLUME 9.6 FL (7.4-10.4); MONOCYTES # (AUTO) 0.9 X 10^3 (0.0-1.0); MONOCYTES % (AUTO) 6 % (0-12); NEUTROPHILS # (AUTO) 12.2 X 10^3 (1.8-7.8); NEUTROPHILS % (AUTO) 85 % (42-75); PLATELET COUNT 233 10^3/uL (130-400); RED BLOOD COUNT 4.36 10^6/uL (4.35-5.85); RED CELL DISTRIBUTION WIDTH 15.1 % (10.0-14.5); WHITE BLOOD COUNT 14.3 10^3/uL (4.3-11.0)
[2017-05-17 06:29] LABS: ALANINE AMINOTRANSFERASE 37 U/L (0-55); ALBUMIN 3.3 GM/DL (3.2-4.5); ANION GAP 13 MMOL/L (5-14); ASPARTATE AMINO TRANSFERASE 18 U/L (5-34); BILIRUBIN,TOTAL 1.5 MG/DL (0.1-1.0); BLOOD UREA NITROGEN 13 MG/DL (7-18); BUN/CREATININE RATIO 16; CALCIUM 8.5 MG/DL (8.5-10.1); CARBON DIOXIDE 19 MMOL/L (21-32); CHLORIDE 106 MMOL/L (98-107); GFR ESTIMATED > 60; GLUCOSE 101 MG/DL (70-105); POTASSIUM 3.6 MMOL/L (3.6-5.0); SODIUM 138 MMOL/L (135-145); TOTAL PROTEIN 6.6 GM/DL (6.4-8.2)
[2017-05-17] MEDS: morphine INJ 10 MG/ML 1ML (SYR OR VIAL) IVP PRN ×3 (06:37→21:39)
[2017-05-17 08:00] VITALS: BP 99/50
--- NOTE | 2017-05-17 08:43 | Diagnostic Imaging Report ---
Supine and upright view of the abdomen. INDICATION: Followup perforation. Comparison 05/15/17 FINDINGS: There is contrast in the colon and rectum from previous oral contrast administered. There is mild/ moderate dilatation of some small bowel loops suggestive of partial obstruction or mild reactive ileus to the underlying inflammation. A drain in the right lower quadrant is seen. The upright view demonstrate the no free pneumoperitoneum. There is however a small amount of extraluminal air seen in the right lower quadrant adjacent to the right colon which appears the slightly increased compared to 05/15/17. IMPRESSION: Mildly dilated small bowel loops are suggestive of partial small bowel obstruction or mild reactive ileus. Small amount of extraluminal air is seen outside the colon in the right lower quadrant slightly increased from 05/15/17 exam. Dictated by: Dictated on workstation # [id number]
[2017-05-17] MEDS: PANTOPRAZOLE 40 MG/10 ML (PROTONIX) VIAL IV SCH (09:04)
[2017-05-17] MEDS ORDERED: proPOfol 200 MG/20 ML (DIPRIVAN) VIAL IV ONE (09:45)
[2017-05-17] MEDS ORDERED: LACTATED RINGERS 1,000 ML IV ONE (09:45)
[2017-05-17] MEDS ORDERED: LACTATED RINGERS 1,000 ML IV PRN (09:45)
[2017-05-17] MEDS ORDERED: DEXAMETHASONE PF 10 MG/ML (DECADRON) VIAL ONE (09:45)
[2017-05-17] MEDS ORDERED: LIDOCAINE 2% 20 ML (XYLOCAINE) VIAL ONE (09:45)
[2017-05-17] MEDS ORDERED: ONDANSETRON 4 MG/2 ML (SDV) Z0FRAN ONE (09:45)
[2017-05-17] MEDS ORDERED: ROCURONIUM 50 MG/5 ML (ZEMURON) VIAL IV ONE ×3 (09:45→12:42)
[2017-05-17] MEDS ORDERED: SEVOFLURANE (ULTANE) 15 ML INHAL SOLN ONE ×2 (09:45→14:09)
[2017-05-17] MEDS ORDERED: fentaNYL INJECTION 100 MCG/2 ML AMP ONE ×3 (09:46→14:18)
[2017-05-17] MEDS ORDERED: MIDAZOLAM 2 MG/2 ML (VERSED) VIAL ONE ×2 (09:46→10:25)
--- NOTE | 2017-05-17 09:46 | Progress Note ---
Subjective Time Seen by Provider: 09:27 Subjective/Events-last exam Pt seen and examined, states he feels about the same, possibly a little better. No nausea or vomiting. Review of Systems HEENT: No Head Aches, No Visual Changes Pulmonary: No Dyspnea, No Cough Cardiovascular: No: Chest Pain, Palpitations Gastrointestinal: No: Nausea, Vomiting Genitourinary: No Dysuria, Frequency Objective Exam Vital Signs Date Time Temp Pulse Resp B/P (MAP) Pulse Ox O2 Delivery O2 Flow Rate FiO2 05/17/17 08:00 99.0 90 20 99/50 92 Room Air 05/17/17 05:00 100.2 05/17/17 04:00 100.3 101 16 111/58 91 Room Air 05/17/17 00:25 99.2 97 16 115/59 93 Room Air 05/16/17 23:36 98.9 05/16/17 21:00 Room Air 05/16/17 21:00 98.6 05/16/17 19:33 100.4 104 20 115/78 92 Room Air 05/16/17 17:37 99.6 05/16/17 17:15 99.8 91 20 104/70 94 Room Air 05/16/17 16:15 99.6 77 20 101/63 94 Room Air 05/16/17 15:46 99.1 75 20 106/71 95 Room Air 05/16/17 15:00 99.0 74 20 115/70 92 Room Air 05/16/17 12:00 98.6 79 20 114/74 94 Room Air I & O 05/17/17 07:00 Intake Total 30 ml Output Total 1465 ml Balance -1435 ml Capillary Refill : Less Than 3 Seconds General Appearance: WD/WN, Mild Distress, Obese HEENT: Pharynx Normal, No Pale Conjunctivae (L), No Pale Conjunctivae (R), No Scleral Icterus (L), No Scleral Icterus (R) Neck: Non Tender, Supple Respiratory: Chest Non Tender, Lungs Clear, Normal Breath Sounds, No Accessory Muscle Use, No Respiratory Distress Cardiovascular: Regular Rate, Rhythm, No Edema, No Murmur, Normal Peripheral Pulses Gastrointestinal: soft, abnormal bowel sounds (hypoactive in the right lower quadrant, normoactive in the remaining quadrants.), tenderness (right lower quadrant and flank) Extremity: Non Tender, No Calf Tenderness, No Pedal Edema Neurologic/Psychiatric: Alert, Oriented x3, No Motor/Sensory Deficits, Normal Mood/Affect, community product specialist II-XII Norm as Tested Skin: Normal Color, Damp, Diaphoresis Lymphatic: No Adenopathy (neck, axilla or groin) Results Lab Laboratory Tests 05/17/17 05:48: White Blood Count 14.3H, Red Blood Count 4.36, Hemoglobin 12.8L, Hematocrit 38L , Mean Corpuscular Volume 86, Mean Corpuscular Hemoglobin 29, Mean Corpuscular Hemoglobin Concent 34, Red Cell Distribution Width 15.1H, Platelet Count 233, Mean Platelet Volume 9.6, Neutrophils (%) (Auto) 85H, Lymphocytes (%) (Auto) 8L , Monocytes (%) (Auto) 6, Eosinophils (%) (Auto) 0, Basophils (%) (Auto) 0, Neutrophils # (Auto) 12.2H, Lymphocytes # (Auto) 1.2, Monocytes # (Auto) 0.9, Eosinophils # (Auto) 0.0, Basophils # (Auto) 0.0, Sodium Level 138, Potassium Level 3.6, Chloride Level 106, Carbon Dioxide Level 19L, Anion Gap 13, Blood Urea Nitrogen 13, Creatinine 0.80, Estimat Glomerular Filtration Rate > 60, BUN/ Creatinine Ratio 16, Glucose Level 101, Calcium Level 8.5, Total Bilirubin 1.5H , Aspartate Amino Transf (AST/SGOT) 18, Alanine Aminotransferase (ALT/SGPT) 37, Alkaline Phosphatase 42, Total Protein 6.6, Albumin 3.3 Microbiology 05/16/17 Blood Culture - Preliminary, Resulted No growth 05/16/17 Gram Stain - Final, Resulted 05/16/17 Anaerobic Culture, Resulted Pending 05/16/17 Surgical Culture - Preliminary, Resulted No growth 05/15/17 Urine Culture - Preliminary, Resulted NO GROWTH Assessment/Plan Assessment/Plan Assessment/Plan 1. Increasing Pneumoperitoneum - I spoke with Radiologist regarding abd xray this am, he thinks there may be more free air compared to last xray. Unfortunately all 3 CT's also showed increasing air, minimal and contained, but slightly more. I don't think the pigtail catheter will help and believe we need to look at intestine. Plan is Diagnostic Laparotomy, possible small bowel resection. I explained all this to the pt; discussed risks and complications not limited to pain, bleeding, infection, scar and damage to bowel. I am unsure why he may have a leak 6 weeks later....does not make sense and we know this just started when pain occurred and has not been a slow process since surgery. 2. RLQ pain with Pyrexia secondary to #1 3. PSBO - seems to be resolving, contrast through area and into transverse colon probably due to #1 4. Elevated WBC - started on IV Zosyn and blood cultures obtained, down from yesterday. 5. Non-obstructive Renal calculi Clinical Quality Measures DVT/VTE Risk/Contraindication: Risk Factor Score Per Nursin RFS Level Per Nursing on Admit: 1=Low/No VTE PPX BESS JACKSON DO May 17, 2017 09:46
[2017-05-17] MEDS ORDERED: LIDOCAINE/EPI 1%-1:200,000 (XYLOCAINE) 30 ML VIAL ONE (10:34)
[2017-05-17] MEDS ORDERED: morphine INJ 10 MG/ML 1ML (SYR OR VIAL) ONE (13:28)
[2017-05-17] MEDS ORDERED: NEOSTIGMINE (BLOXIVERZ ) 1 MG/1ML 10 ML VIAL ONE (13:55)
[2017-05-17] MEDS ORDERED: GLYCOPYRROLATE 0.2 MG/ML (ROBINUL) 2 ML VIAL ONE ×2 (13:55→14:33)
[2017-05-17] MEDS ORDERED: SUCCINYLCHOLINE INJ 100 MG/5 ML SYR ONE (13:57)
[2017-05-17] MEDS ORDERED: MEPERIDINE (DEMEROL) INJ 50 MG/ML ONE (14:05)
[2017-05-17] MEDS ORDERED: HYDROmorphone (DILAUDID) 2 MG/ML VIAL ONE (14:05)
--- NOTE | 2017-05-17 14:26 | Progress Note-Post Operative ---
Post-Operative Progess Note Surgeon (s)/Completion Supervisor (s) Surgeon BESS JACKSON DO Completion Supervisor: Carson Pre-Operative Diagnosis RLQ fluid collection, increasing pneumoperitoneum Post-Operative Diagnosis Same plus, hemoperitoneum, questionable perforation at small bowel anastomosis Procedure & Operative Findings Date of Procedure 05/17/17 Procedure Performed/Findings Diagnostic Laparoscopy converted to Laparotomy with small bowel resection, lysis of adhesions Anesthesia Type GET Estimated Blood Loss Estimated blood loss (mL): appx 100ml from procedure, appx 700 ml suctioned out from drain Specimens/Packing Specimens Removed 1.mesenteric nodule for fungal culture 2.portion of SB 3.portion of omentum BESS JACKSON DO May 17, 2017 14:25
[2017-05-17] MEDS: HYDROmorphone (DILAUDID) 2 MG/ML VIAL IVP PRN ×4 (14:55→15:15)
[2017-05-17] MEDS ORDERED: MEPERIDINE (DEMEROL) INJ 50 MG/ML IVP PRN (15:00)
[2017-05-17] MEDS ORDERED: morphine INJ 10 MG/ML 1ML (SYR OR VIAL) IVP PRN (15:00)
[2017-05-17] MEDS ORDERED: ONDANSETRON 4 MG/2 ML (SDV) Z0FRAN IVP PRN (15:00)
[2017-05-17 16:15] VITALS: BP 113/57
[2017-05-17 20:35] VITALS: BP 97/66
[2017-05-18] VITALS: BP 110/73
[2017-05-18] MEDS: PIPERACILLIN SODIUM/TAZOBACTAM 4.5 GM in NS (IVPB) 100 ML IV SCH ×3 (00:11→15:55)
[2017-05-18] MEDS: morphine INJ 10 MG/ML 1ML (SYR OR VIAL) IVP PRN ×5 (00:11→13:25)
[2017-05-18] MEDS: KETOROLAC 30 MG/ML VIAL IVP SCH ×4 (03:07→21:31)
[2017-05-18 04:00] VITALS: BP 116/58
[2017-05-18] MEDS: LACTATED RINGERS 1,000 ML IV SCH ×2 (07:31→21:30)
[2017-05-18 08:00] VITALS: BP 102/64
[2017-05-18] MEDS: PANTOPRAZOLE 40 MG/10 ML (PROTONIX) VIAL IV SCH (09:03)
--- NOTE | 2017-05-18 10:45 | Progress Note (SOAP) ---
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 HE WAS ADMITTED BY DR. JACKSON FOR ABDOMINAL ABSCESS. PT SEEN A COURTESY VISIT - I HAVE NOT BEEN CONSULTED, STAFF WORRIED ABOUT PATIENT'S MENTAL STATUS - APPEARS TO BE QUITE DEPRESSED. WHEN I QUESTIONED THE PATIENT, HE ADMITTED TO FEELING QUITE DEPRESSED AFTER SHERRIE MONTHS OF ILLNESS HAS HAS ENDURED. HE ADMITS TO HAVING PAIN THAT IS NOT OPTIMALLY CONTROLLED. Review of Systems General: Fatigue, Malaise Pulmonary: No Dyspnea, No Cough Cardiovascular: No: Chest Pain, Palpitations Gastrointestinal: Abdominal Pain, No: Nausea Neurological: Other (DEPRESSION/FEELING BLUE- PT THINKS IT IS SITUATIONAL DUE TO HIS REPEAT SURGERIES), Weakness Objective Exam Vital Signs Date Time Temp Pulse Resp B/P (MAP) Pulse Ox O2 Delivery O2 Flow Rate FiO2 05/18/17 09:00 94 Nasal Cannula 2.00 05/18/17 08:00 98.7 69 20 102/64 94 Nasal Cannula 2.00 05/18/17 04:00 100.2 83 18 116/58 95 Nasal Cannula 2.00 05/18/17 00:00 98.9 83 17 110/73 95 Nasal Cannula 2.00 05/17/17 21:00 Room Air 05/17/17 20:35 98.3 78 24 97/66 97 Room Air 05/17/17 19:43 Nasal Cannula 2.50 05/17/17 16:15 97.8 67 20 113/57 95 Room Air 05/17/17 15:45 Room Air I & O 05/18/17 07:00 Intake Total 3100 ml Output Total 1775 ml Balance 1325 ml Capillary Refill : Less Than 3 Seconds General Appearance: WD/WN HEENT: PERRL/EOMI Respiratory: Chest Non Tender, Lungs Clear, Normal Breath Sounds Cardiovascular: Regular Rate, Rhythm, No Edema Gastrointestinal: tenderness (DRESSING IN PLACE - DECREASED BOWEL SOUNDS) Extremity: No Pedal Edema Neurologic/Psychiatric: Alert, Oriented x3, Depressed Affect Skin: Warm/Dry Results Lab Microbiology 05/16/17 Blood Culture - Preliminary, Resulted No growth 05/16/17 Gram Stain - Final, Resulted 05/16/17 Anaerobic Culture - Preliminary, Resulted No growth 05/16/17 Surgical Culture - Preliminary, Resulted No growth 05/15/17 Urine Culture - Preliminary, Resulted 05/17/17 Gram Stain - Final, Resulted 05/17/17 Anaerobic Culture, Resulted Pending 05/17/17 Surgical Culture - Preliminary, Resulted No growth 05/17/17 Fungal Culture, Resulted Pending Assessment/Plan Assessment/Plan Assess & Plan/Chief Complaint DEPRESSION UNCONTROLLED PAIN ABDOMINAL ABSCESS CONTINUE WITH IV ANTIBIOTICS, MONITOR GI OUTPUT. DEPRESSION - START CYMBALTA 30MG BID UNCONTROLLED PAIN - CONTINUE WITH MORPHINE - THE CYMBALTA MAY HELP A LITTLE WITH PAIN WELL, WILL MONITOR TOMORROW. Clinical Quality Measures DVT/VTE Risk/Contraindication: Risk Factor Score Per Nursin RFS Level Per Nursing on Admit: 1=Low/No VTE PPX KENIA MATTHEWS MD May 18, 2017 10:45
--- NOTE | 2017-05-18 10:50 | Progress Note (SOAP) ---
Subjective Date Seen by Provider: May 18, 2017 Time Seen by Provider: 10:15 Subjective/Events-last exam Patient seen with Dr. Dubon. Patient up in bedside chair and reports doing well other than diffuse abdominal pain. No N/V. No Fever/Chills. No BM yet but reports flatulence. Ambulating to bathroom to urinate. Tolerating ice chips. Review of Systems General: No Chills, No Night Sweats Gastrointestinal: Abdominal Pain, No: Nausea, Vomiting Objective Exam Vital Signs Date Time Temp Pulse Resp B/P (MAP) Pulse Ox O2 Delivery O2 Flow Rate FiO2 05/18/17 09:00 94 Nasal Cannula 2.00 05/18/17 08:00 98.7 69 20 102/64 94 Nasal Cannula 2.00 05/18/17 04:00 100.2 83 18 116/58 95 Nasal Cannula 2.00 05/18/17 00:00 98.9 83 17 110/73 95 Nasal Cannula 2.00 05/17/17 21:00 Room Air 05/17/17 20:35 98.3 78 24 97/66 97 Room Air 05/17/17 19:43 Nasal Cannula 2.50 05/17/17 16:15 97.8 67 20 113/57 95 Room Air 05/17/17 15:45 Room Air I & O 05/18/17 07:00 Intake Total 3100 ml Output Total 1775 ml Balance 1325 ml Capillary Refill : Less Than 3 Seconds General Appearance: No Apparent Distress, WD/WN HEENT: PERRL/EOMI Neck: Full Range of Motion, Normal Inspection, Non Tender, Supple Respiratory: Chest Non Tender, Lungs Clear, Normal Breath Sounds, No Accessory Muscle Use, No Respiratory Distress Cardiovascular: Regular Rate, Rhythm, No Murmur Gastrointestinal: soft, tenderness Extremity: Normal Capillary Refill, Normal Inspection, Normal Range of Motion, Non Tender, No Calf Tenderness, No Pedal Edema Neurologic/Psychiatric: Alert, Oriented x3 Skin: Normal Color, Warm/Dry, Other (Midline laparotomy open incision with good granulation tissue noted. Dressing changed with RN.) Lymphatic: No Adenopathy Results Lab Microbiology 05/16/17 Blood Culture - Preliminary, Resulted No growth 05/16/17 Gram Stain - Final, Resulted 05/16/17 Anaerobic Culture - Preliminary, Resulted No growth 05/16/17 Surgical Culture - Preliminary, Resulted No growth 05/15/17 Urine Culture - Preliminary, Resulted 05/17/17 Gram Stain - Final, Resulted 05/17/17 Anaerobic Culture, Resulted Pending 05/17/17 Surgical Culture - Preliminary, Resulted No growth 05/17/17 Fungal Culture, Resulted Pending Assessment/Plan Assessment/Plan Assess & Plan/Chief Complaint A 26 year old male who is S/P Diagnostic Laparoscopy converted to Laparotomy with small bowel resection, lysis of adhesions for RLQ pain, pneumoperitoneum, hemoperitoneum, questionable perforation at small bowel anastomosis Continue with medical management with pain and nausea medication. Continue Abx. Encourage ambulation and IS. Daily dressing change and PRN Patient passing flatulence will start clear liquid diet. Will await more bowel function. Clinical Quality Measures DVT/VTE Risk/Contraindication: Risk Factor Score Per Nursin RFS Level Per Nursing on Admit: 1=Low/No VTE PPX TIO GALLAGHER ROTARY SURFACE GRINDER May 18, 2017 10:50
[2017-05-18 12:00] VITALS: BP 93/62
--- NOTE | 2017-05-18 14:01 | Anesthesia-General Post-Op ---
General Patient Condition Mental Status/LOC: Same as Preop Cardiovascular: Satisfactory Nausea/Vomiting: Absent Respiratory: Satisfactory Pain: Controlled Complications: Absent Post Op Complications Complications None Follow Up Care/Instructions Patient Instructions None needed. Anesthesia/Patient Condition Patient Condition Patient is doing well, no complaints, stable vital signs, no apparent adverse anesthesia problems. No complications reported per nursing. LOREE ABAD CRNA May 18, 2017 14:01
[2017-05-18 15:14] LABS: BASOPHILS % (AUTO) 0 % (0-10); EOSINOPHILS % (AUTO) 0 % (0-10); LYMPHOCYTES # (AUTO) 1.4 X 10^3 (1.0-4.0); LYMPHOCYTES % (AUTO) 10 % (12-44); MEAN CORPUSCULAR HEMOGLOBIN 29 PG (25-34); MEAN CORPUSCULAR HGB CONC 33 G/DL (32-36); MEAN CORPUSCULAR VOLUME 88 FL (80-99); MEAN PLATELET VOLUME 9.7 FL (7.4-10.4); MONOCYTES # (AUTO) 0.9 X 10^3 (0.0-1.0); MONOCYTES % (AUTO) 6 % (0-12); NEUTROPHILS # (AUTO) 12.8 X 10^3 (1.8-7.8); NEUTROPHILS % (AUTO) 85 % (42-75); PLATELET COUNT 297 10^3/uL (130-400); RED BLOOD COUNT 3.68 10^6/uL (4.35-5.85); WHITE BLOOD COUNT 15.2 10^3/uL (4.3-11.0)
[2017-05-18 15:35] LABS: ALANINE AMINOTRANSFERASE 28 U/L (0-55); ALBUMIN 3.2 GM/DL (3.2-4.5); ANION GAP 10 MMOL/L (5-14); ASPARTATE AMINO TRANSFERASE 15 U/L (5-34); BLOOD UREA NITROGEN 12 MG/DL (7-18); BUN/CREATININE RATIO 15; CALCIUM 8.5 MG/DL (8.5-10.1); CARBON DIOXIDE 25 MMOL/L (21-32); CHLORIDE 105 MMOL/L (98-107); GFR ESTIMATED > 60; GLUCOSE 114 MG/DL (70-105); POTASSIUM 3.7 MMOL/L (3.6-5.0); SODIUM 140 MMOL/L (135-145); TOTAL PROTEIN 6.6 GM/DL (6.4-8.2)
[2017-05-18 15:56] VITALS: BP 103/68
[2017-05-18] MEDS: oxyCODONE/APAP 5/325MG (PERCOCET 5) TABLET PO PRN (19:02)
[2017-05-18 20:03] VITALS: BP 119/53
[2017-05-18] MEDS: DULoxetine 30 MG (CYMBALTA) CAP PO SCH (21:30)
[2017-05-19] VITALS: BP 111/72
[2017-05-19] MEDS: PIPERACILLIN SODIUM/TAZOBACTAM 4.5 GM in NS (IVPB) 100 ML IV SCH ×4 (00:15→23:20)
[2017-05-19] MEDS: LACTATED RINGERS 1,000 ML IV SCH ×4 (03:37→23:20)
[2017-05-19] MEDS: KETOROLAC 30 MG/ML VIAL IVP SCH ×4 (03:37→20:02)
[2017-05-19 04:00] VITALS: BP 120/69
[2017-05-19 08:00] VITALS: BP 110/55
[2017-05-19] MEDS: PANTOPRAZOLE 40 MG/10 ML (PROTONIX) VIAL IV SCH (08:17)
[2017-05-19] MEDS: DULoxetine 30 MG (CYMBALTA) CAP PO SCH ×3 (08:19→20:03)
--- NOTE | 2017-05-19 09:48 | Progress Note (SOAP) ---
Subjective Date Seen by Provider: May 19, 2017 Time Seen by Provider: 09:45 Subjective/Events-last exam Patient seen with Dr. Dubon. Patient reports doing well. Still complains of abdominal pain but reports pain medication does help. No N/V. Reports passing flatus. no fever/chills. tolerating diet and ambulating. Review of Systems General: No Chills, No Night Sweats Gastrointestinal: Abdominal Pain, No: Nausea, Vomiting Objective Exam Vital Signs Date Time Temp Pulse Resp B/P (MAP) Pulse Ox O2 Delivery O2 Flow Rate FiO2 05/19/17 04:00 98.4 84 18 120/69 93 Nasal Cannula 2.00 05/19/17 00:00 97.5 86 18 111/72 93 Nasal Cannula 2.00 05/18/17 20:03 98.2 84 20 119/53 93 Nasal Cannula 2.00 05/18/17 20:00 Room Air 05/18/17 15:56 98.7 86 20 103/68 94 Nasal Cannula 2.00 05/18/17 12:00 98.7 83 20 93/62 95 Nasal Cannula 2.00 05/18/17 11:04 Room Air I & O 05/19/17 07:00 Intake Total 3350 ml Output Total 1725 ml Balance 1625 ml Capillary Refill : Less Than 3 Seconds General Appearance: No Apparent Distress, WD/WN HEENT: PERRL/EOMI Neck: Full Range of Motion, Normal Inspection, Non Tender, Supple Respiratory: Chest Non Tender, Lungs Clear, Normal Breath Sounds, No Accessory Muscle Use, No Respiratory Distress Cardiovascular: Regular Rate, Rhythm, No Murmur Gastrointestinal: normal bowel sounds, non tender, soft, no organomegaly, no pulsatile mass Extremity: Normal Capillary Refill, Normal Inspection, Normal Range of Motion, Non Tender, No Calf Tenderness, No Pedal Edema Neurologic/Psychiatric: Alert, Oriented x3 Skin: Normal Color, Warm/Dry, Other (Midline laparotomy incision with good granulation tissue noted. Dressing changed.) Results Lab Laboratory Tests 05/18/17 15:02: White Blood Count 15.2H, Red Blood Count 3.68L, Hemoglobin 10.5L, Hematocrit 32L , Mean Corpuscular Volume 88, Mean Corpuscular Hemoglobin 29, Mean Corpuscular Hemoglobin Concent 33, Red Cell Distribution Width 15.0H, Platelet Count 297, Mean Platelet Volume 9.7, Neutrophils (%) (Auto) 85H, Lymphocytes (%) (Auto) 10L , Monocytes (%) (Auto) 6, Eosinophils (%) (Auto) 0, Basophils (%) (Auto) 0, Neutrophils # (Auto) 12.8H, Lymphocytes # (Auto) 1.4, Monocytes # (Auto) 0.9, Eosinophils # (Auto) 0.0, Basophils # (Auto) 0.0, Sodium Level 140, Potassium Level 3.7, Chloride Level 105, Carbon Dioxide Level 25, Anion Gap 10, Blood Urea Nitrogen 12, Creatinine 0.80, Estimat Glomerular Filtration Rate > 60, BUN/ Creatinine Ratio 15, Glucose Level 114H, Calcium Level 8.5, Total Bilirubin 1.0 , Aspartate Amino Transf (AST/SGOT) 15, Alanine Aminotransferase (ALT/SGPT) 28, Alkaline Phosphatase 37L, Total Protein 6.6, Albumin 3.2 Microbiology 05/16/17 Blood Culture - Preliminary, Resulted No growth 05/16/17 Gram Stain - Final, Resulted 05/16/17 Anaerobic Culture - Preliminary, Resulted No growth 05/16/17 Surgical Culture - Preliminary, Resulted No growth 05/15/17 Urine Culture - Final, Complete 05/17/17 Gram Stain - Final, Resulted 05/17/17 Anaerobic Culture, Resulted Pending 05/17/17 Surgical Culture - Preliminary, Resulted No growth 05/17/17 Fungal Culture, Resulted Pending Assessment/Plan Assessment/Plan Assess & Plan/Chief Complaint A 26 year old male who is S/P Diagnostic Laparoscopy converted to Laparotomy with small bowel resection, lysis of adhesions for RLQ pain, pneumoperitoneum, hemoperitoneum, questionable perforation at small bowel anastomosis Continue with medical management with pain and nausea medication. Continue Abx. Encourage ambulation and IS. Daily dressing change and PRN Patient passing flatulence will start clear liquid diet. Will await more bowel function. Clinical Quality Measures DVT/VTE Risk/Contraindication: Risk Factor Score Per Nursin RFS Level Per Nursing on Admit: 1=Low/No VTE PPX TIO GALLAGHER EXCHANGE UNDERWRITING CONSULTANT May 19, 2017 09:48
[2017-05-19] MEDS: morphine INJ 10 MG/ML 1ML (SYR OR VIAL) IVP PRN ×2 (09:49→15:51)
[2017-05-19 12:00] VITALS: BP_SYST 110; BP_SYST 118; BP_DIAS 55; BP_DIAS 59
[2017-05-19 16:59] VITALS: BP 103/57
[2017-05-19 19:36] VITALS: BP 123/60
[2017-05-20] VITALS: BP 108/65
[2017-05-20] MEDS: KETOROLAC 30 MG/ML VIAL IVP SCH ×2 (02:19→09:00)
[2017-05-20] MEDS: oxyCODONE/APAP 5/325MG (PERCOCET 5) TABLET PO PRN ×4 (02:21→23:13)
[2017-05-20] MEDS: LACTATED RINGERS 1,000 ML IV SCH (05:59)
[2017-05-20 08:00] VITALS: BP 126/64
--- NOTE | 2017-05-20 08:38 | OPERATIVE REPORT ---
PROCEDURE PHYSICIAN: BESS KONG DATE OF PROCEDURE: 05/16/2017 PREOPERATIVE DIAGNOSIS: Increasing pneumoperitoneum, abdominal pain, inflammation. POSTOPERATIVE DIAGNOSIS: Pneumoperitoneum, hemoperitoneum, adhesions. PROCEDURE: 1. Diagnostic laparoscopy converted to laparotomy with small bowel resection. 2. Lysis of adhesions. 3. Partial omentectomy. SURGEON: Dr. Kong CAPTION WRITER: Dr. Byrd. ANESTHESIA: General tracheal tube. SPECIMEN: 1. Small biopsy from the mesentery. 2. Portion of small intestine. 3. Omentum. BLOOD LOSS: Approximately 100 mL from the procedure but we suctioned out about 700 milliliters more than that, probably from his drain placement the day previously. 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 He also had small bowel resection and appendectomy at that time. He had been doing fine and had some trouble with the midline incision, was improving slowly and then all of a sudden had a sudden onset of severe right lower quadrant pain with high fevers. He went to the emergency room was admitted. First CT showed very minimal amount of free air right around the spot of the small bowel anastomosis. Repeat CT to make sure that this was not intraluminal with oral contrast showed increasing air and then had a flat plate today, which showed increasing air. Attempted a drain placed that drained minimal fluid around this free air yesterday. Unfortunately during the procedure the interventional radiologist nicked some vessel and got a lot of bleeding. Flat plate showed increasing air today compared to the previous flat plate and therefore elected to go to surgery. FINDINGS: The patient had about 700 mL of blood in the belly most likely from the previous drainage. He had adhesions. He had little white nodules on the bowel and mesentery; sent one of these for pathology. He had omentum covering and the anastomosis looked like it had inflammation and had seen some fibrinous material, but no real purulence in the abdomen. Elected to resect this anastomosis and redo it. PROCEDURE NOTE: After informed consent was obtained patient brought to the operating room, placed on table in supine position. He was sterilely prepped and draped in the normal fashion. While pulling out the pigtail drain got immediate red blood coming out. Held pressure for about 10 minutes and1 this stopped it. At this point then sterilely prepped and draped the area started in the left upper quadrant infiltrated with local, then made an incision with an 11 blade, carried down through skin into subcutaneous tissue, then deepened down the subcutaneous tissue with Bovie electrocautery down to fascia. The fascia incised with Bovie electrocautery and then bluntly spread the muscle apart. Went through the posterior fascia and into the peritoneum and placed 11 millimeter trocar port under direct visualization creating pneumoperitoneum and then placed another port in the left lower quadrant. There were a lot of adhesions and we also encountered a lot of blood. Tried to suction this out with small suction, switched to a larger suction and got about 500 or 600 of blood, large amount of clot above the liver taking down adhesions; using blunt dissection as well as there was a little bit of bleeding from a vessel from the omentum. This may have been what was bleeding, unsure and cauterized it with a LigaSure. I placed a second 5 mm port in the mid abdomen but also out just lateral to the muscle to be able to help with two ports; a working port, one for the blunt dissection, one with the LigaSure and then continued out with the suction disability manager. I switched to a 5 mm camera to get bigger suction, 10 mm suction in to suction some of this large clot and this we calculated about 5 to 700 mL of blood that was already in the abdomen. Once we had everything cleaned up and irrigated, trying to free everything up, had gotten the omentum free off of the peritoneum, looked around and tried to get the omentum up and had a hard time, unable to get the omentum up so we could see this area of the small bowel anastomosis. At this point I elected to open. Made a midline incision cutting out the previous scar and the scar tissue with a number 10 blade, carried down through skin into subcutaneous tissue, then deepened down the subcutaneous tissue Bovie electrocautery down to the fascia. The fascia was incised with Bovie electrocautery. Placed a Bookwalter to be able hold the in the abdomen. Once we had gotten this open then suctioned out more blood and then finally able to start taking the omentum back. Had to remove a portion of the omentum but then slowly freeing this up off of the small intestine did a lysis of adhesions, freeing up all the small intestine. When the diagnostic laparoscopy had seen some fibrinous material on the right lower quadrant, but no real purulent fluid. Did not see any feculent material. Once we had freed up the omentum and started freeing up the small intestine we found the anastomosis and looked like it had a lot of inflammation and scarring, and it felt patent, but did not really see any opening. However, because of this small leak of air, could been a small pinhole. Elected to risk anastomosis and made a defect under the intestine in the mesentery with a hemostat and then clamped across the intestine with a JOSEP 75, clamped and fired. Did distally and proximally to the anastomosis and then came across the mesentery to free up this portion of small bowel that we resected with a LigaSure clamping, coagulating and transecting this fashion, removing this. Then placed a JOSEP 35 on the antimesenteric border of the proximal and distal small bowel, clamped it together and then fired, thereby obtaining a [id number], end-to-end anastomosis. Used another reload to then cut across and close the enterotomy of the two small intestines. At this point then oversewed with 3-0 Vicryl pop-off and then closed the mesenteric defect with 0 Vicryl pop-off also through a crotch with 3-0 Vicryl pop-off. There were some small serosal tear; these were closed with 3-0 Vicryl pop-off. At this point then, copiously irrigated with about 5 or 6 liters of warm normal saline looked at all the small intestine, looked good. Colon looked good, liver and gallbladder looked fine. The stomach looked fine. There was some blood up above the spleen and suctioned all this out. There is no fresh bleeding from up there. I believe all the blood that was in the belly was from the IR drainage. The bladder did have an area of inflammation and old blood but otherwise looked intact and fully placed after got out clear yellow urine. After copiously irrigating with normal saline, suction all this out and then elected to just replace the small intestine back into the abdomen. Had to cut off a portion of and necrotic omentum; this was cut off with LigaSure. Placed the rest of the omentum back over the small intestine and then elected to close the incision, closing with a number 1 double-stranded PDS suture; one from the superior portion, one from the inferior portion, ran together meet in the middle and then tying. Elected to not close the abdominal wall because of the previous problems with this and packed with Kerlix soaked with saline. The left upper quadrant, small 12 mm incision was closed over the fascia with 0 Vicryl [id number] suture then closed the skin with cristin. Then closed the two small 5 mm incisions with cristin. The patient was then transferred to the recovery room in stable condition. Sponge, instruments and needle counts were correct at the end of the case. The patient was then transferred to recovery room in stable condition. Job ID: [id number] Dictated Date: 05/17/2017 15:25:35 Presiding Judge Date: 05/20/2017 07:53:46 / driss
[2017-05-20] MEDS: PANTOPRAZOLE 40 MG/10 ML (PROTONIX) VIAL IV SCH (09:00)
[2017-05-20] MEDS: PIPERACILLIN SODIUM/TAZOBACTAM 4.5 GM in NS (IVPB) 100 ML IV SCH ×2 (09:01→16:55)
[2017-05-20] MEDS: DULoxetine 30 MG (CYMBALTA) CAP PO SCH ×2 (09:01→20:57)
[2017-05-20] MEDS: morphine INJ 10 MG/ML 1ML (SYR OR VIAL) IVP PRN (09:51)
--- NOTE | 2017-05-20 10:51 | Progress Note ---
Subjective Time Seen by Provider: 10:34 Subjective/Events-last exam Pt seen and examined, states pain controlled. Reports doesn't have nausea like he did last time. Pt is hungry, +flatus, still no BM. Review of Systems General: No Chills, No Night Sweats Pulmonary: No Dyspnea, No Cough Gastrointestinal: Abdominal Pain, No: Nausea Objective Exam Vital Signs Date Time Temp Pulse Resp B/P (MAP) Pulse Ox O2 Delivery O2 Flow Rate FiO2 05/20/17 08:00 94 Room Air 2.00 05/20/17 08:00 99.4 77 20 126/64 94 Room Air 05/20/17 00:00 98.4 73 18 108/65 95 Room Air 05/19/17 20:00 Room Air 05/19/17 19:36 96.9 62 20 123/60 95 Room Air 05/19/17 16:59 99.6 72 20 103/57 95 Nasal Cannula 2.00 05/19/17 12:00 98.4 74 20 118/59 94 Nasal Cannula 2.00 05/19/17 12:00 98.1 80 20 110/55 95 Nasal Cannula 2.00 I & O 05/20/17 07:00 Intake Total 4040 ml Output Total 3150 ml Balance 890 ml Capillary Refill : Less Than 3 SecondsLess Than 3 Seconds General Appearance: No Apparent Distress, WD/WN HEENT: PERRL/EOMI Respiratory: Lungs Clear, Normal Breath Sounds, No Accessory Muscle Use, No Respiratory Distress Cardiovascular: Regular Rate, Rhythm, No Murmur Gastrointestinal: soft, other (incision was left open, no signs of infection, wound VAC to be placed) Extremity: No Pedal Edema Neurologic/Psychiatric: Alert, Oriented x3 Skin: Normal Color, Warm/Dry Results Lab Microbiology 05/16/17 Blood Culture - Preliminary, Resulted No growth 05/16/17 Gram Stain - Final, Resulted 05/16/17 Anaerobic Culture - Preliminary, Resulted No growth 05/16/17 Surgical Culture - Preliminary, Resulted No growth 05/17/17 MRSA Screen - Final, Complete MRSA not isolated 05/15/17 Urine Culture - Final, Complete 05/17/17 Gram Stain - Final, Resulted 05/17/17 Anaerobic Culture - Preliminary, Resulted No growth 05/17/17 Surgical Culture - Preliminary, Resulted No growth 05/17/17 Fungal Culture, Resulted Pending Assessment/Plan Assessment/Plan Assessment/Plan S/P SBR - wound VAC placed, will start getting home VAC, pain control, increase to soft diet. Encourage IS and ambulation. Per Medicine: DEPRESSION - START CYMBALTA 30MG BID Clinical Quality Measures DVT/VTE Risk/Contraindication: Risk Factor Score Per Nursin RFS Level Per Nursing on Admit: 1=Low/No VTE PPX BESS JACKSON DO May 20, 2017 10:51
[2017-05-20 15:40] VITALS: BP 107/70
[2017-05-21 00:05] VITALS: BP 117/74
[2017-05-21] MEDS: PIPERACILLIN SODIUM/TAZOBACTAM 4.5 GM in NS (IVPB) 100 ML IV SCH ×3 (00:06→16:35)
[2017-05-21] MEDS: oxyCODONE/APAP 5/325MG (PERCOCET 5) TABLET PO PRN ×2 (05:53→15:26)
[2017-05-21] MEDS ORDERED: PANTOPRAZOLE 40 MG (PROTONIX) TAB PO SCH (07:00)
[2017-05-21 08:00] VITALS: BP 106/59
[2017-05-21] MEDS: DULoxetine 30 MG (CYMBALTA) CAP PO SCH (09:20)
--- NOTE | 2017-05-21 09:53 | Progress Note ---
Subjective Time Seen by Provider: 09:49 Subjective/Events-last exam Pt seen and examined, states pain is well controlled. Had BM, no nausea. Review of Systems General: No Chills, No Night Sweats Cardiovascular: No: Chest Pain Gastrointestinal: Abdominal Pain (minimal and controlled), No: Nausea, Vomiting Objective Exam Vital Signs Date Time Temp Pulse Resp B/P (MAP) Pulse Ox O2 Delivery O2 Flow Rate FiO2 05/21/17 00:05 98.7 68 20 117/74 96 Room Air 05/20/17 20:00 94 Room Air 2.00 05/20/17 15:40 99.1 69 18 107/70 95 Room Air I & O 05/21/17 07:00 Intake Total 1720 ml Output Total 3600 ml Balance -1880 ml Capillary Refill : Less Than 3 SecondsLess Than 3 Seconds General Appearance: No Apparent Distress, WD/WN, Obese HEENT: PERRL/EOMI Neck: Normal Inspection Respiratory: Lungs Clear, Normal Breath Sounds, No Accessory Muscle Use, No Respiratory Distress Cardiovascular: Regular Rate, Rhythm, No Murmur Gastrointestinal: other (wound vac in place minimal drainage) Results Lab Microbiology 05/16/17 Blood Culture - Preliminary, Resulted No growth 05/16/17 Gram Stain - Final, Complete 05/16/17 Anaerobic Culture - Final, Complete No growth 05/16/17 Surgical Culture - Final, Complete No growth 05/17/17 MRSA Screen - Final, Complete MRSA not isolated 05/15/17 Urine Culture - Final, Complete 05/17/17 Gram Stain - Final, Resulted 05/17/17 Anaerobic Culture - Preliminary, Resulted No growth 05/17/17 Surgical Culture - Preliminary, Resulted No growth 05/17/17 Fungal Culture, Resulted Pending Assessment/Plan Assessment/Plan Assessment/Plan S/P SBR - wound VAC placed, will start getting home VAC, pain control, increase to soft diet. Encourage IS and ambulation. Plan to DC IV and DC home, as long as pt has home wound VAC and HH set up to change MWF. Per Medicine: DEPRESSION - START CYMBALTA 30MG BID Clinical Quality Measures DVT/VTE Risk/Contraindication: Risk Factor Score Per Nursin RFS Level Per Nursing on Admit: 1=Low/No VTE PPX BESS JACKSON DO May 21, 2017 09:53
[2017-05-21] MEDS ORDERED: OXYC-471 PO (09:54)
--- NOTE | 2017-05-21 09:57 | Discharge Inst-Surgical ---
Discharge Inst-Surgical Depart Medication/Instructions New, Converted or Re-Newed RX: RX Given to Pt/Family Patient Instructions Follow up Appt: Make appointment for 1 week. [phone] Instructions: No lifting greater than 10 pounds. No strenuous activity. May shower in 24 hours, no tub bath or soaking. Use incentive spirometer at home as directed. No Smoking Skin/Wound Care: Home health will be set up to change wound VAC . Symptoms to Report: Appetite Changes, Extremity Discoloration, Numbness/Tingling, Swelling Increased , Bleeding Excessive, Eyesight Changes, Pain Increased, Urine Color Change, Constipation(Persistent), Fever over 101 degree F, Pain/Pressure in chest, Urinating Difficulty, Cough Up/Vomit Blood, Heart Beat Irreg/Pounding, Pain/ Pressure in jaw, Vaginal Bleeding Increase, Cramps in feet or legs, Lightheadedness, Pain/Pressure in shoulder, Diarrhea(Persistent), Memory Changes Suddenly, Questions/Concerns, Weight gain consecutive days, Dizziness/ Fainting, Nausea/Vomiting, Shortness of Breath, Weight gain over 2 pounds If questions or concerns contact your physician Or seek help at emergency department. Activity Activity as Tolerated: Yes Activity Instructions: Avoid Pulling & Pushing, Avoid Stress to Incision Driving Instructions: No Driving/Refer to Dr. Hicks Discharge Diet: No Restrictions Diet After 24 Hours: Clear Liquid if Nauseous If Any Problems/Questions/Issu: Contact Your Physician, Go to Emergency Room Skin/Wound Care Infection Signs and Symptoms: Increased Redness, Foul Odor of Wound, Increased Drainage, Skin Itchy or Has a Rash, Increased Swelling, Temperature Above 101 F Bathing Instructions: Shower (shower on days VAC is changed, otherwise sponge baths) BESS JACKSON DO May 21, 2017 09:57
[2017-05-21 15:38] VITALS: BP 105/68
[2017-05-21 18:26] VITALS: BP 105/68
--- NOTE | 2017-05-24 21:48 | Physician Query Clarification ---
PQ-Uncertain Diagnosis Admission/Discharge Admission Date: May 15, 2017 at 14:56 Discharge Date: May 21, 2017 at 18:25 The medical record reflects the following clinical scenario: History/Risk Factors: status post colon resection and appendectomy Clinical Findings: PSBO, questionable perforation Treatment: Question: 1. Is Post OP ABSCESS a clinically valid diagnosis? NO 2. Is Perforation intestine a clinically valid diagnosis? YES ABDOMINAL ABSCESS was documented in the 05/18 DR MATTHEWS PROGRESS NOTE with no further documentation in the medical record. Questionable perforation documented in H&P. Please document a response below. PHYSICIAN RESPONSE Diagnosis clinically valid: Other, explanation/clinical finding In responding to this query, please exercise your independent professional judgment. The purpose of this communication is to more accurately reflect the complexity of your patients condition. The fact that a question is asked does not imply that any particular answer is desired or expected. Thank you for your timely response to this clarification. Requestors name: [ ] Phone # [ ] THIS PHYSICIAN QUERY FORM IS A PERMANENT PART OF THE MEDICAL RECORD RITU MCDONALD May 24, 2017 21:48 BESS JACKSON DO Jun 03, 2017 11:16
--- NOTE | 2017-05-24 21:52 | Physician Query Clarification ---
PQ-Accidental Op Laceration Admission/Discharge Admission Date: May 15, 2017 at 14:56 Discharge Date: May 21, 2017 at 18:25 Operative Report: Unfortunately during the procedure the interventional radiologist nicked some vessel and got a lot of bleeding. Flat plate showed increasing air today compared to the previous flat plate and therefore elected to go to surgery. Question: Should this Unfortunately during the procedure the interventional radiologist nicked some vessel and got a lot of bleeding. Flat plate showed increasing air today compared to the previous flat plate and therefore elected to go to surgery. be classified as: Please document a response below. PHYSICIAN RESPONSE Classified as: A complication of the procedure (This complication is one of the risks of doing a CT guided biopsy. The complication was not during my operation, it was from the day before.) In responding to this query, please exercise your independent professional judgment. The purpose of this communication is to more accurately reflect the complexity of your patients condition. The fact that a question is asked does not imply that any particular answer is desired or expected. Thank you for your timely response to this clarification. Requestors name: [ ] Phone # [ ] THIS PHYSICIAN QUERY FORM IS A PERMANENT PART OF THE MEDICAL RECORD RITU MCDONALD May 24, 2017 21:52 BESS JACKSON DO Jun 03, 2017 11:18
--- NOTE | 2017-06-05 14:46 | Discharge Summary ---
Diagnosis/Chief Complaint Date of Admission May 15, 2017 at 14:56 Date of Discharge May 21, 2017 at 18:25 Discharge Date: May 21, 2017 Admission Diagnosis Admission Diagnosis RLQ pain PSBO R/O intestinal perforation Leukocytosis Discharge Diagnosis PSBO Microperforation of intestine, probably at previous anastomosis Acute blood loss anemia secondary to IR procedure Leukocytosis Morbid Obesity Reason Hospital Visit HPI: Pt presented to the ER for evaluation for right sided abdominal and flank pain. He has hx of Sigmoid colon resection, with SBR and appendectomy April 01, 2017. I just saw him yesterday and he looked better than he had at any previous visit. He has returned to work and was doing all normal activities. He denies any nausea vomiting or diarrhea. He did have 2 solid bowel movement this morning. He has had nothing to eat since midnight and has only had one bottle of water to drink today. He reports sudden onset of abdominal pain in the right flank/RLQ that made him diaphoretic and caused dyspnea. Timing/Duration: 1-3 Hours Severity/Quality: Moderate (6/10) Location: RLQ, Flank Radiation: No Radiation Activities at Onset: None Modifying Factors: Improves With Lying down, Improves With Resting Associated Symptoms: Diaphoresis, No Fatigue, No Nausea/Vomiting, No SOB, No Weakness Discharge Summary Procedures: IR attempted drainage of abscess Diag. Lap converted to Ex Lap with SBR and ALO Consultations interventional radiology Discharge Physical Examination Allergies: Coded Allergies: cat dander (Verified Allergy, Unknown, 02/11/17) General Appearance: Alert Respiratory: Clear to Auscultation, Normal Air Movement Cardiovascular: Regular Rate, No Murmurs Abdominal: Soft, Other (Wound Vac in place, on top of abdominal incision ) Neuro: Normal Gait, Normal Tone Psych/Mental Status: Mental Status NL Hospital Course Patient presented on May 15 with pyrexia and leukocytosis as well as right lower quadrant pain and possible partial small bowel obstruction. He also appeared to have small amount of free air near the small intestine thought to possible microperforation. He was had elevated temperature was tachycardic he was started on IV antibiotics IV fluids was made nothing by mouth. Repeat CT was performed and then the next day a abdominal x-ray. He had interventional radiology consultation for attempted drainage of the abscess around the small intestine. This was unfortunately unsuccessful. The air although microscopic; continued to increase, it was more each day and he was subsequently taken to the operating room on 05/17 for diagnostic laparoscopy, possible laparotomy, possible small bowel resection. Please see op report for results from the operation. On postoperative day 1 and he was doing a little bit better had elected to close the fascia and leave the midline open with wet-to-dry's performed. He slowly improved over the next few days; he had an NG tube and the Leiva taken out the first day. He was started on clears continued to improve and was subsequently discharged home on 05/21 in stable condition. A wound VAC had been placed with plans to have wound VAC changes as an outpatient. Please see progress notes and labs for more detailed description during the hospital stay. Discharge Instructions to patient/family Please see electonic discharge instructions given to patient. Discharge Medications Reviewed and agree with Discharge Medication list on patient's Discharge Instruction sheet Clinical Quality Measures DVT/VTE Risk/Contraindication: Risk Factor Score Per Nursin RFS Level Per Nursing on Admit: 1=Low/No VTE PPX BESS JACKSON DO Jun 05, 2017 14:46
== END 2017-05-21 18:25 | disposition home health service (06) | DRG 329 ==
LOC: EDUNIT# 12:07 → ER 12:10 → 4TH 14:56
PROVIDERS: ADMIT Surgery; ATTEND Surgery
PROC: 0DB80ZZ Excision of Small Intestine, Open Approach (ICD-10-PCS; principal; 2017-05-16)
PROC: 0DBS0ZZ (ICD-10-PCS; 2017-05-16)
PROC: 0DBV0ZX Excision of Mesentery, Open Approach, Diagnostic (ICD-10-PCS; 2017-05-16)
PROC: 0W9G30Z Drainage of Peritoneal Cavity with Drainage Device, Percutaneous Approach (ICD-10-PCS; 2017-05-16)
PROC: 0W3G4ZZ Control Bleeding in Peritoneal Cavity, Percutaneous Endoscopic Approach (ICD-10-PCS; 2017-05-16)
DX: K56.5 Intestinal adhesions [bands] with obstruction (postinfection) (principal); K63.1 Perforation of intestine (nontraumatic); N20.0 Calculus of kidney; R50.9 Fever, unspecified; K66.1 Hemoperitoneum; F32.9 Major depressive disorder, single episode, unspecified; Z53.31 Laparoscopic surgical procedure converted to open procedure; I97.52 Accidental puncture and laceration of a circulatory system organ or structure during other procedure
CPT/HCPCS: 36415; 71020; 74000; 74020; 74176; 74177; 77012; 80053; 81000; 82140; 82150; 83605; 83690; 85007; 85025; 85027; 87040; 87070; 87075; 87081; 87088; 87101; 87205; 88307; 94664; 96361; 96374; 96376

== ENCOUNTER 2017-05-24 10:28 | Outpatient (RCR) | payer BC ==
[~2017-05-24] VITALS: Ht 188 cm; Wt 144.2 kg
[~2017-05-24 10:28] MED LIST changes: +LORA10TA7 PO; +PANT40TA2 PO
[2017-05-24 12:16] VITALS: BP 112/79
== END 2017-07-27 | disposition home or self-care (01) ==
LOC: SDC 10:28
PROVIDERS: ATTEND Surgery
DX: Z48.01 Encounter for change or removal of surgical wound dressing (principal)
CPT/HCPCS: 97605

== ENCOUNTER 2017-05-27 13:59 | Outpatient (RCR) | payer BC | END 2017-05-27 16:00 | disposition home or self-care (01) | LOC: WOUNDCARE 13:59 | PROVIDERS: ATTEND Surgery | DX: L98.492 Non-pressure chronic ulcer of skin of other sites with fat layer exposed (principal); T81.31XA Disruption of external operation (surgical) wound, not elsewhere classified, initial encounter; K65.9 Peritonitis, unspecified | CPT/HCPCS: 99213 ==

== ENCOUNTER → 2017-06-05 | Outpatient (CLI) | payer BC | LOC: WOUNDCARE 08:57 | PROVIDERS: ATTEND Surgery | DX: L98.492 Non-pressure chronic ulcer of skin of other sites with fat layer exposed (principal); T81.31XA Disruption of external operation (surgical) wound, not elsewhere classified, initial encounter; K65.9 Peritonitis, unspecified | CPT/HCPCS: 11042; 11045 ==

== ENCOUNTER → 2017-06-10 | Outpatient (CLI) | payer BC | LOC: WOUNDCARE 15:02 | PROVIDERS: ATTEND Surgery | DX: L98.492 Non-pressure chronic ulcer of skin of other sites with fat layer exposed (principal); T81.31XA Disruption of external operation (surgical) wound, not elsewhere classified, initial encounter; K65.9 Peritonitis, unspecified | CPT/HCPCS: 11042; 11045 ==

== ENCOUNTER → 2017-06-17 | Outpatient (CLI) | payer BC | LOC: WOUNDCARE 08:12 | PROVIDERS: ATTEND Nurse Practitioner | DX: L98.492 Non-pressure chronic ulcer of skin of other sites with fat layer exposed (principal); T81.31XA Disruption of external operation (surgical) wound, not elsewhere classified, initial encounter; K65.9 Peritonitis, unspecified | CPT/HCPCS: 11042; 11045 ==

== ENCOUNTER → 2017-06-24 | Outpatient (CLI) | payer BC | LOC: WOUNDCARE 10:25 | PROVIDERS: ATTEND Surgery | DX: L98.492 Non-pressure chronic ulcer of skin of other sites with fat layer exposed (principal); T81.31XA Disruption of external operation (surgical) wound, not elsewhere classified, initial encounter; K65.9 Peritonitis, unspecified | CPT/HCPCS: 11042; 11045 ==

== ENCOUNTER → 2017-07-08 | Outpatient (CLI) | payer BC | LOC: WOUNDCARE 10:09 | PROVIDERS: ATTEND Surgery | DX: L98.492 Non-pressure chronic ulcer of skin of other sites with fat layer exposed (principal); T81.31XA Disruption of external operation (surgical) wound, not elsewhere classified, initial encounter; K65.9 Peritonitis, unspecified | CPT/HCPCS: 11042 ==

== ENCOUNTER → 2017-07-15 | Outpatient (CLI) | payer BC | LOC: WOUNDCARE 10:26 | PROVIDERS: ATTEND Surgery | DX: L98.492 Non-pressure chronic ulcer of skin of other sites with fat layer exposed (principal); T81.31XA Disruption of external operation (surgical) wound, not elsewhere classified, initial encounter; K65.9 Peritonitis, unspecified | CPT/HCPCS: 99212 ==

== ENCOUNTER → 2017-11-13 | Outpatient (CLI) | payer BC ==
[~2017-11-13] MED LIST changes: +BARIUM SUSPENSION 2.1% (VANILLA SILQ) 450 ML PO ONE; +IOHEXOL 350 MG/ML 100 ML (OMNIPAQUE 350) VIAL IV ONE; +NS 100 ML (IVPB) BAG IV ONE
--- NOTE | 2017-11-13 11:12 | Diagnostic Imaging Report ---
PROCEDURE: CT abdomen and pelvis with contrast. TECHNIQUE: Multiple contiguous axial images were obtained through the abdomen and pelvis after administration of intravenous contrast. INDICATION: Incisional hernia. COMPARISON: 05/15/2017 FINDINGS: The lung bases are clear. There is diffuse hepatic steatosis. No focal hepatic mass is seen. The gallbladder is unremarkable. There is no biliary dilatation. The pancreas, spleen and adrenal glands appear unremarkable. There is a 5 mm nonobstructive calculus in the mid right kidney. The kidneys are otherwise unremarkable. Ureters and bladder appear unremarkable. The appendix is absent. There are postoperative changes in the bowel. No evidence of bowel obstruction or focal inflammatory process. There is no free fluid, free air or adenopathy. Abdominal aorta is normal in caliber. There is protrusion of abdominal contents into the anterior abdominal wall although the transversalis fascia appears to be intact over a majority of this. There is however, a focal hernia defect along the right paramidline seen best on series 6 image 54. There is no evidence of strangulation or incarceration. IMPRESSION: 1. There is some thinning and anterior bowing of the anterior abdominal wall with protrusion of abdominal contents under a predominantly intact transversalis fascia although there is some focal defect in the right paramidline. There is no evidence of bowel incarceration or strangulation. 2. Diffuse hepatic steatosis. 3. No additional significant abnormality is seen. Incidental note of a small left hydrocele. Dictated by: Dictated on workstation # [id number]
== END ==
LOC: RAD 09:44
PROVIDERS: ATTEND Surgery
DX: K43.2 Incisional hernia without obstruction or gangrene (principal); K76.0 Fatty (change of) liver, not elsewhere classified
CPT/HCPCS: 74177

== ENCOUNTER 2018-10-07 14:24 | Outpatient (CLI) | payer BC ==
[~2018-10-07] VITALS: Ht 188 cm; Wt 154.7 kg
[~2018-10-07 14:24] MED LIST changes: -BARIUM SUSPENSION 2.1% (VANILLA SILQ) 450 ML PO ONE; +HYDR-4226 PO; -HYDR-757 PO; -IOHEXOL 350 MG/ML 100 ML (OMNIPAQUE 350) VIAL IV ONE; +METR-197 PO; -METR500T21 PO; -NS 100 ML (IVPB) BAG IV ONE; -PROC10TA PO; +PROC10TA10 PO
== END 2018-10-07 15:13 | disposition home or self-care (01) ==
LOC: PREOP 14:24
PROVIDERS: ATTEND Surgery
DX: Z01.818 Encounter for other preprocedural examination (principal)

== ENCOUNTER 2021-08-13 11:28 | Emergency (ER) | payer BC ==
[~2021-08-13] VITALS: Ht 188 cm; Wt 147.0 kg
[~2021-08-13 11:28] MED LIST changes: -CIPR500T4 PO; +CIPR500T5 PO; +METR-145 PO; -METR-197 PO; -OXYC-471 PO; +OXYC1TAB11 PO; +OXYC1TAB12 PO; -PANT40TA3 PO; +PANT40TA52 PO
[2021-08-13 11:34] VITALS: BP 146/83
[2021-08-13] MEDS ORDERED: KETOROLAC 30 MG/ML VIAL IVP ONE (11:45)
[2021-08-13] MEDS ORDERED: LACTATED RINGERS 1,000 ML IV SCH (11:45)
[2021-08-13 11:55] LABS: BASOPHILS # (AUTO) 0.1 10^3/uL (0.0-0.1); BASOPHILS % (AUTO) 1 % (0-10); EOSINOPHILS # (AUTO) 0.3 10^3/uL (0.0-0.3); EOSINOPHILS % (AUTO) 3 % (0-10); HEMATOCRIT 46 % (40-54); HEMOGLOBIN 15.9 g/dL (13.3-17.7); LYMPHOCYTES # (AUTO) 2.4 10^3/uL (1.0-4.0); LYMPHOCYTES % (AUTO) 24 % (12-44); MEAN CORPUSCULAR HEMOGLOBIN 31 pg (25-34); MEAN CORPUSCULAR HGB CONC 35 g/dL (32-36); MEAN CORPUSCULAR VOLUME 88 fL (80-99); MEAN PLATELET VOLUME 9.4 fL (9.0-12.2); MONOCYTES # (AUTO) 0.5 10^3/uL (0.0-1.0); MONOCYTES % (AUTO) 5 % (0-12); NEUTROPHILS # (AUTO) 6.8 10^3/uL (1.8-7.8); NEUTROPHILS % (AUTO) 67 % (42-75); PLATELET COUNT 280 10^3/uL (130-400); WHITE BLOOD COUNT 10.1 10^3/uL (4.3-11.0)
--- NOTE | 2021-08-13 11:57 | ED Abdominal Pain ---
General Stated Complaint: LEFT FLANK PAIN Source of Information: Patient Exam Limitations: No Limitations (YESY MOSS APRN) History of Present Illness Date Seen by Provider: Aug 13, 2021 Time Seen by Provider: 11:56 Initial Comments To ER with left lower quadrant abdominal pain onset this morning about 5:30 AM. History of kidney stones most recently about 3 years ago and this feels similar. He also has ulcerative colitis not on any medication for that and is concerned that may be contributing to his symptoms. Timing/Duration: 1-2 Days Severity/Quality: Moderate Location: LLQ Radiation: No Radiation Activities at Onset: None Associated Symptoms: Nausea/Vomiting (YESY MOSS APRN) Allergies and Home Medications Allergies Coded Allergies: cat dander (Verified Allergy, Unknown, 02/11/17) Patient Home Medication List Home Medication List Reviewed: Yes (YESY MOSS APRN) Hydrocodone/Acetaminophen (Hydrocodone-Acetamin 5-325 mg) 1 Each Tablet, 1 TAB PO Q4H PRN for PAIN-MODERATE (5-7) Prescribed by: YESY MOSS on 08/13/21 1222 Ibuprofen (Ibuprofen) 800 Mg Tablet, 800 MG PO Q8H PRN for PAIN-MILD Prescribed by: YESY MOSS on 08/13/21 1222 Oxycodone HCl/Acetaminophen (Percocet 10-325 mg Tablet) 1 Each Tablet, 1 TAB PO Q6H PRN for PAIN-MODERATE Prescribed by: BESS JACKSON on 10/15/18 1514 Tamsulosin HCl (Flomax) 0.4 Mg Cap, 0.4 MG PO DAILY Prescribed by: YESY MOSS on 08/13/21 1222 Review of Systems Review of Systems Constitutional: see HPI EENTM: No Symptoms Reported Respiratory: No Symptoms Reported Cardiovascular: No Symptoms Reported Gastrointestinal: See HPI, Abdominal Pain Genitourinary: No Symptoms Reported Musculoskeletal: no symptoms reported Skin: no symptoms reported Psychiatric/Neurological: No Symptoms Reported Endocrine: No Symptoms Reported Hematologic/Lymphatic: No Symptoms Reported (YESY MOSS APRN) Past Ywhuydg-Arhtvy-Uxrrer Hx Immunizations Up To Date Tetanus Booster (TDap): Unknown (YESY MOSS APRN) Seasonal Allergies Seasonal Allergies: Yes (HAY FEVER) (YESY MOSS APRN) Past Medical History Surgeries: Yes Abdominal, Appendectomy Respiratory: No Currently Using CPAP: No Currently Using BIPAP: No Cardiac: No Neurological: No Reproductive Disorders: No Genitourinary: No (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, freq UTI's) Gastrointestinal: Yes Abdominal Hernia, Diverticulosis Musculoskeletal: No Endocrine: No HEENT: No Loss of Vision: Denies Hearing Impairment: Denies Cancer: No Psychosocial: No Violent Behavior Integumentary: No Blood Disorders: No Adverse Reaction/Blood Tranf: No (YESY MOSS APRN) Family Medical History Diabetes mellitus 19 FATHER 19 MOTHER Diabetes, GI Disease (YESY MOSS APRN) Physical Exam Vital Signs Vital Signs - First Documented 08/13/21 11:34 Temp 35.9 Pulse 53 Resp 22 B/P (MAP) 146/83 (104) Pulse Ox 98 O2 Delivery Room Air (SANDY ALEJANDRO MD) Vital Signs Capillary Refill : (YESY MOSS APRN) Height/Weight/BMI Height: 6'2.00" Weight: 343lbs. 2.0oz. 155.360321hl; 44.1 BMI Method:Stated General Appearance: WD/WN, no apparent distress HEENT: PERRL/EOMI, normal ENT inspection Respiratory: no respiratory distress, no accessory muscle use Cardiovascular: regular rate, rhythm, no edema Gastrointestinal: normal bowel sounds, non tender, soft Extremities: normal range of motion, non-tender Neurologic/Psychiatric: alert, normal mood/affect, oriented x 3 Skin: normal color, warm/dry (YESY MOSS APRN) Progress/Results/Core Measures Results/Orders Lab Results Laboratory Tests Test 08/13/21 11:48 08/13/21 12:38 Range/Units White Blood Count 10.1 4.3-11.0 10^3/uL Red Blood Count 5.22 4.30-5.52 10^6/uL Hemoglobin 15.9 13.3-17.7 g/dL Hematocrit 46 40-54 % Mean Corpuscular Volume 88 80-99 fL Mean Corpuscular Hemoglobin 31 25-34 pg Mean Corpuscular Hemoglobin Concent 35 32-36 g/dL Red Cell Distribution Width 13.1 10.0-14.5 % Platelet Count 280 130-400 10^3/uL Mean Platelet Volume 9.4 9.0-12.2 fL Immature Granulocyte % (Auto) 0 % Neutrophils (%) (Auto) 67 42-75 % Lymphocytes (%) (Auto) 24 12-44 % Monocytes (%) (Auto) 5 0-12 % Eosinophils (%) (Auto) 3 0-10 % Basophils (%) (Auto) 1 0-10 % Neutrophils # (Auto) 6.8 1.8-7.8 10^3/uL Lymphocytes # (Auto) 2.4 1.0-4.0 10^3/uL Monocytes # (Auto) 0.5 0.0-1.0 10^3/uL Eosinophils # (Auto) 0.3 0.0-0.3 10^3/uL Basophils # (Auto) 0.1 0.0-0.1 10^3/uL Immature Granulocyte # (Auto) 0.0 0.0-0.1 10^3/uL Sodium Level 140 135-145 MMOL/L Potassium Level 3.9 3.6-5.0 MMOL/L Chloride Level 105 98-107 MMOL/L Carbon Dioxide Level 22 21-32 MMOL/L Anion Gap 13 5-14 MMOL/L Blood Urea Nitrogen 12 7-18 MG/DL Creatinine 0.97 0.60-1.30 MG/DL Estimat Glomerular Filtration Rate 90 BUN/Creatinine Ratio 12 Glucose Level 115 H 70-105 MG/DL Calcium Level 9.6 8.5-10.1 MG/DL Corrected Calcium 9.2 8.5-10.1 MG/DL Total Bilirubin 1.0 0.1-1.0 MG/DL Aspartate Amino Transf (AST/SGOT) 35 H 5-34 U/L Alanine Aminotransferase (ALT/SGPT) 61 H 0-55 U/L Alkaline Phosphatase 54 40-136 U/L Total Protein 8.2 6.4-8.2 GM/DL Albumin 4.5 3.2-4.5 GM/DL Urine Color YELLOW Urine Clarity SL CLOUDY Urine pH 6.0 5-9 Urine Specific [place] 1.025 H 1.016-1.022 Urine Protein NEGATIVE NEGATIVE Urine Glucose (UA) NEGATIVE NEGATIVE Urine Ketones NEGATIVE NEGATIVE Urine Nitrite NEGATIVE NEGATIVE Urine Bilirubin NEGATIVE NEGATIVE Urine Urobilinogen 0.2 < = 1.0 MG/DL Urine Leukocyte Esterase NEGATIVE NEGATIVE Urine RBC (Auto) 3+ H NEGATIVE Urine RBC 5-10 H /HPF Urine WBC NONE /HPF Urine Squamous Epithelial Cells RARE /HPF Urine Crystals NONE /LPF Urine Bacteria NEGATIVE /HPF Urine Casts NONE /LPF Urine Mucus SMALL H /LPF Urine Culture Indicated NO (SANDY ALEJANDRO MD) Vital Signs/I&O 08/13/21 11:34 Temp 35.9 Pulse 53 Resp 22 B/P (MAP) 146/83 (104) Pulse Ox 98 O2 Delivery Room Air (SANDY ALEJANDRO MD) Departure Impression Primary Impression: Left ureteral stone Disposition: HOME, SELF-CARE Condition: Stable Departure-Patient Inst. Decision time for Depature: 12:20 (YESY MOSS APRN) Referrals: GILDARDO VALERA MD (PCP/Family) Primary Care Physician Patient Instructions: Kidney Stones (DC) Add. Discharge Instructions: Return to ER for any concenrs. Pain medication as directed. Follow-up with Dr. Castillo if you have not passed the stone in the next 2 days. Scripts Tamsulosin HCl (Flomax) 0.4 Mg Cap 0.4 MG PO DAILY, #10 CAP Prov: YESY MOSS APRN 08/13/21 Ibuprofen (Ibuprofen) 800 Mg Tablet 800 MG PO Q8H PRN for PAIN-MILD, #20 TAB Prov: YESY MOSS APRN 08/13/21 Hydrocodone/Acetaminophen (Hydrocodone-Acetamin 5-325 mg) 1 Each Tablet 1 TAB PO Q4H PRN for PAIN-MODERATE (5-7), #10 TAB Prov: YESY MOSS APRN 08/13/21 ATTENDING PHYSICIAN NOTE: I was physically present as attending physician in the emergency department during the care of this patient, but I was not directly involved in the decision making or delivery of care for this patient. (SANDY ALEJANDRO MD) YESY MOSS APRN Aug 13, 2021 11:57 SANDY ALEJANDRO MD Aug 15, 2021 07:19
[2021-08-13 12:09] LABS: ALBUMIN 4.5 GM/DL (3.2-4.5); POTASSIUM 3.9 MMOL/L (3.6-5.0)
[2021-08-13 12:10] LABS: CALCIUM 9.6 MG/DL (8.5-10.1)
[2021-08-13 12:12] LABS: TOTAL PROTEIN 8.2 GM/DL (6.4-8.2)
[2021-08-13 12:15] LABS: CREATININE SERUM 0.97 MG/DL (0.60-1.30)
[2021-08-13] MEDS ORDERED: IBUP-1780 PO (12:22)
[2021-08-13] MEDS ORDERED: TMSL.4C PO (12:22)
[2021-08-13] MEDS ORDERED: ACHD5005 PO (12:22)
--- NOTE | 2021-08-13 12:23 | Diagnostic Imaging Report ---
EXAMINATION: Abdominal radiographs, single supine view, 2 images. DATE: August 13, 2021. CLINICAL INDICATION: 31-year-old male, left lower quadrant abdominal pain. COMPARISON: May 17, 2017. COMMENTS: There is no identified free intraperitoneal air, pneumatosis, or portal venous gas. There is a moderate volume stool in the right colon. There are no grossly distended gas-filled segments of bowel. There are bilateral renal stones. There is a small calcification in the region of the left-sided urinary bladder which may relate to a distal ureteral stone. IMPRESSION: 1. Bilateral renal stones with potential stone in the left distal ureter. 2. Unremarkable bowel gas pattern. Dictated by: Dictated on workstation # [id number]
--- NOTE | 2021-08-13 12:25 | Diagnostic Imaging Report ---
PROCEDURE: CT urinary tract, rule out kidney stone. TECHNIQUE: Multiple contiguous axial images were obtained through the abdomen and pelvis without the use of intravenous contrast. Auto Exposure Controls were utilized during the CT exam to meet ALARA standards for radiation dose reduction. INDICATION: Flank pain. COMPARISON: CT abdomen and pelvis with IV contrast 11/13/2017. FINDINGS: 0.2 cm renal stone in the left ureteropelvic junction results in mild to moderate left hydronephrosis. There are additional nonobstructing calyceal tip renal stones in both kidneys measuring up to 0.3 cm on the left and 0.8 cm on the right. The lung bases are clear. The liver, gallbladder, pancreas, spleen, and adrenals are negative on this noncontrast exam. No free intraperitoneal air or fluid. Appendectomy. Sigmoid anastomosis. No lymphadenopathy. No acute osseous findings. IMPRESSION: Obstructing 0.2 cm renal stone in the left ureterovesicular junction resulting in mild to moderate left hydronephrosis. Dictated by: Dictated on workstation # [id number]
[2021-08-13 13:01] LABS: BILIRUBIN,URINE NEGATIVE (NEGATIVE); CLARITY,URINE SL CLOUDY; COLOR,URINE YELLOW; GLUCOSE, URINE (UA) NEGATIVE (NEGATIVE); KETONES,URINE NEGATIVE (NEGATIVE); LEUKOCYTE ESTERASE ,URINE NEGATIVE (NEGATIVE); NITRITE,URINE NEGATIVE (NEGATIVE); PROTEIN,URINE NEGATIVE (NEGATIVE)
[2021-08-13 13:10] LABS: BACTERIA,URINE NEGATIVE /HPF; SQUAMOUS EPITHELIAL CELL,UR RARE /HPF
== END 2021-08-13 13:18 | disposition home or self-care (01) ==
LOC: EDUNIT# 11:28 → ER 11:31
DX: N13.2 Hydronephrosis with renal and ureteral calculous obstruction (principal)
CPT/HCPCS: 36415; 74018; 74176; 80053; 81000; 85025

== ENCOUNTER 2022-01-06 04:39 | Emergency (ER) | payer BC ==
[~2022-01-06] VITALS: Ht 188 cm; Wt 150.0 kg
[~2022-01-06 04:39] MED LIST changes: +ACHD5005 PO; +IBUP-1780 PO; +TMSL.4C PO
[2022-01-06] MEDS ORDERED: fentaNYL INJ 100 MCG/2 ML AMP IVP STA (04:59)
[2022-01-06] MEDS ORDERED: KETOROLAC 30 MG/ML VIAL IVP STA (04:59)
[2022-01-06] MEDS ORDERED: NS IV 1000 ML 1,000 ML IV STA (04:59)
--- NOTE | 2022-01-06 05:00 | ED GU-Male ---
General Chief Complaint: - Reproductive Stated Complaint: POSS KIDNEY STONES Nursing Triage Note: left lower abdominal pain similiar to previous kidney stones since 0100. Source: patient Exam Limitations: no limitations (YOLANDA [place] MED STUDENT) History of Present Illness Date Seen by Provider: Jan 06, 2022 Time Seen by Provider: 04:50 Initial Comments Mr. Cano is a 31yo male with PMH of kidney stones and diverticulitis requiring hemicolectomy who presents to the ED today due to pain in L groin area that feels similar to kidney stones. He had a kidney stone last year in july and he states this feels pretty similar to that time. Did not have any symptoms prior to today. Woke up this morning around 0100 with a sharp pain in his L groin he rated about a 3 or 4 and gradually increased up to a 6. He tried taking some hydrocodone and flomax but has not had any relief. Did not note anything that makes the pain worse or better. Is not having any other symptoms, denies dysuria or changes in bowel habits. He does not smoke, drink, or do drugs. (YOLANDA [place] MED STUDENT) Timing/Duration: this morning Severity/Quality: moderate, severe Location: LLQ Radiation: suprapubic, left flank Activities at Onset: none Prior Genitourinary Problems: similar symptoms Associated Symptoms: abdominal pain, dysuria; No fever/chills, No lower back pain, No nausea/vomiting; urinary frequency (EVA VERMA MD) Allergies and Home Medications Allergies Coded Allergies: cat dander (Verified Allergy, Unknown, 02/11/17) Patient Home Medication List Home Medication List Reviewed: Yes (EVA VERMA MD) Ciprofloxacin HCl (Ciprofloxacin HCl) 500 Mg Tablet, 500 MG PO BID Prescribed by: SANDY VIDALES on 01/06/22 0636 Hydrocodone/Acetaminophen (Hydrocodone-Acetamin 5-325 mg) 1 Each Tablet, 1 TAB PO Q4H PRN for PAIN-MODERATE (5-7) Prescribed by: YESY MOSS on 08/13/21 1222 Hydrocodone/Acetaminophen (Hydrocodone-Acetamin 5-325 mg) 1 Each Tablet, 1 TAB PO Q4H PRN for PAIN-MODERATE (5-7) Prescribed by: SANDY VIDALES on 01/06/2236 Ondansetron (Ondansetron Odt) 4 Mg Tab.rapdis, 4 MG SL Q4H PRN for NAUSEA/VOMITING Prescribed by: SANDY VIDALES on 01/06/2236 Discontinued Medications Ibuprofen (Ibuprofen) 800 Mg Tablet, 800 MG PO Q8H PRN for PAIN-MILD Discontinued Reason: No Longer Taking Prescribed by: YESY MOSS on 08/13/21 1222 Last Action: Discontinued Oxycodone HCl/Acetaminophen (Percocet 10-325 mg Tablet) 1 Each Tablet, 1 TAB PO Q6H PRN for PAIN-MODERATE Discontinued Reason: No Longer Taking Prescribed by: BESS JACKSON on 10/15/18 1514 Last Action: Discontinued Tamsulosin HCl (Flomax) 0.4 Mg Cap, 0.4 MG PO DAILY Discontinued Reason: No Longer Taking Prescribed by: YESY MOSS on 08/13/21 1222 Last Action: Discontinued Review of Systems Review of Systems Constitutional: No chills, No fever EENTM: No hearing loss, No vision loss Respiratory: No cough, No short of breath Cardiovascular: No chest pain, No edema, No palpitations Gastrointestinal: abdominal pain (LLQ/Groin); No constipation, No diarrhea, No melena, No nausea, No vomiting Genitourinary: denies dysuria, denies frequency; flank pain (Mild L side); denies hematuria, denies pain Musculoskeletal: No joint pain, No joint swelling Skin: No pruritus, No rash Psychiatric/Neurological: Denies Headache, Denies Numbness ([employer]DA [place] MED STUDENT) Constitutional: No chills, No fever Respiratory: No cough, No short of breath Gastrointestinal: abdominal pain (LLQ/Groin); No nausea, No vomiting Genitourinary: see HPI, pain Skin: no symptoms reported Psychiatric/Neurological: No Symptoms Reported (EVA VERMA MD) All Other Systemes Reviewed Negative Unless Noted: Yes (EVA VERMA MD) Past Glmxvpn-Trnutn-Wvibqg Hx Patient Social History Tobacco Use?: No Substance use?: No Alcohol Use?: No Pt feels they are or have been: No (YOLANDA [place] STUDENT) Tobacco Use?: No Use of E-Cig and/or Vaping dev: No Substance use?: No Alcohol Use?: No (EVA VERMA MD) Immunizations Up To Date Tetanus Booster (TDap): Unknown (YOLANDA [place]) Seasonal Allergies Seasonal Allergies: Yes (HAY FEVER) (YOLANDA [place]) Past Medical History Surgery/Hospitalization HX: HX: UC AND KIDNEY STONES SX: 2 COLON RESECTIONS, HERNIA SX Surgeries: Yes Abdominal, Appendectomy Respiratory: No Currently Using CPAP: No Currently Using BIPAP: No Cardiac: No Neurological: No Reproductive Disorders: No Genitourinary: No (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, freq UTI's) Gastrointestinal: Yes Abdominal Hernia, Diverticulosis Musculoskeletal: No Endocrine: No HEENT: No Loss of Vision: Denies Hearing Impairment: Denies Cancer: No Psychosocial: No Violent Behavior Integumentary: No Blood Disorders: No Adverse Reaction/Blood Tranf: No (YOLANDA [place]) Family Medical History Reviewed Nursing Family Hx (EVA VERMA MD) Diabetes mellitus 19 FATHER 19 MOTHER Diabetes, GI Disease (YOLANDA [place]) Physical Exam Vital Signs Vital Signs - First Documented 01/06/22 04:46 Temp 37.3 Pulse 56 Resp 16 B/P (MAP) 155/98 (117) Pulse Ox 97 O2 Delivery Room Air (EVA VERMA MD) Vital Signs Capillary Refill : Less Than 3 Seconds (YOLANDA [place]) Height, Weight, BMI Height: 6'2.00" Weight: 343lbs. 2.0oz. 155.189659nx; 42.00 BMI Method:Stated General Appearance: WD/WN, mild distress (uncomfortable), obese Cardiovascular: regular rate, rhythm, no edema, no murmur Respiratory: chest non-tender, lungs clear, normal breath sounds Gastrointestinal: normal bowel sounds, soft, tenderness (Had some tenderness on LLQ palpation) Back: no vertebral tenderness, CVA tenderness (L) (mild) Extremities: no pedal edema, no calf tenderness, normal capillary refill Neurologic/Psychiatric: alert, normal mood/affect, oriented x 3 Skin: normal color, warm/dry (YOLANDA [place]) General Appearance: WD/WN, mild distress (uncomfortable) HEENT: PERRL/EOMI, pharynx normal Neck: full range of motion, supple Cardiovascular: regular rate, rhythm, no edema, no murmur Respiratory: lungs clear, normal breath sounds Gastrointestinal: soft, tenderness (mild tenderness on LLQ palpation) Back: normal inspection, no CVA tenderness; No CVA tenderness (R); CVA tenderness (L) (mild) Extremities: no pedal edema, no calf tenderness Neurologic/Psychiatric: alert, oriented x 3 Skin: normal color, warm/dry (EVA VERMA MD) Progress/Results/Core Measures Suspected Sepsis SIRS Temperature: Pulse: 56 Respiratory Rate: 16 Laboratory Tests 01/06/22 05:10: Blood Pressure 155 /98 Mean: 117 Laboratory Tests 01/06/22 05:10: (YOLANDA [place] MED STUDENT) Results/Orders Lab Results Laboratory Tests Test 01/06/22 05:00 01/06/22 05:10 Range/Units Urine Color DARK YELLOW Urine Clarity CLOUDY Urine pH 5.5 5-9 Urine Specific Bryan >=1.030 1.016-1.022 Urine Protein 2+ H NEGATIVE Urine Glucose (UA) NEGATIVE NEGATIVE Urine Ketones NEGATIVE NEGATIVE Urine Nitrite NEGATIVE NEGATIVE Urine Bilirubin NEGATIVE NEGATIVE Urine Urobilinogen 1.0 < = 1.0 MG/DL Urine Leukocyte Esterase NEGATIVE NEGATIVE Urine RBC (Auto) 3+ H NEGATIVE Urine RBC TNTC H /HPF Urine WBC 5-10 H /HPF Urine Squamous Epithelial Cells 0-2 /HPF Urine Crystals NONE /LPF Urine Bacteria FEW H /HPF Urine Casts NONE /LPF Urine Mucus MODERATE H /LPF Urine Culture Indicated YES White Blood Count 11.2 H 4.3-11.0 10^3/uL Red Blood Count 4.91 4.30-5.52 10^6/uL Hemoglobin 15.0 13.3-17.7 g/dL Hematocrit 44 40-54 % Mean Corpuscular Volume 89 80-99 fL Mean Corpuscular Hemoglobin 31 25-34 pg Mean Corpuscular Hemoglobin Concent 35 32-36 g/dL Red Cell Distribution Width 13.2 10.0-14.5 % Platelet Count 259 130-400 10^3/uL Mean Platelet Volume 9.5 9.0-12.2 fL Immature Granulocyte % (Auto) 1 % Neutrophils (%) (Auto) 81 H 42-75 % Lymphocytes (%) (Auto) 12 12-44 % Monocytes (%) (Auto) 5 0-12 % Eosinophils (%) (Auto) 1 0-10 % Basophils (%) (Auto) 1 0-10 % Neutrophils # (Auto) 9.0 H 1.8-7.8 10^3/uL Lymphocytes # (Auto) 1.3 1.0-4.0 10^3/uL Monocytes # (Auto) 0.6 0.0-1.0 10^3/uL Eosinophils # (Auto) 0.1 0.0-0.3 10^3/uL Basophils # (Auto) 0.1 0.0-0.1 10^3/uL Immature Granulocyte # (Auto) 0.1 0.0-0.1 10^3/uL Sodium Level 138 135-145 MMOL/L Potassium Level 4.1 3.6-5.0 MMOL/L Chloride Level 103 98-107 MMOL/L Glucose Level 138 H 70-105 MG/DL Calcium Level 9.2 8.5-10.1 MG/DL Corrected Calcium 8.9 8.5-10.1 MG/DL Total Protein 7.8 6.4-8.2 GM/DL Albumin 4.4 3.2-4.5 GM/DL (EVA VERMA MD) My Orders Orders - EVA VERMA MD Ns Iv 1000 Ml (Sodium Chloride 0.9%) (01/06/22 04:59) Ed Iv/Invasive Line Start (01/06/22 04:59) Cbc With Automated Diff (01/06/22 04:59) Comprehensive Metabolic Panel (01/06/22 04:59) Ua Culture If Indicated (01/06/22 04:59) Fentanyl Inj (Sublimaze Injection) (01/06/22 04:59) Ketorolac Injection (Toradol Injection) (01/06/22 04:59) Urine Culture (01/06/22 05:00) Ct Abd/Pelvis Wo(Kidney Stone) (01/06/22 05:39) (EVA VERMA MD) Vital Signs/I&O 01/06/22 04:46 Temp 37.3 Pulse 56 Resp 16 B/P (MAP) 155/98 (117) Pulse Ox 97 O2 Delivery Room Air (EVA VERMA MD) Vital Signs/I&O Capillary Refill : Less Than 3 Seconds ([employer]DA [place] MED STUDENT) Blood Pressure Mean: 117 Progress Note : Time: 05:00 Progress Note Patients symptoms are a mixed picture between diverticulitis and kidney stones. He has had both in the past. States this feels more like kidney stones but he is not having any nausea or vomiting, CVA tenderness is mild. His pain is more in the LLQ, states he can feel it a bit in his bladder. This would correlate more with diverticulitis but also could be referred pain from ureters into groin area. Will check basic labs and urine. Presence or absence of blood in the urine will guide decision on which CT to perform. Will also give toradol and fentanyl. Give fluids. 0539: UA positive for blood in urine, will order CT stone protocol ([employer]DA [place] MED STUDENT) Progress Note : Progress Note I have seen and evaluated the patient and agree with above except as indicated. Agreed with plan of care. Patient is here with left lower quadrant and to lesser extent left flank and suprapubic pain. Does have history of kidney stones but also has history of diverticulitis with multiple bowel resections and hernia repair. Denies fever chills. Acute onset at 1 AM and feels similar to previous. He did try hydrocodone and Flomax without relief. Presents with persisting pain. Evaluation as above. Plan for IV fluid with normal saline 1 L bolus, will check basic labs get UA with decision on CT after. 0540: UA is positive for gross blood with too numerous to count reds. CT abdomen pelvis kidney stone protocol ordered. Monitor patient. 0550: Feeling a little better. Monitor patient. (EVA VERMA MD) Progress Note : Time: 06:[address] scan confirmed stone in the distal ureter with hydronephrosis. Patient discharged with prescriptions. He had no questions for me at time of discharge. (SANDY ALEJANDRO MD) Diagnostic Imaging Diagonstic Imaging: CT Plain Films/CT/US/NM/MRI: abdomen, pelvis Comments CT scan viewed by me and report reviewed. See report below: NAME: WON CANO MED REC#: [id number] PT STATUS: REG ER : 1990 PHYSICIAN: EVA VERMA MD ADMIT DATE: 01/06/22/ER Draft Date of Exam:01/06/22 CT ABD/PELVIS WO(KIDNEY STONE) EXAMINATION: CT abdomen and pelvis without contrast. TECHNIQUE: Multiple contiguous axial images were obtained through the abdomen and pelvis without the use of intravenous contrast. All CT scans use one or more of the following dose optimizing techniques: automated exposure control, MA and/or KvP adjustment based on patient size and exam type or iterative reconstruction. HISTORY: Flank pain, kidney stone suspected COMPARISON: 08/13/2021 FINDINGS: Lung bases: The lung bases are clear. Solid organs: The liver is normal. The gallbladder is normal. There is no biliary ductal dilation. Pancreas is normal. Spleen is normal. Adrenal glands are normal. A 0.8 cm nonobstructing right renal calculus is present. There is a 0.5 cm calculus within the distal left ureter which results in mild left hydronephrosis. Nonobstructing 0.3 cm left renal calculus. Bowel: The stomach and small bowel are normal without obstruction. There are a few scattered colonic diverticula. Surgical changes of the bowel. Peritoneum: There is no intraperitoneal free fluid or free air. No suspicious lymphadenopathy. Vasculature: Normal without aneurysm. Musculoskeletal: No suspicious osseous lesion or compression fracture. Pelvis: The prostate gland is normal. The urinary bladder is normal. IMPRESSION: 1. A 0.5 cm calculus within the distal left ureter at the ureterovesicular junction resulting in mild left hydronephrosis. 2. Additional nonobstructing renal calculi measuring up to 0.8 cm. Dictated on workstation # [id number] Dict: 01/06/22 0615 Trans: 01/06/22 0627 [facility] [id number] Interpreted by: FE DUNBAR DO Diagonstic Imaging: Xray Plain Films/CT/US/NM/MRI: abdomen, pelvis Comments NAME: WON CANO MED REC#: [id number] PT STATUS: REG ER : 1990 PHYSICIAN: EVA VERMA MD ADMIT DATE: 01/06/22/ER Draft Date of Exam:01/06/22 ABDOMEN/KUB 1VIEW EXAMINATION: Abdomen 1 view HISTORY: abdomen pain COMPARISON: 08/13/2021 FINDINGS: There is a moderate amount of gas and stool throughout the colon. Nonobstructive bowel gas pattern. No radiopaque foreign body. There is a calcification overlying the right kidney measuring 0.6 cm. The lung bases are clear. The osseous structures are intact. IMPRESSION: Moderate stool burden without other acute abnormality in the abdomen. A likely 0.6 cm right renal calculus. Dictated on workstation # [id number] Dict: 01/06/2214 Trans: 01/06/22 06 [facility] [id number] Interpreted by: FE DUNBAR DO (SANDY ALEJANDRO MD) Departure Impression Primary Impression: Left ureteral stone Additional Impression: Left lower quadrant pain Disposition: HOME, SELF-CARE Condition: Improved Departure-Patient Inst. Decision time for Depature: 06:33 (SANDY ALEJANDRO MD) Referrals: GILDARDO VALERA MD (PCP/Family) Primary Care Physician Patient Instructions: Kidney Stone, Adult ED Add. Discharge Instructions: Drink plenty of clear liquids to stay well-hydrated. Strain your urine and bring any stones collected to your follow-up appointment. Follow-up with Dr. Levine or the urologist of your choice as soon as possible. Contact information is below for your convenience. You do have multiple kidney stones still in the kidneys that may cause problems in the future and should be addressed with your urologist. Use hydrocodone as prescribed for pain. Use Zofran as prescribed for nausea and vomiting. Complete antibiotic as prescribed to prevent infection. Call with questions or concerns. Return to care if you have worsening symptoms despite following these instructions. All discharge instructions reviewed with patient and/or family. Voiced understanding. Scripts Ondansetron (Ondansetron Odt) 4 Mg Tab.rapdis 4 MG SL Q4H PRN for NAUSEA/VOMITING, #10 TAB Prov: SANDY ALEJANDRO MD 01/06/22 Ciprofloxacin HCl (Ciprofloxacin HCl) 500 Mg Tablet 500 MG PO BID, #14 TAB Prov: SANDY ALEJANDRO MD 01/06/22 Hydrocodone/Acetaminophen (Hydrocodone-Acetamin 5-325 mg) 1 Each Tablet 1 TAB PO Q4H PRN for PAIN-MODERATE (5-7), #10 TAB Prov: SANDY ALEJANDRO MD 01/06/22 Copy Copies To 1: DANIELA LEVINE MD, DEREK MED STUDENT Jan 06, 2022 05:00 EVA VERMA MD Jan 06, 2022 05:51 SANDY ALEJANDRO MD Jan 06, 2022 06:38
[2022-01-06 05:09] LABS: CLARITY,URINE CLOUDY; GLUCOSE, URINE (UA) NEGATIVE (NEGATIVE); KETONES,URINE NEGATIVE (NEGATIVE); LEUKOCYTE ESTERASE ,URINE NEGATIVE (NEGATIVE); NITRITE,URINE NEGATIVE (NEGATIVE); PH,URINE 5.5 (5-9); PROTEIN,URINE 2+ (NEGATIVE)
[2022-01-06 05:29] LABS: BASOPHILS # (AUTO) 0.1 10^3/uL (0.0-0.1); BASOPHILS % (AUTO) 1 % (0-10); EOSINOPHILS # (AUTO) 0.1 10^3/uL (0.0-0.3); EOSINOPHILS % (AUTO) 1 % (0-10); HEMATOCRIT 44 % (40-54); LYMPHOCYTES # (AUTO) 1.3 10^3/uL (1.0-4.0); LYMPHOCYTES % (AUTO) 12 % (12-44); MEAN CORPUSCULAR HEMOGLOBIN 31 pg (25-34); MEAN CORPUSCULAR HGB CONC 35 g/dL (32-36); MEAN CORPUSCULAR VOLUME 89 fL (80-99); MEAN PLATELET VOLUME 9.5 fL (9.0-12.2); MONOCYTES # (AUTO) 0.6 10^3/uL (0.0-1.0); MONOCYTES % (AUTO) 5 % (0-12); NEUTROPHILS % (AUTO) 81 % (42-75); PLATELET COUNT 259 10^3/uL (130-400); WHITE BLOOD COUNT 11.2 10^3/uL (4.3-11.0)
[2022-01-06 05:34] LABS: BILIRUBIN,URINE NEGATIVE (NEGATIVE); COLOR,URINE DARK YELLOW
[2022-01-06 05:35] LABS: RBC,URINE TNTC /HPF
[2022-01-06 05:36] LABS: BACTERIA,URINE FEW /HPF; SQUAMOUS EPITHELIAL CELL,UR 0-2 /HPF
[2022-01-06 05:41] LABS: ALBUMIN 4.4 GM/DL (3.2-4.5)
[2022-01-06 05:42] LABS: POTASSIUM 4.1 MMOL/L (3.6-5.0)
[2022-01-06 05:43] LABS: CALCIUM 9.2 MG/DL (8.5-10.1)
[2022-01-06 05:44] LABS: TOTAL PROTEIN 7.8 GM/DL (6.4-8.2)
[2022-01-06 05:46] LABS: BILIRUBIN,TOTAL 0.7 MG/DL (0.1-1.0)
[2022-01-06 05:48] LABS: CREATININE SERUM 1.05 MG/DL (0.60-1.30)
--- NOTE | 2022-01-06 06:25 | Diagnostic Imaging Report ---
EXAMINATION: Abdomen 1 view HISTORY: abdomen pain COMPARISON: 08/13/2021 FINDINGS: There is a moderate amount of gas and stool throughout the colon. Nonobstructive bowel gas pattern. No radiopaque foreign body. There is a calcification overlying the right kidney measuring 0.6 cm. The lung bases are clear. The osseous structures are intact. IMPRESSION: Moderate stool burden without other acute abnormality in the abdomen. A likely 0.6 cm right renal calculus. Dictated by: Dictated on workstation # [id number]
--- NOTE | 2022-01-06 06:27 | Diagnostic Imaging Report ---
EXAMINATION: CT abdomen and pelvis without contrast. TECHNIQUE: Multiple contiguous axial images were obtained through the abdomen and pelvis without the use of intravenous contrast. All CT scans use one or more of the following dose optimizing techniques: automated exposure control, MA and/or KvP adjustment based on patient size and exam type or iterative reconstruction. HISTORY: Flank pain, kidney stone suspected COMPARISON: 08/13/2021 FINDINGS: Lung bases: The lung bases are clear. Solid organs: The liver is normal. The gallbladder is normal. There is no biliary ductal dilation. Pancreas is normal. Spleen is normal. Adrenal glands are normal. A 0.8 cm nonobstructing right renal calculus is present. There is a 0.5 cm calculus within the distal left ureter which results in mild left hydronephrosis. Nonobstructing 0.3 cm left renal calculus. Bowel: The stomach and small bowel are normal without obstruction. There are a few scattered colonic diverticula. Surgical changes of the bowel. Peritoneum: There is no intraperitoneal free fluid or free air. No suspicious lymphadenopathy. Vasculature: Normal without aneurysm. Musculoskeletal: No suspicious osseous lesion or compression fracture. Pelvis: The prostate gland is normal. The urinary bladder is normal. IMPRESSION: 1. A 0.5 cm calculus within the distal left ureter at the ureterovesicular junction resulting in mild left hydronephrosis. 2. Additional nonobstructing renal calculi measuring up to 0.8 cm. Dictated by: Dictated on workstation # [id number]
[2022-01-06] MEDS ORDERED: ONDA4TAB11 SL (06:36)
[2022-01-06] MEDS ORDERED: CIPR500T5 PO (06:36)
[2022-01-06] MEDS ORDERED: ACHD5005 PO (06:36)
[2022-01-06 06:42] VITALS: BP 135/73
== END 2022-01-06 06:45 | disposition home or self-care (01) ==
LOC: EDUNIT# 04:39 → ER 04:42
DX: N13.2 Hydronephrosis with renal and ureteral calculous obstruction (principal); E66.9 Obesity, unspecified; Z68.41 Body mass index [BMI] 40.0-44.9, adult
CPT/HCPCS: 36415; 74018; 74176; 80053; 81000; 85025; 87088

== ENCOUNTER 2022-01-08 07:50 | Emergency (ER) | payer BC ==
[~2022-01-08] VITALS: Ht 187 cm; Wt 145.0 kg
[~2022-01-08 07:50] MED LIST changes: +ONDA4TAB11 SL
[2022-01-08 08:07] LABS: BASOPHILS # (AUTO) 0.1 10^3/uL (0.0-0.1); BASOPHILS % (AUTO) 1 % (0-10); EOSINOPHILS # (AUTO) 0.1 10^3/uL (0.0-0.3); EOSINOPHILS % (AUTO) 1 % (0-10); HEMATOCRIT 45 % (40-54); HEMOGLOBIN 15.4 g/dL (13.3-17.7); LYMPHOCYTES # (AUTO) 1.7 10^3/uL (1.0-4.0); LYMPHOCYTES % (AUTO) 14 % (12-44); MEAN CORPUSCULAR HEMOGLOBIN 30 pg (25-34); MEAN CORPUSCULAR HGB CONC 35 g/dL (32-36); MEAN CORPUSCULAR VOLUME 88 fL (80-99); MEAN PLATELET VOLUME 9.1 fL (9.0-12.2); MONOCYTES % (AUTO) 8 % (0-12); NEUTROPHILS # (AUTO) 9.5 10^3/uL (1.8-7.8); NEUTROPHILS % (AUTO) 77 % (42-75); PLATELET COUNT 258 10^3/uL (130-400); WHITE BLOOD COUNT 12.4 10^3/uL (4.3-11.0)
--- NOTE | 2022-01-08 08:12 | ED Back Pain ---
General Chief Complaint: Back Problems Stated Complaint: BACK PAIN, L SIDE PAIN, VOMITING Source of Information: Patient, Other Exam Limitations: No Limitations History of Present Illness Date Seen by Provider: Jan 08, 2022 Time Seen by Provider: 07:49 Initial Comments Patient to ER by private conveyance with significant other and chief complaint of of third day of left flank left groin, sharp pain waxing and waning. We will give up Amol initially and was discovered here in the ER that he had a 5 mm left ureteral calculus. He started having some more significant pain but no hematuria grossly this morning and was not getting any control of his nausea or pain with hydrocodone 5 x 325 or Zofran 4 mg ODT. He had a history of diverticulitis with hemicolectomy and hernia repairs but no ureteral surgeries. He has not been able to eat or drink very well because of the poor control of nausea. He has not taking NSAIDs. He is on ciprofloxacin. Allergies and Home Medications Allergies Coded Allergies: cat dander (Verified Allergy, Unknown, 02/11/17) Patient Home Medication List Home Medication List Reviewed: Yes Ciprofloxacin HCl (Ciprofloxacin HCl) 500 Mg Tablet, 500 MG PO BID Prescribed by: SANDY VIDALES on 01/06/22635 Hydrocodone/Acetaminophen (Hydrocodone-Acetamin 5-325 mg) 1 Each Tablet, 1 TAB PO Q4H PRN for PAIN-MODERATE (5-7) Prescribed by: YESY MOSS on 08/13/21 122 Hydrocodone/Acetaminophen (Hydrocodone-Acetamin 5-325 mg) 1 Each Tablet, 1 TAB PO Q4H PRN for PAIN-MODERATE (5-7) Prescribed by: SANDY VIDALES on 01/06/2236 Ondansetron (Ondansetron Odt) 4 Mg Tab.rapdis, 4 MG SL Q4H PRN for NAUSEA/VOMITING Prescribed by: SANDY VIDALES on 01/06/22635 Discontinued Medications Ibuprofen (Ibuprofen) 800 Mg Tablet, 800 MG PO Q8H PRN for PAIN-MILD Discontinued Reason: No Longer Taking Prescribed by: YESY MOSS on 08/13/21 1222 Oxycodone HCl/Acetaminophen (Percocet 10-325 mg Tablet) 1 Each Tablet, 1 TAB PO Q6H PRN for PAIN-MODERATE Discontinued Reason: No Longer Taking Prescribed by: BESS JACKSON on 10/15/18 1514 Tamsulosin HCl (Flomax) 0.4 Mg Cap, 0.4 MG PO DAILY Discontinued Reason: No Longer Taking Prescribed by: YESY MOSS on 08/13/21 1222 Review of Systems Constitutional: No chills, No fever EENTM: No ear discharge, No ear pain Respiratory: No cough, No short of breath Cardiovascular: No edema, No palpitations Gastrointestinal: abdominal pain; No constipation, No diarrhea; loss of appetite, nausea, vomiting Genitourinary: No discharge, No dysuria, No hematuria Musculoskeletal: see HPI, back pain; No joint pain All Other Systems Reviewed Negative Unless Noted: Yes Past Sbvusoj-Cetqfk-Nvqheq Hx Patient Social History Tobacco Use?: No Substance use?: No Alcohol Use?: No Pt feels they are or have been: No Immunizations Up To Date Tetanus Booster (TDap): Unknown Seasonal Allergies Seasonal Allergies: Yes (HAY FEVER) Past Medical History Surgery/Hospitalization HX: HX: UC AND KIDNEY STONES SX: 2 COLON RESECTIONS, HERNIA SX Surgeries: Yes Abdominal, Appendectomy Respiratory: No Currently Using CPAP: No Currently Using BIPAP: No Cardiac: No Neurological: No Reproductive Disorders: No Genitourinary: No (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 2.0oz. 155.992642tl; 41.00 BMI Method:Stated General Appearance: WD/WN, Mild Distress, Obese HEENT: PERRL/EOMI, Pharynx Normal, Moist Mucous Membranes Neck: Full Range of Motion, Normal Inspection Cardiovascular: Regular Rate, Rhythm, No Edema Respiratory: No Accessory Muscle Use, No Respiratory Distress Gastrointestinal: Normal Bowel Sounds (Quiescent), No Organomegaly, Non Tender, Soft Extremity: Normal Capillary Refill, Normal Inspection Neurologic/Psychiatric: Alert, Oriented x3 Progress/Results/Core Measures Results/Orders Lab Results Laboratory Tests Test 01/08/22 08:00 Range/Units White Blood Count 12.4 H 4.3-11.0 10^3/uL Red Blood Count 5.11 4.30-5.52 10^6/uL Hemoglobin 15.4 13.3-17.7 g/dL Hematocrit 45 40-54 % Mean Corpuscular Volume 88 80-99 fL Mean Corpuscular Hemoglobin 30 25-34 pg Mean Corpuscular Hemoglobin Concent 35 32-36 g/dL Red Cell Distribution Width 13.0 10.0-14.5 % Platelet Count 258 130-400 10^3/uL Mean Platelet Volume 9.1 9.0-12.2 fL Immature Granulocyte % (Auto) 0 % Neutrophils (%) (Auto) 77 H 42-75 % Lymphocytes (%) (Auto) 14 12-44 % Monocytes (%) (Auto) 8 0-12 % Eosinophils (%) (Auto) 1 0-10 % Basophils (%) (Auto) 1 0-10 % Neutrophils # (Auto) 9.5 H 1.8-7.8 10^3/uL Lymphocytes # (Auto) 1.7 1.0-4.0 10^3/uL Monocytes # (Auto) 1.0 0.0-1.0 10^3/uL Eosinophils # (Auto) 0.1 0.0-0.3 10^3/uL Basophils # (Auto) 0.1 0.0-0.1 10^3/uL Immature Granulocyte # (Auto) 0.1 0.0-0.1 10^3/uL Sodium Level 137 135-145 MMOL/L Potassium Level 4.1 3.6-5.0 MMOL/L Chloride Level 103 98-107 MMOL/L Carbon Dioxide Level 22 21-32 MMOL/L Anion Gap 12 5-14 MMOL/L Blood Urea Nitrogen 16 7-18 MG/DL Creatinine 1.44 H 0.60-1.30 MG/DL Estimat Glomerular Filtration Rate 67 BUN/Creatinine Ratio 11 Glucose Level 97 70-105 MG/DL Calcium Level 9.5 8.5-10.1 MG/DL My Orders Orders - SIXTO LOMELI Ketorolac Injection (Toradol Injection) (01/08/22 08:15) Ondansetron Injection (Zofran Injectio (01/08/22 08:15) Cbc With Automated Diff (01/08/22 08:01) Basic Metabolic Panel (01/08/22 08:01) Abdomen/Kub 1view (01/08/22 08:01) Ed Iv/Invasive Line Start (01/08/22 08:01) Lactated Ringers (Lr 1000 Ml Iv Solution (01/08/22 08:15) Medications Given in ED Current Medications Medications Dose Ordered Sig/Sharon Route Start Time Stop Time Status Last Admin Dose Admin Ketorolac Tromethamine 30 mg ONCE ONCE IVP 01/08/22 08:15 01/08/22 08:16 DC 01/08/22 08:08 30 MG Lactated Ringer's 1,000 ml @ 0 mls/hr Q0M ONCE IV 01/08/22 08:15 01/08/22 08:16 DC 01/08/22 08:08 1,000 MLS/HR Ondansetron HCl 8 mg ONCE ONCE IVP 01/08/22 08:15 01/08/22 08:16 DC 01/08/22 08:08 8 MG Vital Signs/I&O 01/08/22 07:56 Temp 36.2 Pulse 73 Resp 18 B/P (MAP) 147/77 (100) Pulse Ox 95 Blood Pressure Mean: 143 Progress Progress Note #1: Time: 08:06 Progress Note Toradol and Zofran, a liter of fluids and a KUB. CBC BMP. Could be evidence the stone is moving into the bladder. Our goal is to he control his symptoms and hydrate him. Progress Note #2: Time: 09:04 Progress Note Patient states his pain is very tolerable almost gone. His nausea is gone. We will have him double up on his hydrocodone and Zofran. He does not want any more hydrocodone right now. We will send some Zofran in case he needs it. Instructed him to call Dr. Levine's office if he is not seeing some improvement by this afternoon but suspect now that his symptoms are under control and he can drink lots of fluids he will probably pass the stone today. Diagnostic Imaging Diagonstic Imaging: Xray Plain Films/CT/US/NM/MRI: abdomen Comments [facility]. [place], [place] NAME: WON MOISE [facility] REC#: [id number] PT STATUS: REG ER : 1990 PHYSICIAN: SIXTO LOMELI MD ADMIT DATE: 01/08/22/ER Draft Date of Exam:01/08/22 ABDOMEN/KUB 1VIEW INDICATION: Abdominal pain COMPARISON: 01/06/2022 TECHNIQUE: 2 radiographs of abdomen dated 01/08/2022. FINDINGS: Small amount of gas and stool is noted throughout the colon. No dilated loops of small bowel. No differential air-fluid levels. No suspicious calcifications overlying the left renal shadow. Previously noted 6 mm hyperdensity overlying the right renal shadow is not as well visualized, though may still be present, though this is obscured by overlying bowel gas. An ovoid 4 mm calcification is noted overlying the left aspect of the coccyx, which could relate to previously noted left UVJ calculus. No evidence of free air. No additional suspicious calcifications. No acute osseous abnormality. IMPRESSION: 4 mm ovoid calcification overlying the left aspect of the coccyx which could relate to previously noted left ureterovesicular junction calculus. Previously noted calcification overlying the right renal shadow is not as well visualized secondary to overlying bowel gas, though this suggested that it still may be present. This may relate to a right renal calculus. Nonobstructive bowel gas pattern. Dictated on workstation # [id number] Dict: 01/08/22 0827 Trans: 01/08/22 0833 [facility] [id number] Interpreted by: NITA MURILLO MD Electronically signed by: Reviewed: Reviewed by Me Departure Impression Primary Impression: Ureteral calculus, left Disposition: 01 HOME, SELF-CARE Condition: Stable Departure-Patient Inst. Decision time for Depature: 09:04 Referrals: GILDARDO VALERA MD (PCP/Family) Primary Care Physician DANIELA LEVINE MD Patient Instructions: Kidney Stones (DC) Add. Discharge Instructions: Strain your urine to see if you catch the stone. Expect to see resolution of symptoms 1 to 2 days after the stone passes. Continue taking your antibiotics and Flomax as directed. You may take 1 tablet of hydrocodone and if not seeing some improvement in 30 minutes take a second tablet. You may take Zofran 1 or 2 tablets every 6 hours as necessary for nausea or vomiting. If you do not pass the stone by this afternoon I would call Dr. Levine, urologist and look for a follow-up appointment this week. If your pain or nausea are out of control then return to the ER. All discharge instructions reviewed with patient and/or family. Voiced understanding. Scripts Ondansetron (Ondansetron Odt) 4 Mg Tab.rapdis 4-8 MG PO Q6H PRN for NAUSEA/VOMITING, #8 TAB 0 Refills Prov: SIXTO LOMELI 01/08/22 Copy Copies To 1: DANIELA LEVINE MD, TITUS J Jan 08, 2022 08:12
[2022-01-08] MEDS ORDERED: KETOROLAC 30 MG/ML VIAL IVP ONE (08:15)
[2022-01-08] MEDS ORDERED: ONDANSETRON 4 MG/2 ML (SDV) Z0FRAN IVP ONE (08:15)
[2022-01-08] MEDS ORDERED: LACTATED RINGERS 1,000 ML IV ONE (08:15)
[2022-01-08 08:19] LABS: POTASSIUM 4.1 MMOL/L (3.6-5.0)
[2022-01-08 08:21] LABS: CALCIUM 9.5 MG/DL (8.5-10.1)
[2022-01-08 08:25] LABS: CREATININE SERUM 1.44 MG/DL (0.60-1.30)
--- NOTE | 2022-01-08 08:34 | Diagnostic Imaging Report ---
INDICATION: Abdominal pain COMPARISON: 01/06/2022 TECHNIQUE: 2 radiographs of abdomen dated 01/08/2022. FINDINGS: Small amount of gas and stool is noted throughout the colon. No dilated loops of small bowel. No differential air-fluid levels. No suspicious calcifications overlying the left renal shadow. Previously noted 6 mm hyperdensity overlying the right renal shadow is not as well visualized, though may still be present, though this is obscured by overlying bowel gas. An ovoid 4 mm calcification is noted overlying the left aspect of the coccyx, which could relate to previously noted left UVJ calculus. No evidence of free air. No additional suspicious calcifications. No acute osseous abnormality. IMPRESSION: 4 mm ovoid calcification overlying the left aspect of the coccyx which could relate to previously noted left ureterovesicular junction calculus. Previously noted calcification overlying the right renal shadow is not as well visualized secondary to overlying bowel gas, though this suggested that it still may be present. This may relate to a right renal calculus. Nonobstructive bowel gas pattern. Dictated by: Dictated on workstation # [id number]
[2022-01-08] MEDS ORDERED: ONDA4TAB11 PO (09:06)
[2022-01-08 09:11] VITALS: BP 147/77
== END 2022-01-08 09:11 | disposition home or self-care (01) ==
LOC: EDUNIT# 07:50 → ER 07:51
DX: N20.1 Calculus of ureter (principal); E66.9 Obesity, unspecified; Z68.41 Body mass index [BMI] 40.0-44.9, adult; Z90.49 Acquired absence of other specified parts of digestive tract
CPT/HCPCS: 36415; 74018; 80048; 85025

== ENCOUNTER → 2022-04-04 | Outpatient (CLI) | payer BC ==
[~2022-04-04] MED LIST changes: +ONDA4TAB11 PO
== END ==
LOC: LAB 09:55
PROVIDERS: ATTEND Family Medicine
DX: J02.9 Acute pharyngitis, unspecified (principal); R50.9 Fever, unspecified
CPT/HCPCS: 36415; 86308

== ENCOUNTER 2023-01-16 13:11 | Outpatient (RCR) | payer BC | END 2023-01-25 | LOC: LAB 13:11 | PROVIDERS: ATTEND Family Medicine | DX: N20.0 Calculus of kidney (principal) | CPT/HCPCS: 88300 ==

== ENCOUNTER → 2023-03-11 | Outpatient (CLI) | payer BC ==
[2023-03-11 10:07] LABS: BASOPHILS # (AUTO) 0.1 10^3/uL (0.0-0.1); BASOPHILS % (AUTO) 1 % (0-10); EOSINOPHILS # (AUTO) 0.1 10^3/uL (0.0-0.3); EOSINOPHILS % (AUTO) 1 % (0-10); HEMATOCRIT 48 % (40-54); HEMOGLOBIN 16.5 g/dL (13.3-17.7); LYMPHOCYTES # (AUTO) 2.4 10^3/uL (1.0-4.0); LYMPHOCYTES % (AUTO) 33 % (12-44); MEAN CORPUSCULAR HEMOGLOBIN 30 pg (25-34); MEAN CORPUSCULAR HGB CONC 34 g/dL (32-36); MEAN CORPUSCULAR VOLUME 89 fL (80-99); MEAN PLATELET VOLUME 9.3 fL (9.0-12.2); MONOCYTES # (AUTO) 0.4 10^3/uL (0.0-1.0); MONOCYTES % (AUTO) 6 % (0-12); NEUTROPHILS # (AUTO) 4.3 10^3/uL (1.8-7.8); NEUTROPHILS % (AUTO) 59 % (42-75); PLATELET COUNT 249 10^3/uL (130-400); WHITE BLOOD COUNT 7.3 10^3/uL (4.3-11.0)
[2023-03-11 10:27] LABS: ALANINE AMINOTRANSFERASE 79 U/L (0-55); ALBUMIN 4.8 GM/DL (3.2-4.5); ALKALINE PHOSPHATASE 58 U/L (40-136); BILIRUBIN,TOTAL 0.6 MG/DL (0.1-1.0); BUN/CREATININE RATIO 14; CARBON DIOXIDE 24 MMOL/L (21-32); CHLORIDE 105 MMOL/L (98-107); CHOLESTEROL 180 MG/DL (< 200); CREATININE SERUM 0.88 MG/DL (0.60-1.30); GFR ESTIMATED 117; GLUCOSE 102 MG/DL (70-105); HDL CHOLESTEROL 34 MG/DL (40-60); POTASSIUM 4.3 MMOL/L (3.6-5.0); SODIUM 140 MMOL/L (135-145); TRIGLYCERIDES 116 MG/DL (<150); VLDL CHOLESTEROL 23 MG/DL (5-40)
[2023-03-11 10:48] LABS: FREE T4 (FREE THYROXINE) 1.08 NG/DL (0.70-1.48)
== END ==
LOC: LAB 09:43
PROVIDERS: ATTEND Family Medicine
DX: Z00.01 Encounter for general adult medical examination with abnormal findings (principal); R53.83 Other fatigue
CPT/HCPCS: 36415; 80053; 80061; 84439; 84443; 85025